=== PATIENT | female | born 1940 | race Caucasian/White ===

== ENCOUNTER → 2020-07-19 10:50 | Outpatient (BNVA) | payer MEDICARE, SELFPAY | PROVIDERS: PCP Internal Medicine; Visit Provider Surgery | DX: D05.12 Intraductal carcinoma in situ of left breast (principal) | CPT/HCPCS: 99212 ==

== ENCOUNTER → 2020-08-01 09:50 | Outpatient (BNV) | payer MEDICARE, SELFPAY | PROVIDERS: PCP Internal Medicine; Visit Provider Internal Medicine Medical Oncology | DX: D05.12 Intraductal carcinoma in situ of left breast (principal) | CPT/HCPCS: 99212; 99213; 99214 ==

== ENCOUNTER 2020-10-27 10:12 | Outpatient (REF) | payer MEDICARE, SELFPAY ==
[2020-10-27 12:08] LABS: Alanine Aminotransferase 27 U/L (0-31); Anion Gap 11 (12-20); Aspartate Amino Transferase 28 U/L (5-31); Blood Urea Nitrogen 13 mg/dL (9-16); Calcium 9.4 mg/dL (8.4-10.2); Carbon Dioxide 29 mmol/L (22-29); Chloride 108 mmol/L (96-108); Cholesterol 175 mg/dL; Estimated Glomerular Filt Rate > 60; Glucose Fasting 97 mg/dL (60-99); HDL Cholesterol 55 mg/dL; LDL Cholesterol Calculated 109 mg/dl; Potassium 4.6 mmol/L (3.3-5.1); Sodium 143 mmol/L (135-145); Triglycerides 59 mg/dL
[2020-10-27 12:10] LABS: Vitamin D 25-OH Total 43.8 ng/mL (>30)
== END 2020-10-27 10:13 | disposition home or self-care (01) ==
LOC: HO.LAB 10:12
PROVIDERS: PCP Internal Medicine; Visit Provider Internal Medicine
DX: E55.9 Vitamin D deficiency, unspecified (principal); E78.5 Hyperlipidemia, unspecified; I10 Essential (primary) hypertension; Z78.0 Asymptomatic menopausal state
CPT/HCPCS: 36415; 80048; 80061; 82306; 84450; 84460

== ENCOUNTER 2020-11-03 10:01 | Outpatient (REF) | payer MEDICARE, SELFPAY ==
--- NOTE | ~2020-11-03 | XR_ITS ---
EXAMINATION: XR BILATERAL HIPS WITH AP PELVIS CLINICAL INFORMATION: Left hip pain. COMPARISON: None TECHNIQUE: AP view of the pelvis and 2 views of each hip were obtained. FINDINGS: Moderate to severe bilateral hip joint osteoarthritis, with joint space loss more prominent axillary, osteophytes, subchondral sclerosis and cysts. No evidence of acute fracture or dislocation. Mild bilateral SI joint arthritis. Degenerative changes in the lower lumbar spine. Mild symphysis pubis degeneration. No acute pelvic fractures identified. XR/XR hip BI w PEL1V IMPRESSION: Moderate to severe bilateral hip joint osteoarthritis. Mild bilateral SI joint arthritis. Mild symphysis pubis degeneration.
== END 2020-11-03 10:02 | disposition home or self-care (01) ==
LOC: HO.HMGCX 10:01
PROVIDERS: PCP Internal Medicine; Visit Provider Internal Medicine
DX: M25.552 Pain in left hip (principal)
CPT/HCPCS: 73521

== ENCOUNTER → 2020-11-30 08:52 | Outpatient (BNVA) | payer MEDICARE, SELFPAY | PROVIDERS: Visit Provider Orthopaedic Surgery | DX: M48.061 Spinal stenosis, lumbar region without neurogenic claudication (principal) | CPT/HCPCS: 99202 ==

== ENCOUNTER 2021-03-10 09:00 | Outpatient (RCR) | payer MEDICARE, SELFPAY ==
--- NOTE | 2021-01-11 15:53 | MHC.PT.EP ---
[facility] [place] Office [place] Office [place] Office [address] Melodie Duvall [address] [phone] F: [phone] F: [phone] F: [phone] F: [phone] Physical Therapy Plan of Care Date of Evaluation: Date of Surgery: NA Diagnosis: OSTEOARTHRITIS OF BOTH HIPS Assessment: Pt IS 80 YO F REFERRED TO PT FROM DR HARRELL WITH OA SI AND HIP JOINTS. Pt REPORTS ON 08/2719 Pt WAS TRYING TO STAND UP FROM KNEELING AND WAS HAVING A HARD TIME GETTING UP. SHE REPORTS SINCE THEN SHE FEELS LIKE HER LEGS ARE WEAK AND HAS BEEN HAVING SOME PAIN IN LB/HIPS AND LES. PRESENTS TO PT WITH DECREASED LE ENDURANCE, LBP, SOME DECREASE IN LE FLEXIBILITY. SHOULD BENEFIT FROM PT TO ADDRESS THESE ISSUES. OF NOTE, Pt WAS GOING TO [facility] FOR EXERCISE 1X/WK REGULARLY BEFORE COVID AND HAS NOTE RETURNED. ED RE OK TO TRY THESE CLASSES AGAIN Frequency and Duration: The patient will be seen 2X/WK X 6 WKS Short Term Goals: 1. INCREASED AWARENESS BACK CARE 2. CENTRALIZE [employer] Goals: 1. I HEP WITH DC EX PLAN 2. DECREASED BACK PAIN AND LE PAIN AT LEAST 50% WITH ADLS Treatment Plan: Modalities to reduce pain, spasms and effusion. Manual therapy to restore motion and function. Therapeutic exercise to improve strength and flexibility. Neuromuscular re-education for posture and balance. Therapeutic activities to return to functional activities of daily living. Electronically signed by: RONEN TIM PT Please sign and return to therapist. Thank you for your referral.
--- NOTE | 2021-05-04 07:54 | MHC.PT.DC ---
[facility] [place] Office [place] Office [place] Office [address] Melodie Duvall [address] [phone] F: [phone] F: [phone] F: [phone] F: [phone] Physical Therapy Discharge Report Diagnosis: OSTEOARTHRITIS OF BOTH HIPS Date of Surgery: NA Date of Evaluation: 01/11/21 Date of Discharge: 03/10/21 Treatments to Date: 12 Cancellations to Date: No Shows to Date: Discharge Status: Achieved Goals Improved Function Independent with HEP Discharge Summary: PER ASSESSMENT FROM LAST NOTE (03/10/21): 'OVERALL BETTER THAN SOC, HAS MET MOST PT GOALS, TRANSITION TO SR CTR EXERCISE PROGRAMS' Electronically signed by: RONEN TIM PT Please sign and return to therapist. Thank you for your referral.
== END 2021-05-04 07:54 | disposition home or self-care (01) ==
LOC: HO.PT 09:00
PROVIDERS: PCP Internal Medicine; Visit Provider Internal Medicine
DX: M46.1 Sacroiliitis, not elsewhere classified (principal)
CPT/HCPCS: 97110; 97140; 97150; 97161; 97530

== ENCOUNTER → 2021-03-21 08:53 | Outpatient (BNVA) | payer MEDICARE, SELFPAY | PROVIDERS: PCP Internal Medicine; Referring Provider Internal Medicine; Visit Provider Surgery | DX: D05.12 Intraductal carcinoma in situ of left breast (principal) | CPT/HCPCS: 99212 ==

== ENCOUNTER 2021-04-11 08:25 | Outpatient (REF) | payer MEDICARE, SELFPAY ==
--- NOTE | ~2021-04-11 | MM_ITS ---
EXAMINATION: BONE DENSITOMETRY CLINICAL INDICATION: Asymptomatic menopausal state. COMPARISON: Previous BD dated 03/20/2018 and baseline BD dated 01/16/2010. TECHNIQUE: Using a [employer] DXA System (software version: 13.1) manufactured by [employer] you [employer], dual-energy x-ray absorptiometry was performed of the lumbar spine and left hip. The images are of good technical quality. Summary results are attached. FINDINGS: AP SPINE L1-L4: Current: BMD 0.960 g/cm2, Z-score -0.2, T-score -1.8, osteopenia, 3.6% increase from previous, 0.4% increase from baseline (<5% change is not significant). Prior: BMD 0.927 g/cm2. Baseline: BMD 0.956 g/cm2. LEFT FEMUR, NECK: Current: BMD 0.764 g/cm2, Z-score 0.0, T-score -2.0, osteopenia. Prior: BMD 0.700 g/cm2. Baseline: BMD 0.762 g/cm2. LEFT FEMUR, TOTAL: Current: BMD 0.747 g/cm2, Z-score -0.3, T-score -2.1, osteopenia, 0.8% decrease from previous, 7.2% decrease from baseline (<5% change is not significant). Prior: BMD 0.753 g/cm2. Baseline: BMD 0.805 g/cm2. IDENTIFIED RISK FACTORS: Height loss, low calcium intake, family history (parental hip fracture), menopause. HISTORY OF FRACTURE: None listed. MEDICATIONS: Calcium supplements or multivitamin, vitamin D. MM/XR DEXA axial skeleton IMPRESSION: 1. DIAGNOSIS: Osteopenia based on the lowest T-score value of -2.1 in the total femur applying World Health Organization criteria. 2. 10-YEAR FRACTURE RISK PREDICTION, FRAX: Major osteoporotic fracture (clinical spine, forearm, hip or shoulder) 27.1%. Hip fracture 16.9%. 3. Treatment Recommendations: NOF guidelines recommend consideration for treatment in postmenopausal women and men age 50 and older presenting with the following: -A hip or vertebral (clinical or morphometric) fracture. -T-score less than or equal to -2.5 at the femoral neck or spine after appropriate evaluation to exclude secondary causes. -Low bone mass at the hip or spine and a 10-year fracture probability by FRAX of greater than or equal to 3% for hip fracture or greater than or equal to 20% for major osteoporotic fracture based on the [place] adapted WHO algorithm. 4. Other Recommendations: All treatment decisions require clinical judgment and consideration of individual patient factors, including patient preferences, comorbidities, previous drug use, risk factors not captured in the FRAX model (e.g. frailty, falls, vitamin D deficiency, increased bone turnover, interval significant decline in bone density) and possible under or overestimation of fracture risk by FRAX. Additional medical evaluation for secondary cause of low bone mineral density may be appropriate. FUTURE SCAN RECOMMENDATION: People with diagnosed cases of osteoporosis or at high risk for fracture should have regular bone mineral density tests. For patients eligible for Medicare, routine testing is allowed once every 2 years. The testing frequency can be increased to one year for patients who have rapidly progressing disease, those who are receiving or discontinuing medical therapy to restore bone mass, or have additional risk factors.
--- NOTE | ~2021-04-11 | MM_ITS ---
EXAMINATION: MM SCREENING DIGITAL BREAST TOMOSYNTHESIS, BILATERAL CLINICAL INFORMATION: Screening. Asymptomatic. 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 COMPARISON: Mammography: 03/25/2020, 03/23/2019, 03/20/2018 TECHNIQUE: Digital breast tomosynthesis is performed in both the craniocaudal and mediolateral oblique views along with computer-aided detection (CAD). Synthesized 2D images are generated from the tomosynthesis. FINDINGS: The breasts are heterogeneously dense, which may obscure small masses (ACR BI-RADS breast composition Category c). There are no significant masses, abnormal calcifications, or other abnormalities. Parenchymal pattern is similar to prior studies. No developing density. The axilla and skin contours are unremarkable. MM/MM tomosynthesis screening BI IMPRESSION: No mammographic evidence of malignancy. ASSESSMENT: BI-RADS 1: Negative RECOMMENDATION: Routine annual mammography screening. This patient's information was entered into a reminder system with a target due date for their next mammogram.
== END 2021-04-11 08:26 | disposition home or self-care (01) ==
LOC: HO.MAMMO 08:25
PROVIDERS: Visit Provider Internal Medicine
DX: Z13.820 Encounter for screening for osteoporosis (principal); Z78.0 Asymptomatic menopausal state; Z12.31 Encounter for screening mammogram for malignant neoplasm of breast
CPT/HCPCS: 77063; 77067; 77080

== ENCOUNTER 2021-04-12 09:14 | Outpatient (REF) | payer MEDICARE, SELFPAY ==
[2021-04-12 10:04] LABS: Alanine Aminotransferase 29 U/L (0-31); Aspartate Amino Transferase 28 U/L (5-31); Cholesterol 172 mg/dL; HDL Cholesterol 48 mg/dL; LDL Cholesterol Calculated 113 mg/dl; Triglycerides 55 mg/dL
[2021-04-12 10:26] LABS: Vitamin D 25-OH Total 41.2 ng/mL (>30)
== END 2021-04-12 09:15 | disposition home or self-care (01) ==
LOC: HO.LAB 09:14
PROVIDERS: PCP Internal Medicine; Visit Provider Internal Medicine
DX: E78.5 Hyperlipidemia, unspecified (principal); I10 Essential (primary) hypertension
CPT/HCPCS: 36415; 80061; 82306; 84450; 84460

== ENCOUNTER 2021-12-13 08:51 | Outpatient (REF) | payer MEDICARE, SELFPAY ==
[2021-12-13 10:16] LABS: Cholesterol 225 mg/dL; HDL Cholesterol 51 mg/dL; LDL Cholesterol Calculated 157 mg/dl; Triglycerides 85 mg/dL
[2021-12-13 10:37] LABS: Vitamin D 25-OH Total 38.4 ng/mL (>30)
== END 2021-12-13 08:52 | disposition home or self-care (01) ==
LOC: HO.LAB 08:51
PROVIDERS: PCP Internal Medicine; Visit Provider Internal Medicine
DX: E78.5 Hyperlipidemia, unspecified (principal); I10 Essential (primary) hypertension; M85.89 Other specified disorders of bone density and structure, multiple sites; Z78.0 Asymptomatic menopausal state
CPT/HCPCS: 36415; 80061; 82306

== ENCOUNTER → 2022-03-22 09:23 | Outpatient (BNVA) | payer MEDICARE, SELFPAY | PROVIDERS: PCP Internal Medicine; Visit Provider Surgery | DX: D05.12 Intraductal carcinoma in situ of left breast (principal) | CPT/HCPCS: 99212 ==

== ENCOUNTER 2022-04-12 08:53 | Outpatient (REF) | payer MEDICARE, SELFPAY ==
--- NOTE | ~2022-04-12 | MM_ITS ---
EXAMINATION: MM SCREENING DIGITAL BREAST TOMOSYNTHESIS, BILATERAL CLINICAL INFORMATION: Screening. Asymptomatic. Left lumpectomy for DCIS, 2011. COMPARISON: Mammography: 04/11/2021, 03/25/2020, 03/23/2019 TECHNIQUE: Digital breast tomosynthesis is performed in both the craniocaudal and mediolateral oblique views along with computer-aided detection (CAD). Synthesized 2D images are generated from the tomosynthesis. FINDINGS: The breasts are heterogeneously dense, which may obscure small masses (ACR BI-RADS breast composition Category c). There is minor scarring on left and mild reduced breast size consistent with the prior lumpectomy. Parenchymal pattern is similar to prior exams. There are no significant masses, abnormal calcifications, or other abnormalities. There is no developing density or interval architectural abnormality. The axilla are unremarkable. MM/MM tomosynthesis screening BI IMPRESSION: No mammographic evidence of malignancy. ASSESSMENT: BI-RADS 2: Benign RECOMMENDATION: Routine annual mammography screening. This patient's information was entered into a reminder system with a target due date for their next mammogram.
== END 2022-04-12 08:54 | disposition home or self-care (01) ==
LOC: HO.MAMMO 08:53
PROVIDERS: PCP Internal Medicine; Visit Provider Internal Medicine
DX: Z12.31 Encounter for screening mammogram for malignant neoplasm of breast (principal)
CPT/HCPCS: 77063; 77067

== ENCOUNTER 2022-05-25 09:05 | Outpatient (REF) | payer MEDICARE, SELFPAY ==
[2022-05-25 10:28] LABS: Alanine Aminotransferase 196 U/L (0-31); Anion Gap 14 (12-20); Aspartate Amino Transferase 146 U/L (5-31); Blood Urea Nitrogen 11 mg/dL (9-16); Calcium 9.3 mg/dL (8.4-10.2); Carbon Dioxide 27 mmol/L (22-29); Chloride 105 mmol/L (96-108); Cholesterol 250 mg/dL; Estimated Glomerular Filt Rate > 60; Glucose Fasting 102 mg/dL (60-99); HDL Cholesterol 65 mg/dL; LDL Cholesterol Calculated 170 mg/dl; Potassium 4.2 mmol/L (3.3-5.1); Sodium 142 mmol/L (135-145); Triglycerides 79 mg/dL
== END 2022-05-25 09:06 | disposition home or self-care (01) ==
LOC: HO.LAB 09:05
PROVIDERS: PCP Internal Medicine; Visit Provider Internal Medicine
DX: I10 Essential (primary) hypertension (principal); E78.5 Hyperlipidemia, unspecified
CPT/HCPCS: 36415; 80048; 80061; 82550; 84450; 84460

== ENCOUNTER 2022-06-08 13:11 | Outpatient (REF) | payer MEDICARE, SELFPAY ==
[2022-06-08 14:13] LABS: Urine Cytology See Pathology rpt
[2022-06-08 14:30] LABS: Appearance Urine Turbid; Color Urine Dark Yellow; Glucose Urine UA Negative (Negative); Leukocyte Esterase Urine Small (1+) (Negative); Nitrite Urine Positive (Negative); PH 5.5 (5.0-9.0); Specific Gravity - Urine >= 1.030 (1.005-1.025); UMIC TRIGGER UACC YES; Urine Blood Trace (Negative); Urine Ketones Negative (Negative); Urine Protein 100 (2+) mg/dL (Neg-Trace)
[2022-06-08 14:42] LABS: Bacteria Urine None Seen (None Seen); Calcium Oxalate Crystals Urine Present; Granular Casts Urine Present; UACC Culture Trigger YES; WBC Urine 0-5 /HPF (0-5)
[2022-06-08 14:55] LABS: Alanine Aminotransferase 1007 U/L (0-31); Albumin Level 4.3 g/dL (3.5-5.0); Alkaline Phosphatase 1007 U/L (39-117); Aspartate Amino Transferase 894 U/L (5-31); Bilirubin Total 9.6 mg/dL (0.0-1.0); Total Protein 7.4 g/dL (6.5-8.0)
[2022-06-11 05:48] LABS: HBS Num1 3.23 mIU/mL (0-7.99); HBc Num1 0.14 S/CO (0.00-0.79); HBsAGNum1 0.17 S/CO (0.00-0.99); Hepatitis B Core Antibody Nonreactive (Nonreactive); Hepatitis B Surface Antigen Negative (Negative); ~HepC Num1 0.18 S/CO (0.00-0.79); ~Hepatitis B Surface Antibody NONREACTIVE (Nonreactive); ~Hepatitis C Antibody Nonreactive (Nonreactive)
[2022-06-12 17:49] LABS: Parvovirus B19 IgG 6.31; Parvovirus B19 IgM <0.9
[2022-06-13 04:33] LABS: Hepatitis A Antibody IgM 0.34 Index (0-0.79); ~Hepatitis A Antibody IgM Nonreactive (Nonreactive)
== END 2022-06-08 13:12 | disposition home or self-care (01) ==
LOC: HO.HMGCLDS 13:11
PROVIDERS: PCP Internal Medicine; Visit Provider Internal Medicine
DX: R10.11 Right upper quadrant pain (principal); R17 Unspecified jaundice; R74.8 Abnormal levels of other serum enzymes
CPT/HCPCS: 36415; 80076; 81001; 86704; 86706; 86709; 86747; 86803; 87086; 87340; 88112

== ENCOUNTER 2022-06-11 09:20 | Outpatient (REF) | payer MEDICARE, SELFPAY ==
--- NOTE | ~2022-06-11 | US_ITS ---
EXAMINATION: US ABDOMEN COMPLETE CLINICAL INFORMATION: Right upper quadrant pain. COMPARISON: No prior abdominal ultrasound currently available for comparison. CT scan of the abdomen dated August 28, 2006. TECHNIQUE: Real-time imaging of the abdominal viscera. FINDINGS: PANCREAS: Not well visualized. ABDOMINAL AORTA: The proximal, mid, and distal segments are normal in caliber. INFERIOR VENA CAVA: Visualized portions are normal. LIVER: The technologist does not submitted images measuring the size of the liver. The liver contour appears unremarkable. Parenchymal echogenicity appears unremarkable. No focal hepatic lesion is demonstrated on the images submitted. The previously identified right hepatic hemangioma was not visualized by the technologist. Moderate intrahepatic biliary ductal dilation is seen. Hepatopedal portal flow. GALLBLADDER: Mildly distended gallbladder, measuring approximately 13.7 cm in length by 5.1 cm in diameter. Layering echogenic bile/sludge. The gallbladder is physiologically distended without evidence of stones, polyps, wall thickening or pericholecystic fluid. Technologist reports positive sonographic Mayo's sign. COMMON BILE DUCT: Measures 2.1 cm in diameter. RIGHT KIDNEY: No hydronephrosis. No renal calculi or focal parenchymal lesions. The kidney measures 10.8 cm in maximum dimension. LEFT KIDNEY: No hydronephrosis. No renal calculi or focal parenchymal lesions. The kidney measures 10.7 cm in maximum dimension. SPLEEN: The spleen measures 8.0 cm in maximum dimension. FREE FLUID: None. US/US abdomen complete IMPRESSION: Abnormal intra and extrahepatic biliary ductal dilation. Pancreas not well visualized on the images submitted. Occult neoplasm cannot be excluded. Contrast-enhanced MRI is recommended for further evaluation. Mildly distended gallbladder containing layering, echogenic bile/sludge. No evidence of gallbladder wall thickening. Technologist reports positive sonographic Mayo's sign.
== END 2022-06-11 09:21 | disposition home or self-care (01) ==
LOC: HO.HMGCX 09:20
PROVIDERS: PCP Internal Medicine; Visit Provider Internal Medicine
DX: R10.11 Right upper quadrant pain (principal); R74.8 Abnormal levels of other serum enzymes; R17 Unspecified jaundice
CPT/HCPCS: 76700

== ENCOUNTER 2022-06-12 11:53 | Outpatient (REF) | payer MEDICARE, SELFPAY ==
[2022-06-12 14:28] LABS: Alanine Aminotransferase 1098 U/L (0-31); Albumin Level 4.1 g/dL (3.5-5.0); Alkaline Phosphatase 885 U/L (39-117); Aspartate Amino Transferase 835 U/L (5-31); Bilirubin Direct 8.2 mg/dL (0.0-0.5); Bilirubin Total 12.1 mg/dL (0.0-1.0); Gamma Glutamyl Transpeptidase 1598 U/L (7-33); Lipase 84 U/L (8-78); Total Protein 6.9 g/dL (6.5-8.0)
== END 2022-06-12 11:54 | disposition home or self-care (01) ==
LOC: HO.LAB 11:53
PROVIDERS: PCP Internal Medicine; Visit Provider Internal Medicine
DX: R17 Unspecified jaundice (principal); R74.8 Abnormal levels of other serum enzymes
CPT/HCPCS: 36415; 80076; 82977; 83690; 86704; 86706; 87340; 99202

== ENCOUNTER 2022-06-12 16:21 | Inpatient (IN) | payer MEDICARE, SELFPAY ==
--- NOTE | ~2022-06-12 | MR_ITS ---
EXAMINATION: MR ABDOMEN WITHOUT AND WITH CONTRAST CLINICAL INFORMATION: Pancreatic cancer COMPARISON: CT 06/12/2022 TECHNIQUE: MR abdomen was performed without and with use of 7 mL intravenous Gadavist gadolinium contrast. Postcontrast images are performed in multiphase dynamic sequences. Imaging was performed in 3 planes. FINDINGS: LUNG BASES: The visualized lung bases are unremarkable. LIVER, GALLBLADDER, AND BILIARY TREE: The liver is normal in size, smooth in contour, and normal in signal. There is diffuse intrahepatic and extrahepatic biliary ductal dilatation. The common hepatic duct measures up to 2 cm. Centrally in segment 7 there is a and T1 dark lesion which has signal characteristics consistent with a hemangioma on postcontrast imaging.. Distended gallbladder with layering sludge internally. The common bile duct is not seen beyond its mid course, possibly occluded by external compression versus intraductal expansion of mass. PANCREAS: Diffuse pancreatic atrophy. The pancreatic duct is dilated to 0.7 cm in the pancreatic body. There is change in signal expanding the duct at the pancreatic neck, appearing more isointense on T1-weighted imaging compared to the adjacent duct which is low in signal. There is suggestion of mild enhancement in this region. Somewhat heterogeneous appearance of the tissue at the pancreatic head with somewhat nodular contour, may also represent an associated mass. This is difficult to specifically measure, though this area of tissue measures 3.5 cm on series 101 image 62. The superior mesenteric artery and superior mesenteric vein have no adjacent mass. SPLEEN: Normal. ADRENAL GLANDS: Normal. KIDNEYS AND URETERS: The kidneys are normal in size, shape, and enhance symmetrically. No hydronephrosis. No perinephric stranding. GASTROINTESTINAL TRACT: No bowel obstruction. No ascites or fluid collection. ABDOMINAL WALL: No significant hernia is appreciated. LYMPH NODES: No lymphadenopathy. VASCULAR: Unremarkable. OSSEOUS STRUCTURES: Marrow signal normal. MR/MR abdomen wo/w con IMPRESSION: 1. Abnormal appearance of the pancreatic duct. There is change in signal expanding the pancreatic duct at the pancreatic neck. There is suggestion of mild enhancement in this region. This is suggestive of a mass within the duct. The adjacent pancreatic head tissue is somewhat heterogeneous and could represent additional mass. 2. The common bile duct is not seen beyond its mid course, possibly occluded by external compression versus intraductal expansion of mass. There is diffuse intrahepatic and extrahepatic biliary ductal dilatation. Distended gallbladder with layering sludge. 3. Hepatic hemangioma.
--- NOTE | ~2022-06-12 | FL_ITS ---
EXAMINATION: XR FLUOROSCOPY WITH IMAGES CLINICAL INFORMATION: ERCP COMPARISON: MRI from 06/13/2022. TECHNIQUE: Fluoroscopy Supervised By: Dr. Pierre Quiñones. Fluoroscopy Time: 229.4 seconds. Cumulative Dose: 58.47 mGy. Images: 5. FINDINGS: An endoscope is noted. There is cannulation of the pancreatic duct. A stent is initially noted, though is not seen on the final images. No definite contrast seen. FL/FL guidance in OR IMPRESSION: Fluoroscopic guidance for ERCP. Please refer to procedural report for further information.
--- NOTE | ~2022-06-12 | IR_ITS ---
EXAMINATION: PERCUTANEOUS TRANSHEPATIC CHOLANGIOGRAM AND EXTERNAL BILIARY DRAINAGE catheter placement CLINICAL INFORMATION: Jaundice. PTC for failed ERCP. COMPARISON: Previous ultrasound CT and MRI from earlier this month TECHNIQUE: Procedure and risks and benefits including bleeding, infection, injury to the liver were discussed with the patient and informed consent was obtained. The right upper quadrant was prepped and draped in the usual sterile fashion. The skin and soft tissues were anesthetized with 1% lidocaine plain. Using ultrasound and fluoroscopic guidance, access to a peripheral right-sided intrahepatic bile duct was obtained. Contrast was injected confirming intraductal location. Over an 018 wire, a 6 [place] AccuStick system was positioned in the right-sided intrahepatic bile ducts. Contrast was injected confirming adequate placement in the bile duct. An 035 guidewire was advanced through the 6 [place] dilator. This passed without resistance centrally. Following serial dilatation, an 8.5 [place] biliary drainage catheter was positioned. Bile specimen was sent for culture and cytology. Patient received Versed 2 mg and fentanyl 100 mcg intravenously during the procedure. Conscious sedation was provided by registered nurse under my direct supervision. Tdqp-na-axqb contact time was 55 minutes. FINDINGS: There is right-sided intrahepatic biliary duct dilatation. There is limited filling of the left-sided intrahepatic bile ducts. The common hepatic and common bile duct appear dilated. There is an abrupt cut off of the distal common bile duct. There is no contrast opacification of the duodenum. Final images demonstrate placement of an external biliary drainage catheter with pigtail coiled in the common bile duct. Fluoroscopy time 8.6 minutes. DAP 1293 loja per centimeter squared. 11 saved fluoroscopic images. IR/IR us guide needle place IMPRESSION: Percutaneous right transhepatic cholangiogram and placement of an external biliary drainage catheter with tip coiled in the common bile duct.
--- NOTE | ~2022-06-12 | IR_ITS ---
EXAMINATION: PERCUTANEOUS TRANSHEPATIC CHOLANGIOGRAM AND EXTERNAL BILIARY DRAINAGE catheter placement CLINICAL INFORMATION: Jaundice. PTC for failed ERCP. COMPARISON: Previous ultrasound CT and MRI from earlier this month TECHNIQUE: Procedure and risks and benefits including bleeding, infection, injury to the liver were discussed with the patient and informed consent was obtained. The right upper quadrant was prepped and draped in the usual sterile fashion. The skin and soft tissues were anesthetized with 1% lidocaine plain. Using ultrasound and fluoroscopic guidance, access to a peripheral right-sided intrahepatic bile duct was obtained. Contrast was injected confirming intraductal location. Over an 018 wire, a 6 [place] AccuStick system was positioned in the right-sided intrahepatic bile ducts. Contrast was injected confirming adequate placement in the bile duct. An 035 guidewire was advanced through the 6 [place] dilator. This passed without resistance centrally. Following serial dilatation, an 8.5 [place] biliary drainage catheter was positioned. Bile specimen was sent for culture and cytology. Patient received Versed 2 mg and fentanyl 100 mcg intravenously during the procedure. Conscious sedation was provided by registered nurse under my direct supervision. [id number]-ct-[id number] contact time was 55 minutes. FINDINGS: There is right-sided intrahepatic biliary duct dilatation. There is limited filling of the left-sided intrahepatic bile ducts. The common hepatic and common bile duct appear dilated. There is an abrupt cut off of the distal common bile duct. There is no contrast opacification of the duodenum. Final images demonstrate placement of an external biliary drainage catheter with pigtail coiled in the common bile duct. Fluoroscopy time 8.6 minutes. DAP 1293 loja per centimeter squared. 11 saved fluoroscopic images. IR/IR fluoro guided needle place IMPRESSION: Percutaneous right transhepatic cholangiogram and placement of an external biliary drainage catheter with tip coiled in the common bile duct.
--- NOTE | ~2022-06-12 | CT_ITS ---
EXAMINATION: CT ABDOMEN AND PELVIS WITH CONTRAST CLINICAL INFORMATION: Painless jaundice, elevated bilirubin COMPARISON: Ultrasound 06/11/2022 TECHNIQUE: Multidetector volumetric images were obtained from the superior aspect of the liver through the pubic symphysis following administration 85 mL of Omnipaque 350 intravenous contrast. Sagittal and coronal reformatted images were obtained on the technologist's workstation. Oral contrast: No This CT examination was performed using dose optimization techniques as appropriate, variously including the following: *Automated exposure control *Adjustment of mA and/or kV according to patient size (this includes techniques or standardized protocols for targeted exams where dose is matched to indication/reason for exam; i.e. extremities or head) *Use of iterative reconstruction technique DLP: 454 mGy-cm FINDINGS: LUNG BASES: Mild curvilinear atelectasis versus scarring in the left lower lobe. LIVER, GALLBLADDER, AND BILIARY TREE: The liver is normal in size, shape, and attenuation. There is moderate dilation of the intrahepatic ducts and prominent dilation of the proximal common bile duct with narrowing noted distally. Gallbladder is prominently distended without significant wall thickening or surrounding inflammation. PANCREAS: The pancreatic body and tail is atrophic with ductal dilatation is related. There is abrupt cutoff of the dilated pancreatic duct in the region of the pancreatic head where there is prominent soft tissue density images most suspicious for a mass. Margins are not well delineated, and this is suspected to measure up to approximately 4 cm in diameter. Mass is suspected to come within close proximity to the superior mesenteric vein where there is some stranding in the perivascular fat. SPLEEN: Unremarkable. ADRENAL GLANDS: Unremarkable. KIDNEYS AND URETERS: The kidneys are normal in size, shape, and attenuation. No hydronephrosis, hydroureter, or calculi seen. Small hypodensity in the right kidney statistically favors a cyst; no follow-up recommended. No perinephric stranding. BLADDER: Unremarkable. GASTROINTESTINAL TRACT: There is colonic diverticulosis without diverticulitis. The small and large bowel are otherwise unremarkable without evidence of obstruction or pericolonic inflammatory change. The appendix is unremarkable. No free fluid or free air is seen. ABDOMINAL WALL: No significant hernia is appreciated. LYMPH NODES: Normal. VASCULAR: Moderate atherosclerotic calcifications are present. PELVIC VISCERA: Unremarkable. OSSEOUS STRUCTURES: Degenerative changes are present most prominently in the lower lumbar spine. CT/CT abdomen pelvis w IV con IMPRESSION: 1. Masslike density in the region of the pancreatic head measuring up to approximately 4 cm, highly suspicious for malignancy. There is associated obstruction of the common bile duct and pancreatic duct with upstream dilatation. 2. Prominent distention of the gallbladder without significant wall thickening or surrounding inflammation. 3. Colonic diverticulosis without diverticulitis.
--- NOTE | 2022-06-12 17:23 | ED.GENADULT ---
HPI - General Adult General Chief complaint: Recheck/Abnormal Lab/Rx <Dodie Slater MD - Last Filed: 06/12/22 17:28> Stated complaint: Liver issues/Abnormal labs <Dodie Slater MD - Last Filed: 06/12/22 17:28> Time Seen by Provider: 06/12/22 17:44 <Dodie Slater MD - Last Filed: 06/12/22 17:28> Source: patient <Maulik Hills MD - Last Filed: 06/13/22 00:11> Mode of arrival: ambulatory <Maulik Hills MD - Last Filed: 06/13/22 00:11> Limitations: no limitations <Maulik Hills MD - Last Filed: 06/13/22 00:11> History of Present Illness HPI narrative: Patient is 81 years old with history of left-sided DCIS status post lumpectomy 2011, XRT 2012 healthy otherwise for last 2 weeks patient been feeling weak loss of appetite with increased gas in abdomen last week also noticed dark urination seen her PCP on 06/08 lab workup showed elevated LFTs and bilirubin ultrasound done today showed abnormally dilated intra and extrahepatic biliary ducts with sludge in the gallbladder CBD of 2.1 cm seen by ambulance officer today advice CT scan and MRI to rule out obstructive lesion patient denies any confusion no history of Tylenol intake no history of hepatitis lab workup done on 06/08 hepatitis profile was negative <Maulik Hills MD - Last Filed: 06/13/22 00:11> Related Data Home medications: Previous Rx's Medication Instructions Recorded metoprolol succinate 25 mg 25 mg PO DAILY #90 caps 09/04/21 tablet,extended release 24 hr <Dodie Slater MD - Last Filed: 06/12/22 17:28> Allergies/adverse reactions: Allergies Allergy/AdvReac Type Severity Reaction Status Date / Time amoxicillin [Amoxicillin] Allergy Unknown NAUSEA, Verified 06/12/22 11:00 vomiting, severe GI problems <Dodie Slater MD - Last Filed: 06/12/22 17:28> Review of Systems Review of Systems: Yes all other systems are reviewed and are negative <Maulik Hills MD - Last Filed: 06/13/22 00:11> [facility] Past Medical History Medical History: Medical History Ductal carcinoma in situ of left breast Dyslipidemia Elevated liver enzymes Essential hypertension H/O cyst of breast Hip pain, left Jaundice Menopause Osteoarthritis of both sacroiliac joints Osteoarthritis of hips, bilateral Osteopenia of multiple sites Right upper quadrant abdominal pain UTI (urinary tract infection) Vitamin D deficiency, unspecified <Dodie Slater MD - Last Filed: 06/12/22 17:28> Surgical History: Surgical History H/O colonoscopy History of cataract surgery History of eyelid surgery Hx of tonsillectomy Status post left breast lumpectomy <Dodie Slater MD - Last Filed: 06/12/22 17:28> Family History Family History: Family History Father No problems noted. Mother No problems noted. Sister H/O thyroid disease <Dodie Slater MD - Last Filed: 06/12/22 17:28> Social History Social History: Social History Housing: House Alcohol intake: never Patient Tobacco Use Status: Never used Tobacco e-Cigarette/Vaping Use: Never Used Advance Directives: No Advance Directives Information Provided: No Current occupational status: retired Cognitive needs: No Hearing needs: No Vision needs: No <Dodie Slater MD - Last Filed: 06/12/22 17:28> Physical Exam ED Vital Signs: Vital Signs - 24 hr 06/12/22 17:25 06/12/22 18:59 Temperature 97.9 F 98.1 F Pulse Rate 74 70 Respiratory Rate 16 18 Blood Pressure 182/85 H 168/77 H Pulse Oximetry 98 98 Oxygen Delivery Method Room Air Room Air BMI result Body Mass Index 25.0 <Dodie Slater MD - Last Filed: 06/12/22 17:28> Vital Signs - 24 hr 06/12/22 17:25 06/12/22 18:59 Temperature 97.9 F 98.1 F Pulse Rate 74 70 Respiratory Rate 16 18 Blood Pressure 182/85 H 168/77 H Pulse Oximetry 98 98 Oxygen Delivery Method Room Air Room Air BMI result Body Mass Index 25.0 <Maulik Hills MD - Last Filed: 06/13/22 00:11> Appearance: Alert. Oriented X3. No acute distress. Eyes: PERRLA, No Nystagmus deeply icteric ENT: Pharynx normal. Oral Mucosa moist Neck: Normal inspection. Neck supple. CVS: Normal heart rate and rhythm. Pulses normal. Respiratory: No respiratory distress. Equal air entry bilateral, no wheezing/rales/rhonchi Abdomen: Soft and nontender. Bowel sounds are present, no mass palpable, no CVA tenderness Skin: Skin warm and dry. Deeply icteric. Normal skin turgor. Extremities: No lower extremity edema. No calf tenderness Neuro: Oriented X 3. No motor deficit. No sensory deficit.No cerebellar signs , cranial nerves II-XII intact <Maulik Hills MD - Last Filed: 06/13/22 00:11> Course Course Course Narrative: 81F painless jaundice with hx of left breast ca, no fevers/chills/vomiting/diarrhea. Back pain for months. VS Reviewed GEN: NAD EYES: Scleral icterus EARS: wnl THROAT: wnl LUNGS: CTAB CVS: RRR ABD: NT/ND SKIN: Jaundice <Dodie Slater MD - Last Filed: 06/12/22 17:28> Medications Administered Generic Name Dose Route Start Last Admin Trade Name Freq PRN Reason Stop Dose Admin Dextrose/Sodium Chloride 1,000 mls @ 80 mls/hr 06/12/22 19:15 06/12/22 20:59 D51/2ns IVCONT 80 mls/hr .[id number] ELIZABETH Administration Discontinued Medications Generic Name Dose Route Start Last Admin Trade Name Freq PRN Reason Stop Dose Admin Iohexol 100 ml 06/12/22 18:43 06/12/22 18:44 Iohexol 350 Mg/Ml 100 Ml Infus..Btl IV 06/12/22 18:44 85 ml ONCE ONE Administration <Dodie Slater MD - Last Filed: 06/12/22 17:28> Medications Administered Generic Name Dose Route Start Last Admin Trade Name Freq PRN Reason Stop Dose Admin Dextrose/Sodium Chloride 1,000 mls @ 80 mls/hr 06/12/22 19:15 06/12/22 20:59 D51/2ns IVCONT 80 mls/hr .[id number] ELIZABETH Administration Discontinued Medications Generic Name Dose Route Start Last Admin Trade Name Kristin PRN Reason Stop Dose Admin Iohexol 100 ml 06/12/22 18:43 06/12/22 18:44 Iohexol 350 Mg/Ml 100 Ml Infus..Btl IV 06/12/22 18:44 85 ml ONCE ONE Administration <Maulik Hills MD - Last Filed: 06/13/22 00:11> Medical Decision Making Medical Decision Making MDM Narrative: Patient with obstructive jaundice of short duration workup showed pancreatic mass as a cause for CBD dilatation. Will admit patient for further evaluation <Maulik Hills MD - Last Filed: 06/13/22 00:11> Differential Diagnoses: Differential diagnosis (Pancreatic mass, CBD stone, hepatitis) Differential Diagnosis: The differential diagnosis associated with the patient?s presentation includes: <Maulik Hills MD - Last Filed: 06/13/22 00:11> Lab Attestation: I reviewed the patient's lab results. <Maulik Hills MD - Last Filed: 06/13/22 00:11> Discharge Plan Discharge Clinical Impression: Pancreatic cancer, Obstructive jaundice <Dodie Slater MD - Last Filed: 06/12/22 17:28> Patient Disposition: Admitted As Inpatient <Dodie Slater MD - Last Filed: 06/12/22 17:28>
[2022-06-12 17:25] VITALS: BP 182/85; PULSE 74; RESP 16; TEMP 36.6; O2SAT 98; BMI 25.0
[2022-06-12 17:41] LABS: MANUAL DIFF FLAG NO
[2022-06-12 17:43] LABS: Basophils Absolute Auto 0.1 X10*3/uL (0.0-0.2); Basophils Percent Auto 1.1 % (0-2); Eosinophils Absolute Auto 0.1 X10*3/uL (0.0-0.4); Eosinophils Percent Auto 2.6 % (0-4); Hematocrit 35.4 % (37.0-47.0); Hemoglobin 12.3 g/dl (12.0-16.0); Lymphocytes Absolute Auto 1.4 X10*3/uL (1.2-4.9); Lymphocytes Percent Auto 30.2 % (20-40); Mean Corpuscular HGB Conc 34.7 g/dl (31.0-35.0); Mean Corpuscular Volume 86.3 fL (80.0-98.0); Mean Platelet Volume 10.1 fL (9.4-12.3); Monocytes Absolute Auto 0.6 X10*3/uL (0.1-1.2); Monocytes Percent Auto 13.4 % (2-11); Neutrophils Absolute Auto 2.5 x10*3/uL (2.0-8.3); Neutrophils Percent Auto 52.7 % (45-73); Platelet Count 241 X10*3/uL (160-400); Red Cell Distribution Width 15.9 % (11.0-16.0); White Blood Count 4.7 X10*3/uL (4.8-10.8)
[2022-06-12 17:51] LABS: INTERNATIONAL NORM RATIO 0.9 (0.9-1.1); Prothrombin Time 10.1 SEC (10.0-13.1)
[2022-06-12 17:54] LABS: Partial Thromboplastin Time 31.6 SEC (26.0-36.4)
[2022-06-12 17:57] LABS: Alanine Aminotransferase 1085 U/L (0-31); Albumin Level 4.1 g/dL (3.5-5.0); Alkaline Phosphatase 871 U/L (39-117); Anion Gap 10 (12-20); Aspartate Amino Transferase 785 U/L (5-31); Bilirubin Total 12.2 mg/dL (0.0-1.0); Blood Urea Nitrogen 15 mg/dL (9-16); Calcium 9.6 mg/dL (8.4-10.2); Carbon Dioxide 26 mmol/L (22-29); Chloride 108 mmol/L (96-108); Creatinine Clr Calc Pharmacy 53.3; Estimated Glomerular Filt Rate > 60; Glucose Random 111 mg/dL (60-115); Potassium 3.9 mmol/L (3.3-5.1); Sodium 140 mmol/L (135-145); Total Protein 7.1 g/dL (6.5-8.0)
[2022-06-12] MEDS: iohexoL 350 MG/ML 100 ML INFUS..BTL IV (18:44)
--- NOTE | 2022-06-12 18:48 | PC.NURSE ---
CT SCAN COMPLETED
[2022-06-12 18:59] VITALS: BP 168/77; PULSE 70; RESP 18; TEMP 36.7; O2SAT 98
[2022-06-12 19:32] LABS: COVID-19 Test Positive (Negative); IDNOW Serial# 16C4AD1C
--- NOTE | 2022-06-12 20:30 | P.HPHOSP_ITS ---
History of Present Illness Date of Service: 06/12/22 Chief Complaint: Jaundice This is a 81-year-old female with pertinent history left-sided DCIS status post surgery, radiation therapy in 2011, essential hypertension, hyperlipidemia who was sent to the emergency department by Gastroenterology for evaluation of jacqueline jonas. Patient states she has been feeling weak for the last 10 days. It is associated with poor appetite and she has lost 5 lb in 10 days. Patient states she has also noticed yellowish discoloration for skin, change in color of her urine and stool. Patient went to her PCP on Saturday and ultrasound of the abdomen was done which revealed dilated intra and extrahepatic biliary ducts. Patient went to see Dr. Lawson, Gastroenterology who recommended admission for further workup. No history of pancreatic cancer in the family. Patient denies smoking. Patient previously used to take occasional Tylenol but stopped since Saturday. She denies abdominal discomfort, fever, chills, nausea, vomiting, chest pain, shortness of breath, palpitations. In the emergency department, CT scan of the abdomen with masslike density in the region of pancreatic head approximately 4 cm highly suspicious for malignancy Review of Systems Constitutional: Constitutional: Reports fatigue, Reports malaise and Reports weight loss Cardiovascular: Cardiovascular: Reports no additional cardiovascular complaints Respiratory: Respiratory: Reports no additional respiratory complaints Endocrine: Endocrine: Reports fatigue PMFSH Medical History Ductal carcinoma in situ of left breast Dyslipidemia Elevated liver enzymes Essential hypertension H/O cyst of breast Hip pain, left Jaundice Menopause 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 Mother No problems noted. Sister H/O thyroid disease Pertinent family history: No family history of cancer Surgical History H/O colonoscopy History of cataract surgery History of eyelid surgery Hx of tonsillectomy Status post left breast lumpectomy Social History Housing: House Alcohol intake: never Patient Tobacco Use Status: Never used Tobacco e-Cigarette/Vaping Use: Never Used Advance Directives: No Advance Directives Information Provided: No Current occupational status: retired Cognitive needs: No Hearing needs: No Vision needs: No Meds Allergies Allergy/AdvReac Type Severity Reaction Status Date / Time amoxicillin [Amoxicillin] Allergy Unknown NAUSEA, Verified 06/12/22 11:00 vomiting, severe GI problems Active Medications: Current Medications Dextrose/Sodium Chloride (D51/2ns) 1,000 mls @ 80 mls/hr IVCONT .[id number] [facility] Melatonin (Melatonin 3 Mg Tablet) 6 mg PO BEDTIME PRN PRN Reason: Insomnia Morphine Sulfate (Morphine Sulfate 4 Mg/Ml Cartridge) 4 mg IVPUSH Q4H PRN; Protocol PRN Reason: Pain, Severe (Pain Scale 7-10) Ondansetron HCl (Ondansetron Hcl 4 Mg/2 Ml Vial) 4 mg IVPUSH Q8H PRN PRN Reason: Nausea and Vomiting Pharmacy Consult (Consult Rx Perform Med Rec) 1 each MISCELLANE ONCE PRN PRN Reason: Consult order Sodium Chloride (0.9 % Sodium Chloride Flush 3 Ml Syringe) 3 ml IVFLUSH QSHIFT [facility] Home Medications Medication Instructions Recorded Confirmed Last Taken Type cetirizine 10 mg capsule (All Day 10 mg PO DAILY PRN allergy symptoms 04/14/20 03/22/22 Unknown History Allergy (cetirizine)) nitrofurantoin macrocrystal 100 mg 100 mg PO Q12H 06/12/22 Unknown History capsule Physical Exam Vital Signs and Narrative: Vital Signs: Last Vital Signs Temp 98.1 F 06/12/22 18:59 Pulse 70 06/12/22 18:59 Resp 18 06/12/22 18:59 BP 168/77 H 06/12/22 18:59 Pulse Ox 98 06/12/22 18:59 O2 Del Method 06/12/22 18:59 BMI result Body Mass Index 25.0 Elderly female lying in bed in no distress Skin and sclera icteric Neck supple, no JVD Regular rate and rhythm, S1-S2 heard Regular breath sounds bilaterally, no wheezing or crackles appreciated Abdomen soft nontender, no guarding, no rigidity Patient is awake, alert and oriented to self, place, time and person ; no focal motor deficit Psych: Normal mood No pedal edema Results Labs CBC and Chem 7: 1206/22 17:35 06/12/22 17:35 Labs: Laboratory Results - last 24 hr 06/12/22 06/12/22 06/12/22 17:35 17:35 17:35 MCV 86.3 MCH 30.0 MCHC 34.7 RDW 15.9 Plt Count 241 MPV 10.1 Immature Gran % (Auto) 0.0 Neut % (Auto) 52.7 Lymph % (Auto) 30.2 Rogers % (Auto) 13.4 H Eos % (Auto) 2.6 Baso % (Auto) 1.1 Lymph # (Auto) 1.4 Rogers # (Auto) 0.6 Eos # (Auto) 0.1 Baso # (Auto) 0.1 Abs Immat Gran (auto) 0.00 Absolute Neuts (auto) 2.5 Absolute Nucleated RBC 0.000 Nucleated RBC % (auto) 0.0 PT INR APTT Cancelled Anion Gap 10 L Estim Creat Clear Calc 53.3 Estimated GFR > 60 Random Glucose 111 Calcium 9.6 Total Bilirubin 12.2 H AST 785 H ALT 1085 H Alkaline Phosphatase 871 H Total Protein 7.1 Albumin 4.1 COVID-19 (JODI) COVID-19 mgMEDIA 06/12/22 06/12/22 17:35 18:57 MCV MCH MCHC RDW Plt Count MPV Immature Gran % (Auto) Neut % (Auto) Lymph % (Auto) Rogers % (Auto) Eos % (Auto) Baso % (Auto) Lymph # (Auto) Rogers # (Auto) Eos # (Auto) Baso # (Auto) Abs Immat Gran (auto) Absolute Neuts (auto) Absolute Nucleated RBC Nucleated RBC % (auto) PT 10.1 INR 0.9 APTT 31.6 Anion Gap Estim Creat Clear Calc Estimated GFR Random Glucose Calcium Total Bilirubin AST ALT Alkaline Phosphatase Total Protein Albumin COVID-19 (JODI) Positive A COVID-19 Converged Access Com See Note Imaging Radiologist's Impressions: Impressions Abdomen/Pelvis CT 06/12/22 18:55 IMPRESSION: 1. Masslike density in the region of the pancreatic head measuring up to approximately 4 cm, highly suspicious for malignancy. There is associated obstruction of the common bile duct and pancreatic duct with upstream dilatation. 2. Prominent distention of the gallbladder without significant wall thickening or surrounding inflammation. 3. Colonic diverticulosis without diverticulitis. Assessment and Plan (1) Jaundice: Status: Acute (2) Essential hypertension: Status: Acute (3) Dyslipidemia: Status: Acute Plan This is a 81-year-old female with pertinent history left-sided DCIS status post surgery, radiation therapy in 2011, essential hypertension, hyperlipidemia who was sent to the emergency department by Gastroenterology for evaluation of samantha dice. #. Painless obstructive jaundice #. Imaging with pancreatic head mass -will admit and obtain MRI of the abdomen/MRCP to further delineate anatomy. Consulting Oncology and Gastroenterology, appreciate assistance. Obtaining CA 19-9 #. Essential hypertension: Continue home medications #. Mixed hyperlipidemia: Hold statin in the setting of liver injury #. COVID-19 infection: Admit with isolation precautions. No indication for Decadron or remdesivir as patient is not hypoxemic Med rec pending DVT prophylaxis: Mechanical. Defer Lovenox until surgical evaluation Cardiac diet Full code Admit as inpatient and will require two night minimum hospital stay for evaluation of pancreatic head mass. Quality Stroke Does the patient have a stroke diagnosis?: No VTE Prior VTE?: No VTE Risk Level:: Medical - moderate - high VTE Device Contraindication: N/A - Device Ordered VTE Drug Contraindication: Treatment Not Indicated
--- NOTE | 2022-06-12 20:42 | PHA.MEDREC ---
Pharmacy Consult ? Medication Reconciliation Pharmacy has completed the medication reconciliation.
[2022-06-12] MEDS: Dextrose 5 % and 0.45 % NaCl 1,000 ML 80 ML IVCONT (20:59)
[2022-06-12 21:09] VITALS: BP 169/87; PULSE 67; RESP 18; TEMP 37.1; O2SAT 98
--- NOTE | 2022-06-12 21:11 | PC.NURSE ---
Pt BP is elevated, pt reports hx of HTN. Pt has an IV RAC 20. Pt has 5% dex and NS running as order. Pt MRI docs has been fax.
[2022-06-12 21:34] LABS: Ammonia 35 umol/L (13-55)
[2022-06-12 22:15] LABS: Glucose, Whole Blood 107 mg/dL (60-115)
[2022-06-13 01:52] VITALS: BP 177/87; PULSE 66; RESP 16; TEMP 36.8; O2SAT 93
--- NOTE | 2022-06-13 02:44 | PC.NURSE ---
PT sleeping, respiration regular.
[2022-06-13 04:48] LABS: MANUAL DIFF FLAG NO
[2022-06-13 04:49] LABS: Basophils Percent Auto 0.9 % (0-2); Eosinophils Absolute Auto 0.2 X10*3/uL (0.0-0.4); Eosinophils Percent Auto 4.1 % (0-4); Hemoglobin 11.4 g/dl (12.0-16.0); Lymphocytes Absolute Auto 1.3 X10*3/uL (1.2-4.9); Lymphocytes Percent Auto 30.4 % (20-40); Mean Corpuscular HGB Conc 35.6 g/dl (31.0-35.0); Mean Corpuscular Hemoglobin 30.3 pg (27.0-33.0); Mean Corpuscular Volume 85.1 fL (80.0-98.0); Mean Platelet Volume 10.7 fL (9.4-12.3); Monocytes Absolute Auto 0.7 X10*3/uL (0.1-1.2); Monocytes Percent Auto 14.8 % (2-11); Neutrophils Absolute Auto 2.2 x10*3/uL (2.0-8.3); Neutrophils Percent Auto 49.8 % (45-73); Platelet Count 218 X10*3/uL (160-400); Red Blood Count 3.76 X10*6/uL (4.20-5.50); Red Cell Distribution Width 15.9 % (11.0-16.0); White Blood Count 4.4 X10*3/uL (4.8-10.8)
[2022-06-13 05:05] LABS: Alanine Aminotransferase 873 U/L (0-31); Albumin Level 3.5 g/dL (3.5-5.0); Alkaline Phosphatase 752 U/L (39-117); Anion Gap 12 (12-20); Aspartate Amino Transferase 606 U/L (5-31); Bilirubin Total 11.1 mg/dL (0.0-1.0); Blood Urea Nitrogen 9 mg/dL (9-16); Calcium 8.9 mg/dL (8.4-10.2); Carbon Dioxide 24 mmol/L (22-29); Chloride 109 mmol/L (96-108); Creatinine Clr Calc Pharmacy 65.1; Estimated Glomerular Filt Rate > 60; Glucose Random 125 mg/dL (60-115); Potassium 3.6 mmol/L (3.3-5.1); Sodium 141 mmol/L (135-145)
[2022-06-13 07:21] LABS: HBc Num1 0.11 S/CO (0.00-0.79); Hepatitis B Core Antibody Nonreactive (Nonreactive); Hepatitis B Surface Antigen Negative (Negative); ~HepC Num1 0.17 S/CO (0.00-0.79); ~Hepatitis B Surface Antibody NONREACTIVE (Nonreactive); ~Hepatitis C Antibody Nonreactive (Nonreactive)
[2022-06-13 08:36] VITALS: BP 143/72; PULSE 68; RESP 14; TEMP 36.8; O2SAT 93
--- NOTE | 2022-06-13 08:37 | PM.GICN ---
History of Present Illness Data of Consult Service Date: 06/13/22 Requesting physician: Morgan Morgan Primary Care Provider: Carmen Lara MD HPI Reason for consult: Panc head mass 81 y.o F with hx of left sided DCIS s/p lumpectomy 2011, XRT 2012, hypertension, osteoarthritis, who was seen in the office yesterday for elevated LFTs Evi now currently admitted for pancreatic head mass suspicious for malignancy. From office note: Pt reports that for the past 2 weeks she has not been feeling well. Has been feeling very lousy and lethargic. Last week she also started noticing dark urine which she attributed to a UTI. Has also noticed progressive weakness. Reports losing 5-8 pounds in 2 weeks (corroborated by chart). Was seen by her PCP earlier last week for a physical and noted to be grossly jaundiced on exam. Labs and US was obtained which was abnormal which prompted this urgent referral. Pt denies any distinct abdominal pain. Has intermittent nausea and decrease in appetite. Does not smoke, no etOH use. No fam hx of liver, GB or pancreatic cancer. 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 Treated [id number] including radiation therapy. ? Initial evaluation in the ER showed further bump in bilirubin to 12 with alkaline phosphatase 871, lipase of 84. She subsequently underwent CT abdomen and pelvis that showed pancreatic head mass measuring 4 cm with double duct sign. Patient was also incidentally found to be COVID-19 positive on testing, although does not have any symptoms. Her main complaint remains itching over arms. At the time of evaluation, she is NPO and awaiting an MRI. ? 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 Mother No problems noted. Sister H/O thyroid disease Surgical History Surgical History H/O colonoscopy History of cataract surgery History of eyelid surgery Hx of tonsillectomy Status post left breast lumpectomy Social History Social History Household Members: Significant Other Housing: House Do you presently have visiting nurse or other home services: No Alcohol intake: never Patient Tobacco Use Status: Never used Tobacco e-Cigarette/Vaping Use: Never Used Second Hand Smoke Exposure: No Current occupational status: retired Cognitive needs: No Hearing needs: No Vision needs: No Meds Allergies Allergy/AdvReac Type Severity Reaction Status Date / Time amoxicillin [Amoxicillin] Allergy Unknown NAUSEA, Verified 06/12/22 11:00 vomiting, severe GI problems Active Medications: Current Medications Dextrose/Sodium Chloride (D51/2ns) 1,000 mls @ 80 mls/hr IVCONT .[id number] [facility] Last Admin: 06/12/22 20:59 Dose: 80 mls/hr Melatonin (Melatonin 3 Mg Tablet) 6 mg PO BEDTIME PRN PRN Reason: Insomnia Metoprolol Succinate (Metoprolol Succinate Er 25 Mg Tab.Er.24h) 25 mg PO DAILY [facility]; Protocol Morphine Sulfate (Morphine Sulfate 4 Mg/Ml Cartridge) 4 mg IVPUSH Q4H PRN; Protocol PRN Reason: Pain, Severe (Pain Scale 7-10) Ondansetron HCl (Ondansetron Hcl 4 Mg/2 Ml Vial) 4 mg IVPUSH Q8H PRN PRN Reason: Nausea and Vomiting Pharmacy Consult (Consult Rx Perform Med Rec) 1 each MISCELLANE ONCE PRN PRN Reason: Consult order Sodium Chloride (0.9 % Sodium Chloride Flush 3 Ml Syringe) 3 ml IVFLUSH QSHIFT [facility] Last Admin: 06/13/22 02:04 Dose: Not Given Physical Exam Vital Signs: Vital Signs: Last Vital Signs Temp 98.3 F 06/13/22 01:52 Pulse 66 06/13/22 01:52 Resp 16 06/13/22 01:52 BP 177/87 H 06/13/22 01:52 Pulse Ox 93 06/13/22 01:52 O2 Del Method 06/13/22 01:52 BMI result Body Mass Index 25.0 Gen appear: No acute distress, grossly jaundiced HEENT: icterus, no cervical lymphadenopathy Chest: No overt resp distress CVS: S1/S2, regular Abd: soft, mild tenderness in epigastrium, nondistended Psych: Stable affect, answering questions appropriately Neuro: A/Ox3 noted to move all extremities spontaneously Ext: no peripheral edema Derm:? Excoriation tidwell on arms? Results Labs CBC & Chem 7: 06/13/22 04:29 06/13/22 04:29 Labs: Short CBC 06/12/22 06/13/22 Range/Units 17:35 04:29 WBC 4.7 L 4.4 L (4.8-10.8) X10*3/uL Hgb 12.3 11.4 L (12.0-16.0) g/dl Hct 35.4 L 32.0 L (37.0-47.0) % Plt Count 241 218 (160-400) X10*3/uL BMP 06/12/22 06/13/22 17:35 04:29 Sodium 140 141 Potassium 3.9 3.6 Chloride 108 109 H Carbon Dioxide 26 24 BUN 15 9 Creatinine 0.77 0.63 Calcium 9.6 8.9 D Liver Function 06/12/22 06/13/22 Range/Units 17:35 04:29 Total Bilirubin 12.2 H 11.1 H (0.0-1.0) mg/dL AST 785 H 606 H (5-31) U/L ALT 1085 H 873 H (0-31) U/L Alkaline Phosphatase 871 H 752 H (39-117) U/L Albumin 4.1 3.5 (3.5-5.0) g/dL Assessment and Plan (1) Elevated liver enzymes: Status: Acute (2) Jaundice: Status: Acute (3) Pancreatic mass: Status: Acute Plan Obstructive jaundice likely secondary to pancreatic head mass, highly suspicious for underlying malignancy. Patient is scheduled for ERCP tentatively tomorrow for biliary drainage as well as brushing/biopsy of the stricture. Findings of the CT scan were reviewed with the patient, as well as son at bedside. The procedure indication and technique was also reviewed in detail, alongside potential complications including but not limited to post-ercp pancreatitis. We also discussed that if sampling from this procedure is non-diagnostic, she may need a repeat ERCP or EUS. Patient and family verbalise understanding and are in agreement with the plan. Please keep the patient NPO after midnight for ERCP with Dr Quiñones tomorrow. Thank you for allowing me to participate in her care. Please do not hesitate to reach out for any further questions or concerns. Procedures Date of Service Date of Service: 06/13/22
[2022-06-13] MEDS: 0.9 % Sodium Chloride Flush 3 ML SYRINGE IVFLUSH ×2 (10:11→15:23)
[2022-06-13] MEDS: Metoprolol Succinate ER 25 MG TAB.ER.24H PO (10:11)
--- NOTE | 2022-06-13 11:26 | HO.PM.IMPN ---
Subjective Subjective Date of Service: 06/13/22 Interval History: cc: prutitis, jaundice interval history:no changes Cardiovascular Cardiovascular: Reports no additional cardiovascular complaints Respiratory Respiratory: Reports no additional respiratory complaints Physical Exam Vital Signs: Vital Signs: Last Vital Signs Temp 98.3 F 06/13/22 08:36 Pulse 68 06/13/22 08:36 Resp 14 06/13/22 08:36 BP 143/72 H 06/13/22 08:36 Pulse Ox 93 06/13/22 08:36 O2 Del Method 06/13/22 08:36 BMI result Body Mass Index 25.0 General: AO X 3, no acute distress, jaundice Resp: CTA bilateral, no accessory muscles used CVS: S1,S2,RRR GI: soft, non tender, non distended Neuro: motor grossly intact, alert Psych: appropriate affect, appropriate insight Objective Data Active Medications Dextrose/Sodium Chloride (D51/2ns) 1,000 mls @ 80 mls/hr IVCONT .[id number] [facility] Last Admin: 06/12/22 20:59 Dose: 80 mls/hr Documented By: VELIA Melatonin (Melatonin 3 Mg Tablet) 6 mg PO BEDTIME PRN PRN Reason: Insomnia Metoprolol Succinate (Metoprolol Succinate Er 25 Mg Tab.Er.24h) 25 mg PO DAILY [facility]; Protocol Last Admin: 06/13/22 10:11 Dose: 25 mg Documented By: EWELINA Morphine Sulfate (Morphine Sulfate 4 Mg/Ml Cartridge) 4 mg IVPUSH Q4H PRN; Protocol PRN Reason: Pain, Severe (Pain Scale 7-10) Ondansetron HCl (Ondansetron Hcl 4 Mg/2 Ml Vial) 4 mg IVPUSH Q8H PRN PRN Reason: Nausea and Vomiting Pharmacy Consult (Consult Rx Perform Med Rec) 1 each MISCELLANE ONCE PRN PRN Reason: Consult order Sodium Chloride (0.9 % Sodium Chloride Flush 3 Ml Syringe) 3 ml IVFLUSH QSHIFT [facility] Last Admin: 06/13/22 10:11 Dose: 3 ml Documented By: EWELINA Labs CBC & Chem 7: 06/13/22 04:29 06/13/22 04:29 Labs: Laboratory Results - last 24 hr 06/12/22 06/12/22 06/12/22 17:35 17:35 17:35 MCV 86.3 MCH 30.0 MCHC 34.7 RDW 15.9 Plt Count 241 MPV 10.1 Immature Gran % (Auto) 0.0 Neut % (Auto) 52.7 Lymph % (Auto) 30.2 [place] % (Auto) 13.4 H Eos % (Auto) 2.6 Baso % (Auto) 1.1 Lymph # (Auto) 1.4 [place] # (Auto) 0.6 Eos # (Auto) 0.1 Baso # (Auto) 0.1 Abs Immat Gran (auto) 0.00 Absolute Neuts (auto) 2.5 Absolute Nucleated RBC 0.000 Nucleated RBC % (auto) 0.0 PT INR APTT Cancelled Anion Gap 10 L Estim Creat Clear Calc 53.3 Estimated GFR > 60 POC Glucose Random Glucose 111 Calcium 9.6 Total Bilirubin 12.2 H AST 785 H ALT 1085 H Alkaline Phosphatase 871 H Ammonia Total Protein 7.1 Albumin 4.1 COVID-19 (JODI) COVID-19 Clin Com Hep Bs Antigen Hep Bs Antibody Hep B Core Total Ab Hepatitis C Ab (EIA) 06/12/22 06/12/22 06/12/22 17:35 17:35 18:57 MCV MCH MCHC RDW Plt Count MPV Immature Gran % (Auto) Neut % (Auto) Lymph % (Auto) [place] % (Auto) Eos % (Auto) Baso % (Auto) Lymph # (Auto) [place] # (Auto) Eos # (Auto) Baso # (Auto) Abs Immat Gran (auto) Absolute Neuts (auto) Absolute Nucleated RBC Nucleated RBC % (auto) PT 10.1 INR 0.9 APTT 31.6 Anion Gap Estim Creat Clear Calc Estimated GFR POC Glucose Random Glucose Calcium Total Bilirubin AST ALT Alkaline Phosphatase Ammonia Total Protein Albumin COVID-19 (JODI) Positive A COVID-19 Clin Com See Note Hep Bs Antigen Negative Hep Bs Antibody NONREACTIVE Hep B Core Total Ab Nonreactive Hepatitis C Ab (EIA) Nonreactive 06/12/22 06/12/22 06/13/22 21:20 22:10 04:29 MCV 85.1 MCH 30.3 MCHC 35.6 H RDW 15.9 Plt Count 218 MPV 10.7 Immature Gran % (Auto) 0.0 Neut % (Auto) 49.8 Lymph % (Auto) 30.4 [place] % (Auto) 14.8 H Eos % (Auto) 4.1 H Baso % (Auto) 0.9 Lymph # (Auto) 1.3 [place] # (Auto) 0.7 Eos # (Auto) 0.2 Baso # (Auto) 0.0 Abs Immat Gran (auto) 0.00 Absolute Neuts (auto) 2.2 Absolute Nucleated RBC 0.000 Nucleated RBC % (auto) 0.0 PT INR APTT Anion Gap Estim Creat Clear Calc Estimated GFR POC Glucose 107 Random Glucose Calcium Total Bilirubin AST ALT Alkaline Phosphatase Ammonia 35 Total Protein Albumin COVID-19 (JODI) COVID-19 Clin Com Hep Bs Antigen Hep Bs Antibody Hep B Core Total Ab Hepatitis C Ab (EIA) 06/13/22 04:29 MCV MCH MCHC RDW Plt Count MPV Immature Gran % (Auto) Neut % (Auto) Lymph % (Auto) [place] % (Auto) Eos % (Auto) Baso % (Auto) Lymph # (Auto) [place] # (Auto) Eos # (Auto) Baso # (Auto) Abs Immat Gran (auto) Absolute Neuts (auto) Absolute Nucleated RBC Nucleated RBC % (auto) PT INR APTT Anion Gap 12 Estim Creat Clear Calc 65.1 Estimated GFR > 60 POC Glucose Random Glucose 125 H Calcium 8.9 D Total Bilirubin 11.1 H AST 606 H ALT 873 H Alkaline Phosphatase 752 H Ammonia Total Protein 6.0 L Albumin 3.5 COVID-19 (JODI) COVID-19 Clin Com Hep Bs Antigen Hep Bs Antibody Hep B Core Total Ab Hepatitis C Ab (EIA) Assessment and Plan (1) Pancreatic cancer: Status: Acute (2) Obstructive jaundice: Status: Acute Plan 81-year-old female with pertinent history left-sided DCIS status post surgery, radiation therapy in 2011, essential hypertension, hyperlipidemia who was sent to the emergency department by Gastroenterology for evaluation of jaundice. Painless obstructive jaundice Imaging with pancreatic head mass follow up mri plan for ercp 06/14/22 HTN metoprolol COVID-19 infection asymptomatic DVT prophylaxis:? Mechanical.? due to pending ercp Full code reason for continued hospitalization: plan for relief of obstruction Quality Stroke Does the patient have a stroke diagnosis?: No VTE Prior VTE?: No VTE Risk Level:: Medical - moderate - high VTE Device Contraindication: N/A - Device Ordered VTE Drug Contraindication: Treatment Not Indicated
[2022-06-13 14:30] VITALS: BP 144/75; PULSE 87; RESP 18; TEMP 36.9; O2SAT 96
[2022-06-13] MEDS: Dextrose 5 % and 0.45 % NaCl 1,000 ML 80 ML IVCONT (15:22)
[2022-06-13 19:16] VITALS: BP 160/74; PULSE 78; RESP 16; TEMP 37.1; O2SAT 93
--- NOTE | 2022-06-13 19:47 | PM.HEMONCCN ---
Subjective - Subjective Chief complaint: Consult for: Pancreatic Mass. Patient: known to practice within the last 3 years Consult date: 06/13/22 Requesting Physician: Cathy. Primary Care Provider: Carmen Lara MD Medical Summary: DIAGNOSIS: PANCREATIC MASS. HPI - Consult Narrative Reason for consult: Consult for:Pancreatic Mass. Narrative: Kelli Lopez is a pleasant 81 year old lady, presented from GI office, for obstructed jaundice. over last couple of weeks, she has felt weak and lethargic. She noted dark colored urine. No belly pain but has had nausea. Has had anorexia and 8 pounds weight loss. LFTs: 12/871/785/1085. Lipase:84. Cat scan of abdomen: Mass like density in the pancreatic head, 4 cm, suspiscious for malignancy. Obstruction of CBD and pancreatic duct. Gallbladder distension. Diverticulosis. 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 Mother No problems noted. Sister H/O thyroid disease Review of Systems - Constitutional Reports system reviewed and no additional complaints, except as documented, Reports anorexia, Reports daytime sleepiness, Reports fatigue, Reports lack of energy, Reports malaise, Reports weight loss - Eyes Reports system reviewed and no additional complaints, except as documented - ENT Reports system reviewed and no additional complaints, except as documented - Cardiovascular Reports system reviewed and no additional complaints, except as documented - Respiratory Reports no additional respiratory complaints - Gastrointestinal Reports system reviewed and no additional complaints, except as documented, Reports bloating, Reports change in stools, Reports dyspepsia, Reports nausea, Denies abdominal pain - Genitourinary Reports no additional female genitourinary complaints - Musculoskeletal Reports system reviewed and no additional complaints, except as documented - Integumentary/Breasts Skin/Breast: Reports no additional skin complaints - Neurologic Reports system reviewed and no additional complaints, except as documented - Psychiatric Reports system reviewed and no additional complaints, except as documented - Endocrine Reports no additional endocrine complaints - Hematologic/Lymphatic Reports system reviewed and no additional complaints, except as documented - Allergic/Immunologic Reports system reviewed and no additional complaints, except as documented Oncology Screenings - ECOG Performance Status ECOG Performance Status: 2 [facility] Medical History: Medical History (Last Reviewed 06/13/22 @ 15:45 by Billie Lawson MD) Ductal carcinoma in situ of left breast Dyslipidemia Elevated liver enzymes Essential hypertension H/O cyst of breast Hip pain, left Jaundice Menopause 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 Mother No problems noted. Sister H/O thyroid disease Surgical History: Surgical History (Last Reviewed 06/13/22 @ 15:45 by Billie Lawson MD) H/O colonoscopy History of cataract surgery History of eyelid surgery Hx of tonsillectomy Status post left breast lumpectomy Social History: Social History (Last Reviewed 06/13/22 @ 15:45 by Billie Lawson MD) Living Situation History: Household Members: Significant Other Housing: House Do you presently have visiting nurse or other home services: No Tobacco History: Patient Tobacco Use Status: Never used Tobacco e-Cigarette/Vaping Use: Never Used Second Hand Smoke Exposure: No Occupation Assessmet: service: No Current occupational status: retired Home Medications and Allergies Current Medications: Current Medications Dextrose/Sodium Chloride (D51/2ns) 1,000 mls @ 80 mls/hr IVCONT .[id number] [facility] Last Infusion: 06/13/22 18:27 Dose: 80 mls/hr Melatonin (Melatonin 3 Mg Tablet) 6 mg PO BEDTIME PRN PRN Reason: Insomnia Metoprolol Succinate (Metoprolol Succinate Er 25 Mg Tab.Er.24h) 25 mg PO DAILY [facility]; Protocol Last Admin: 06/13/22 10:11 Dose: 25 mg Morphine Sulfate (Morphine Sulfate 4 Mg/Ml Cartridge) 4 mg IVPUSH Q4H PRN; Protocol PRN Reason: Pain, Severe (Pain Scale 7-10) Ondansetron HCl (Ondansetron Hcl 4 Mg/2 Ml Vial) 4 mg IVPUSH Q8H PRN PRN Reason: Nausea and Vomiting Pharmacy Consult (Consult Rx Perform Med Rec) 1 each MISCELLANE ONCE PRN PRN Reason: Consult order Sodium Chloride (0.9 % Sodium Chloride Flush 3 Ml Syringe) [facility] Last Admin: 06/13/22 15:23 Dose: 3 ml Allergies Allergy/AdvReac Type Severity Reaction Status Date / Time amoxicillin [Amoxicillin] Allergy Unknown NAUSEA, Verified 06/12/22 11:00 vomiting, severe GI problems Physical Exam Vital signs: Vital Signs Temp 98.7 F 06/13/22 19:16 Pulse 78 06/13/22 19:16 Resp 16 06/13/22 19:16 BP 160/74 H 06/13/22 19:16 Pulse Ox 93 06/13/22 19:16 O2 Del Method 06/13/22 19:16 Intake & Output 06/13/22 06/13/22 06/14/22 06:59 18:59 06:59 Intake Total 450 / 450 1150.667 / 1150.667 Balance 450 / 450 1150.667 / 1150.667 Intake: Intake, Oral Amount 450 / 450 Intake, IV Amount 1150.667 / 1150.667 Dextrose 5 % and 0.45 % NaCl 1, 1150.667 / 1150.667 000 ml @ 80 mls/hr IVCONT . [id number] [facility] Rx#:[id number] Other: Number of Unmeasured Voids 2 Urine Bedside Commode Last Bowel Movement 06/13/22 Weight 68.039 kg - Constitutional Present: moderate distress - Routine HEENT Exam Head: Present: normal inspection Eye: Present: normal appearance ENT: Present: mucous membranes moist - Routine Neck Exam Present: supple - Routine Respiratory Exam Present: CTAB - Routine Cardiovascular Exam Cardiovascular: Present: RRR, S1 - Routine Abdominal Exam Present: normal bowel sounds, tenderness - Routine Extremities Exam Present: nontender Hem/Onc Consult Result - Labs CBC & Chem 7: 06/17/22 07:29 06/17/22 07:29 Labs: Short CBC 06/13/22 Range/Units 04:29 WBC 4.4 L (4.8-10.8) X10*3/uL Hgb 11.4 L (12.0-16.0) g/dl Hct 32.0 L (37.0-47.0) % Plt Count 218 (160-400) X10*3/uL BMP 06/13/22 04:29 Sodium 141 Potassium 3.6 Chloride 109 H Carbon Dioxide 24 BUN 9 Creatinine 0.63 Calcium 8.9 D Liver Function 06/13/22 Range/Units 04:29 Total Bilirubin 11.1 H (0.0-1.0) mg/dL AST 606 H (5-31) U/L ALT 873 H (0-31) U/L Alkaline Phosphatase 752 H (39-117) U/L Albumin 3.5 (3.5-5.0) g/dL Assessment and Plan Patient Active problem list reviewed?: Yes (1) Pancreatic cancer Status: Acute Assessment and plan: 81 year old lady, with H/O DCIS of the breast, now presents with anorexia and weight loss, with Obstructive Jaundice. Noted to have a mass in pancreatic head. PLAN: Had MRCP done. Results are: 1. Abnormal appearance of the pancreatic duct. There is change in signal expanding the pancreatic duct at the pancreatic neck. There is suggestion of mild enhancement in this region. This is suggestive of a mass within the duct. The adjacent pancreatic head tissue is somewhat heterogeneous and could represent additional mass. 2. The common bile duct is not seen beyond its mid course, possibly occluded by external compression versus intraductal expansion of mass. There is diffuse intrahepatic and extrahepatic biliary ductal dilatation. Distended gallbladder with layering sludge. 3. Hepatic hemangioma. She will need ERCP and stent placement, to facilitate biliary drainage. Will get brushings to obtain tissue diagnosis. Then recommend treatment, most likely involving [place]/Abraxane based chemotherapy. Ca 19/9 is: <3. Thanks, Addendum: ERCP was unsuccessful. She underwent PTCA, by IR. LFTs came down: 7.9/516/197/377. CC: Renny. (2) DCIS (ductal carcinoma in situ) Status: Acute Assessment and plan: 81 year-old lady, with history of left breast DCIS with a minute focus of microinvasion. Status post lumpectomy, March 2012. ER positive [place] positive. Completed radiation in July 2012. She was on Tamoxifen, started April 2012. Got Switched to Raloxifene June 2013. She stopped taking it in December of 2013. She is clinically doing well, from that perspective. She had a bone density March 2018 which revealed osteopenia with the lowest T score of -2.4. She had her mammogram on April 12,which was benign. PLAN: Plan is to continue to follow her along. In regards to the osteopenia I advised her to follow up with her primary, for further suggestion. She was advised to continue on calcium and vitamin D supplements, for now. Thank you, Copy to: Dr. Carmen Lara. - Time Spent With Patient Time Spent with Patient (in minutes): 30
[2022-06-13 23:35] VITALS: BP 171/83; PULSE 72; RESP 15; TEMP 36.6; O2SAT 96
[2022-06-14] VITALS (9 sets, daily range): BP systolic 125–170; BP diastolic 61–85; PULSE 61–85; RESP 14–20; TEMP 36.1–37.1; O2SAT 93–100
[2022-06-14] MEDS: Dextrose 5 % and 0.45 % NaCl 1,000 ML 80 ML IVCONT (06:15)
[2022-06-14 06:23] LABS: Hematocrit 32.1 % (37.0-47.0); Hemoglobin 11.4 g/dl (12.0-16.0); Mean Corpuscular HGB Conc 35.5 g/dl (31.0-35.0); Mean Corpuscular Hemoglobin 29.8 pg (27.0-33.0); Mean Corpuscular Volume 83.8 fL (80.0-98.0); Mean Platelet Volume 10.5 fL (9.4-12.3); Platelet Count 226 X10*3/uL (160-400); Red Blood Count 3.83 X10*6/uL (4.20-5.50); White Blood Count 4.7 X10*3/uL (4.8-10.8)
[2022-06-14 06:38] LABS: Alanine Aminotransferase 746 U/L (0-31); Albumin Level 3.3 g/dL (3.5-5.0); Alkaline Phosphatase 696 U/L (39-117); Anion Gap 11 (12-20); Aspartate Amino Transferase 467 U/L (5-31); Bilirubin Direct 5.4 mg/dL (0.0-0.5); Blood Urea Nitrogen 9 mg/dL (9-16); Calcium 8.7 mg/dL (8.4-10.2); Carbon Dioxide 23 mmol/L (22-29); Chloride 108 mmol/L (96-108); Creatinine Clr Calc Pharmacy 60.4; Estimated Glomerular Filt Rate > 60; Glucose Fasting 126 mg/dL (60-99); Potassium 3.4 mmol/L (3.3-5.1); Sodium 139 mmol/L (135-145); Total Protein 5.7 g/dL (6.5-8.0)
[2022-06-14 08:59] LABS: Carbohydrate Antigen 19-9 <3 U/mL (<34)
--- NOTE | 2022-06-14 09:06 | MHC.CM.PN ---
IMM 06/13/22 Female Lives with DX Pancreatic Mass. She is independent with all functional mobility. VAX x2 boosted x2. A HCP has been documented. She had a HCP with her named as the HCP. A new document has been created. Her 3 children have been added as alternates. DP Home self-care with out pt chemo. Family will provide transportation home.
[2022-06-14] MEDS: Metoprolol Succinate ER 25 MG TAB.ER.24H PO (09:38)
--- NOTE | 2022-06-14 10:20 | HO.PM.IMPN ---
Subjective Subjective Date of Service: 06/14/22 Interval History: cc: prutitis, jaundice interval history:no changes Cardiovascular Cardiovascular: Reports no additional cardiovascular complaints Respiratory Respiratory: Reports no additional respiratory complaints Physical Exam Vital Signs: Vital Signs: Last Vital Signs Temp 98.8 F 06/14/22 07:40 Pulse 73 06/14/22 07:40 Resp 16 06/14/22 07:40 BP 151/70 H 06/14/22 07:40 Pulse Ox 95 06/14/22 07:40 O2 Del Method 06/14/22 07:40 BMI result Body Mass Index 25.0 General: AO X 3, no acute distress, jaundice Resp: CTA bilateral, no accessory muscles used CVS: S1,S2,RRR GI: soft, non tender, non distended Neuro: motor grossly intact, alert Psych: appropriate affect, appropriate insight Objective Data Active Medications Dextrose/Sodium Chloride (D51/2ns) 1,000 mls @ 80 mls/hr IVCONT .[id number] [facility] Last Admin: 06/14/22 06:15 Dose: 80 mls/hr Documented By: HANY Melatonin (Melatonin 3 Mg Tablet) 6 mg PO BEDTIME PRN PRN Reason: Insomnia Metoprolol Succinate (Metoprolol Succinate Er 25 Mg Tab.Er.24h) 25 mg PO DAILY [facility]; Protocol Last Admin: 06/14/22 09:38 Dose: 25 mg Documented By: ASHLIE Morphine Sulfate (Morphine Sulfate 4 Mg/Ml Cartridge) 4 mg IVPUSH Q4H PRN; Protocol PRN Reason: Pain, Severe (Pain Scale 7-10) Ondansetron HCl (Ondansetron Hcl 4 Mg/2 Ml Vial) 4 mg IVPUSH Q8H PRN PRN Reason: Nausea and Vomiting Pharmacy Consult (Consult Rx Perform Med Rec) 1 each MISCELLANE ONCE PRN PRN Reason: Consult order Sodium Chloride (0.9 % Sodium Chloride Flush 3 Ml Syringe) 3 ml IVFLUSH QSHIFT [facility] Last Admin: 06/14/22 09:38 Dose: Not Given Documented By: ASHLIE Non-Admin Reason: IV Running Labs CBC & Chem 7: 06/14/22 06:08 06/14/22 06:08 Labs: Laboratory Results - last 24 hr 06/12/22 06/14/22 06/14/22 21:20 06:08 06:08 MCV 83.8 MCH 29.8 MCHC 35.5 H RDW 16.0 Plt Count 226 MPV 10.5 Absolute Nucleated RBC 0.000 Nucleated RBC % (auto) 0.0 Anion Gap 11 L Estim Creat Clear Calc 60.4 Estimated GFR > 60 Fasting Glucose 126 H Calcium 8.7 Total Bilirubin 9.0 H Direct Bilirubin 5.4 H AST 467 H ALT 746 H Alkaline Phosphatase 696 H Total Protein 5.7 L Albumin 3.3 L CA 19-9 Antigen <3 Assessment and Plan (1) Pancreatic cancer: Status: Acute (2) Obstructive jaundice: Status: Acute Plan 81-year-old female with pertinent history left-sided DCIS status post surgery, radiation therapy in 2011, essential hypertension, hyperlipidemia who was sent to the emergency department by Gastroenterology for evaluation of jaundice. Painless obstructive jaundice Imaging with pancreatic head mass follow up mri plan for ercp today, 06/14/22 HTN metoprolol COVID-19 infection asymptomatic DVT prophylaxis:? Mechanical.? due to pending ercp Full code reason for continued hospitalization: plan for relief of obstruction Quality Stroke Does the patient have a stroke diagnosis?: No VTE Prior VTE?: No VTE Risk Level:: Medical - moderate - high VTE Device Contraindication: N/A - Device Ordered VTE Drug Contraindication: Treatment Not Indicated
--- NOTE | 2022-06-14 13:28 | MHC.SHP ---
Pre-Procedural Eval Section A Date of Service: 06/14/22 The patient is an INPATIENT: Yes The History & Physical has been completed within 30 days and I have reviewed it.: Yes Section B Chief Complaint: jaundice Allergies: Allergies Allergy/AdvReac Type Severity Reaction Status Date / Time amoxicillin [Amoxicillin] Allergy Unknown NAUSEA, Verified 06/12/22 11:00 vomiting, severe GI problems Plan Diagnosis/Plan: Unchanged I have reviewed the history and physical and performed a pertinent physical examination on my patient. No changes have occurred unless specified.
--- NOTE | 2022-06-14 14:04 | HO.ANESPROP2 ---
HPI - Anesthesia Eval Consult details Narrative: 81 F for ERCP . Pancreatic Mass, jaundice PMFSH Active Problems Active Problems: All Active Problems (Updated 06/14/22 @ 10:14 by Wilman Sheets MD) DCIS (ductal carcinoma in situ) (Acute) Pancreatic mass (Acute) Pancreatic cancer (Acute) Obstructive jaundice (Acute) UTI (urinary tract infection) (Acute) Jaundice (Acute) Elevated liver enzymes (Acute) Right upper quadrant abdominal pain (Acute) Osteoarthritis of both sacroiliac joints (Acute) Osteoarthritis of hips, bilateral (Acute) Hip pain, left (Acute) Osteopenia of multiple sites (Acute) Vitamin D deficiency, unspecified (Acute) Menopause (Acute) Dyslipidemia (Acute) Essential hypertension (Acute) Past Medical History Medical History Ductal carcinoma in situ of left breast Dyslipidemia Elevated liver enzymes Essential hypertension H/O cyst of breast Hip pain, left Jaundice Menopause 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 Mother No problems noted. Sister H/O thyroid disease Family history of problems with anesthesia: No Surgical History Surgical History H/O colonoscopy History of cataract surgery History of eyelid surgery Hx of tonsillectomy Status post left breast lumpectomy History of Problems with Anesthesia: No Social History Social History Household Members: Significant Other Housing: House Do you presently have visiting nurse or other home services: No Alcohol intake: never Patient Tobacco Use Status: Never used Tobacco e-Cigarette/Vaping Use: Never Used Second Hand Smoke Exposure: No service: No Current occupational status: retired Cognitive needs: No Hearing needs: No Vision needs: No Meds Allergies Allergy/AdvReac Type Severity Reaction Status Date / Time amoxicillin [Amoxicillin] Allergy Unknown NAUSEA, Verified 06/12/22 11:00 vomiting, severe GI problems Active Medications: Current Medications Dextrose/Sodium Chloride (D51/2ns) 1,000 mls @ 80 mls/hr IVCONT .[id number] [facility] Last Admin: 06/14/22 06:15 Dose: 80 mls/hr Melatonin (Melatonin 3 Mg Tablet) 6 mg PO BEDTIME PRN PRN Reason: Insomnia Metoprolol Succinate (Metoprolol Succinate Er 25 Mg Tab.Er.24h) 25 mg PO DAILY [facility]; Protocol Last Admin: 06/14/22 09:38 Dose: 25 mg Morphine Sulfate (Morphine Sulfate 4 Mg/Ml Cartridge) 4 mg IVPUSH Q4H PRN; Protocol PRN Reason: Pain, Severe (Pain Scale 7-10) Ondansetron HCl (Ondansetron Hcl 4 Mg/2 Ml Vial) 4 mg IVPUSH Q8H PRN PRN Reason: Nausea and Vomiting Pharmacy Consult (Consult Rx Perform Med Rec) 1 each MISCELLANE ONCE PRN PRN Reason: Consult order Sodium Chloride (0.9 % Sodium Chloride Flush 3 Ml Syringe) 3 ml IVFLUSH QSHIFT [facility] Last Admin: 06/14/22 09:38 Dose: Not Given Exam Exam Date and Time: June 14, 2022 1404 Height,Weight and Vital Signs: Height 5 ft 5 in Weight 68.039 kg Last Vital Signs Temp 98.6 F 06/14/22 11:40 Pulse 85 06/14/22 11:40 Resp 16 06/14/22 11:40 BP 131/71 06/14/22 11:40 Pulse Ox 95 06/14/22 11:40 O2 Del Method 06/14/22 11:40 Pertinent Lab Results Pertinent Lab Results: Laboratory Tests 06/12/22 06/12/22 06/12/22 17:35 17:35 17:35 WBC 4.7 L RBC 4.10 L Hgb 12.3 Hct 35.4 L MCV 86.3 MCH 30.0 MCHC 34.7 RDW 15.9 Plt Count 241 MPV 10.1 Immature Gran % (Auto) 0.0 Neut % (Auto) 52.7 Lymph % (Auto) 30.2 [place] % (Auto) 13.4 H Eos % (Auto) 2.6 Baso % (Auto) 1.1 Lymph # (Auto) 1.4 [place] # (Auto) 0.6 Eos # (Auto) 0.1 Baso # (Auto) 0.1 Abs Immat Gran (auto) 0.00 Absolute Neuts (auto) 2.5 Absolute Nucleated RBC 0.000 Nucleated RBC % (auto) 0.0 PT INR APTT Cancelled Sodium 140 Potassium 3.9 Chloride 108 Carbon Dioxide 26 Anion Gap 10 L BUN 15 Creatinine 0.77 Estim Creat Clear Calc 53.3 Estimated GFR > 60 POC Glucose Random Glucose 111 Fasting Glucose Calcium 9.6 Total Bilirubin 12.2 H Direct Bilirubin AST 785 H ALT 1085 H Alkaline Phosphatase 871 H Ammonia Total Protein 7.1 Albumin 4.1 CA 19-9 Antigen COVID-19 (JODI) COVID-19 Clin Com Hep Bs Antigen Hep Bs Antibody Hep B Core Total Ab Hepatitis C Ab (EIA) Blood Type Antibody Screen 06/12/22 06/12/22 06/12/22 17:35 17:35 18:57 WBC RBC Hgb Hct MCV MCH MCHC RDW Plt Count MPV Immature Gran % (Auto) Neut % (Auto) Lymph % (Auto) [place] % (Auto) Eos % (Auto) Baso % (Auto) Lymph # (Auto) [place] # (Auto) Eos # (Auto) Baso # (Auto) Abs Immat Gran (auto) Absolute Neuts (auto) Absolute Nucleated RBC Nucleated RBC % (auto) PT 10.1 INR 0.9 APTT 31.6 Sodium Potassium Chloride Carbon Dioxide Anion Gap BUN Creatinine Estim Creat Clear Calc Estimated GFR POC Glucose Random Glucose Fasting Glucose Calcium Total Bilirubin Direct Bilirubin AST ALT Alkaline Phosphatase Ammonia Total Protein Albumin CA 19-9 Antigen COVID-19 (JODI) Positive A COVID-19 Clin Com See Note Hep Bs Antigen Negative Hep Bs Antibody NONREACTIVE Hep B Core Total Ab Nonreactive Hepatitis C Ab (EIA) Nonreactive Blood Type Antibody Screen 06/12/22 06/12/22 06/12/22 21:20 21:20 22:10 WBC RBC Hgb Hct MCV MCH MCHC RDW Plt Count MPV Immature Gran % (Auto) Neut % (Auto) Lymph % (Auto) [place] % (Auto) Eos % (Auto) Baso % (Auto) Lymph # (Auto) [place] # (Auto) Eos # (Auto) Baso # (Auto) Abs Immat Gran (auto) Absolute Neuts (auto) Absolute Nucleated RBC Nucleated RBC % (auto) PT INR APTT Sodium Potassium Chloride Carbon Dioxide Anion Gap BUN Creatinine Estim Creat Clear Calc Estimated GFR POC Glucose 107 Random Glucose Fasting Glucose Calcium Total Bilirubin Direct Bilirubin AST ALT Alkaline Phosphatase Ammonia 35 Total Protein Albumin CA 19-9 Antigen <3 COVID-19 (JODI) COVID-19 Clin Com Hep Bs Antigen Hep Bs Antibody Hep B Core Total Ab Hepatitis C Ab (EIA) Blood Type Antibody Screen 06/13/22 06/13/22 06/14/22 04:29 04:29 06:08 WBC 4.4 L 4.7 L RBC 3.76 L 3.83 L Hgb 11.4 L 11.4 L Hct 32.0 L 32.1 L MCV 85.1 83.8 MCH 30.3 29.8 MCHC 35.6 H 35.5 H RDW 15.9 16.0 Plt Count 218 226 MPV 10.7 10.5 Immature Gran % (Auto) 0.0 Neut % (Auto) 49.8 Lymph % (Auto) 30.4 [place] % (Auto) 14.8 H Eos % (Auto) 4.1 H Baso % (Auto) 0.9 Lymph # (Auto) 1.3 [place] # (Auto) 0.7 Eos # (Auto) 0.2 Baso # (Auto) 0.0 Abs Immat Gran (auto) 0.00 Absolute Neuts (auto) 2.2 Absolute Nucleated RBC 0.000 0.000 Nucleated RBC % (auto) 0.0 0.0 PT INR APTT Sodium 141 Potassium 3.6 Chloride 109 H Carbon Dioxide 24 Anion Gap 12 BUN 9 Creatinine 0.63 Estim Creat Clear Calc 65.1 Estimated GFR > 60 POC Glucose Random Glucose 125 H Fasting Glucose Calcium 8.9 D Total Bilirubin 11.1 H Direct Bilirubin AST 606 H ALT 873 H Alkaline Phosphatase 752 H Ammonia Total Protein 6.0 L Albumin 3.5 CA 19-9 Antigen COVID-19 (JODI) COVID-19 Clin Com Hep Bs Antigen Hep Bs Antibody Hep B Core Total Ab Hepatitis C Ab (EIA) Blood Type Antibody Screen 06/14/22 06/14/22 06:08 12:14 WBC RBC Hgb Hct MCV MCH MCHC RDW Plt Count MPV Immature Gran % (Auto) Neut % (Auto) Lymph % (Auto) [place] % (Auto) Eos % (Auto) Baso % (Auto) Lymph # (Auto) [place] # (Auto) Eos # (Auto) Baso # (Auto) Abs Immat Gran (auto) Absolute Neuts (auto) Absolute Nucleated RBC Nucleated RBC % (auto) PT INR APTT Sodium 139 Potassium 3.4 Chloride 108 Carbon Dioxide 23 Anion Gap 11 L BUN 9 Creatinine 0.68 Estim Creat Clear Calc 60.4 Estimated GFR > 60 POC Glucose Random Glucose Fasting Glucose 126 H Calcium 8.7 Total Bilirubin 9.0 H Direct Bilirubin 5.4 H AST 467 H ALT 746 H Alkaline Phosphatase 696 H Ammonia Total Protein 5.7 L Albumin 3.3 L CA 19-9 Antigen COVID-19 ([facility]ODI) COVID-19 Clin Com Hep Bs Antigen Hep Bs Antibody Hep B Core Total Ab Hepatitis C Ab (EIA) Blood Type A Positive Antibody Screen NEGATIVE Airway Mallampati Class: III TM Dist: >3cm Neck ROM: Full Loose/Missing/Broken Teeth: Yes (Poor dentition globally ) Heart: S1,S2 Lungs: b/l breath sounds Assessment and Plan Assessment Anesthesia Assessment: Anesthesia Plan Discussed and Chart Reviewed Final Anesthetic Review Family History of Problems with Anesthesia: No History of Problems with Anesthesia: No NPO: Yes ASA Class: III (urgent ) Final Preanesthetic Review: Meds/Allgs Chart Reviewed, Consent Obtained/Reviewed and Anes Risks/Benef Reviewed Patient Risk: High Procedure Risk: Intermediate Anesthetic Plan Anesthetic Plan: GA Disposition: Inp. Admit - Standard Bed
--- NOTE | 2022-06-14 16:04 | W.PM.OPN ---
Operative Note Operative Note Date of Service: 06/14/22 Narrative: Description: Endoscopic retrograde cholangiopancreatography (ERCP) with brush cytology and biopsy. PROCEDURE: Endoscopic retrograde cholangiopancreatography with brush cytology INDICATION FOR THE PROCEDURE: Patient with a history of obstructive jundice and pancreatic head mass MEDICATIONS: General anesthesia, rectal indomethacin 100 mg, cefotetan 1 g IV The risks of the procedure were made aware to the patient and consisted of medication reaction, bleeding, perforation, aspiration, and post ERCP pancreatitis. A single use duodenoscope was used. DESCRIPTION OF PROCEDURE: After informed consent and appropriate sedation, the duodenoscope was inserted into the oropharynx, down the esophagus, and into the stomach. The scope was then advanced through the pylorus to the ampulla. The ampulla had a normal appearance. The papilla was approached with the tome. In spite of various angulations the PD was repeatedly entered using the wire guided technique. A chadwick precut was performed but still the wire kept entering the PD. A 3 Frx 4 cm PD stent was also placed but this did not help either. Brushings were taken of the PD and the procedure was then terminated due to failure to cannulate the biliary duct. There was some minor oozing which had ceased by the end of the procedure. The stomach was then decompressed and the endoscope was withdrawn. FINDINGS: 1. Failure to cannulate the biliary duct RECOMMENDATIONS: 1. NPO except ice chips for next 4-6 hrs then clears as tolerated, can advance diet tomorrow if feels well 2. will discuss with Dr Lawson about transfer for ERCP at tertiary center with EUs if needed vs PTC drainage in the short term.
[2022-06-15] MEDS: Lactated Ringers 1,000 ML 100 ML IVCONT ×3 (01:27→23:35)
[2022-06-15] MEDS: 0.9 % Sodium Chloride Flush 3 ML SYRINGE IVFLUSH ×3 (01:28→23:34)
[2022-06-15 02:50] VITALS: BP 128/61; PULSE 65; RESP 16; TEMP 36.9; O2SAT 94
[2022-06-15 07:18] LABS: Alanine Aminotransferase 576 U/L (0-31); Albumin Level 3.1 g/dL (3.5-5.0); Alkaline Phosphatase 651 U/L (39-117); Anion Gap 11 (12-20); Aspartate Amino Transferase 340 U/L (5-31); Bilirubin Direct 5.2 mg/dL (0.0-0.5); Blood Urea Nitrogen 12 mg/dL (9-16); C Reactive Protein 2.45 mg/dL (< or = 0.50); Calcium 8.8 mg/dL (8.4-10.2); Carbon Dioxide 24 mmol/L (22-29); Chloride 108 mmol/L (96-108); Creatinine Clr Calc Pharmacy 63.1; Estimated Glomerular Filt Rate > 60; Glucose Fasting 110 mg/dL (60-99); Potassium 3.6 mmol/L (3.3-5.1); Sodium 139 mmol/L (135-145); Total Protein 5.5 g/dL (6.5-8.0)
[2022-06-15 07:55] VITALS: BP 148/71; PULSE 62; RESP 20; TEMP 37.1; O2SAT 94
[2022-06-15] MEDS: Metoprolol Succinate ER 25 MG TAB.ER.24H PO (08:08)
--- NOTE | 2022-06-15 11:39 | HO.POSTANES ---
Post Anesthesia Evaluation Post Anesthesia Evaluation Vital Signs: Vital Signs Temp Pulse Resp BP Pulse Ox O2 Del Method 06/15/22 07:55 98.7 F 62 20 148/71 H 94 Room Air 06/15/22 02:50 98.4 F 65 16 128/61 94 Room Air 06/14/22 23:45 97.6 F 61 14 125/61 97 Room Air Anesthesia: General Mental Status: Awake Pain Control: Satisfactory Nausea/Vomiting: None Hydration: Adequate Anesthesia-Related Issues: No Anes. Related Issues
[2022-06-15 11:41] VITALS: BP 128/66; PULSE 69; RESP 20; TEMP 36.8; O2SAT 96
--- NOTE | 2022-06-15 11:44 | P.PNIM_ITS ---
Subjective Subjective Date of Service: 06/15/22 Interval History: cc: prutitis, jaundice interval history:no changes Cardiovascular Cardiovascular: Reports no additional cardiovascular complaints Respiratory Respiratory: Reports no additional respiratory complaints Physical Exam Vital Signs: Vital Signs: Last Vital Signs Temp 98.3 F 06/15/22 11:41 Pulse 69 06/15/22 11:41 Resp 20 06/15/22 11:41 BP 128/66 06/15/22 11:41 Pulse Ox 96 06/15/22 11:41 O2 Del Method 06/15/22 11:41 O2 Flow Rate 6 06/14/22 16:26 BMI result Body Mass Index 25.0 General: AO X 3, no acute distress, jaundice Resp: CTA bilateral, no accessory muscles used CVS: S1,S2,RRR GI: soft, non tender, non distended Neuro: motor grossly intact, alert Psych: appropriate affect, appropriate insight Objective Data Active Medications Lactated Ringer's (Lr) 1,000 mls @ 100 mls/hr IVCONT .Q10H [facility] Last Admin: 06/15/22 01:27 Dose: 100 mls/hr Documented By: COMPA Piperacillin Sod/Tazobactam (Sod 3.375 gm/ Sodium Chloride) 50 mls @ 100 mls/hr IV Q6H [facility] Melatonin (Melatonin 3 Mg Tablet) 6 mg PO BEDTIME PRN PRN Reason: Insomnia Metoprolol Succinate (Metoprolol Succinate Er 25 Mg Tab.Er.24h) 25 mg PO DAILY [facility]; Protocol Last Admin: 06/15/22 08:08 Dose: 25 mg Documented By: ROMAN Morphine Sulfate (Morphine Sulfate 4 Mg/Ml Cartridge) 4 mg IVPUSH Q4H PRN; Protocol PRN Reason: Pain, Severe (Pain Scale 7-10) Ondansetron HCl (Ondansetron Hcl 4 Mg/2 Ml Vial) 4 mg IVPUSH Q8H PRN PRN Reason: Nausea and Vomiting Pharmacy Consult (Consult Rx Perform Med Rec) 1 each MISCELLANE ONCE PRN PRN Reason: Consult order Sodium Chloride (0.9 % Sodium Chloride Flush 3 Ml Syringe) 3 ml IVFLUSH QSHIFT [facility] Last Admin: 06/15/22 08:09 Dose: 3 ml Documented By: ROMAN Labs CBC & Chem 7: 06/14/22 06:08 06/15/22 06:24 Labs: Laboratory Results - last 24 hr 06/14/22 06/15/22 12:14 06:24 Anion Gap 11 L Estim Creat Clear Calc 63.1 Estimated GFR > 60 Fasting Glucose 110 H Calcium 8.8 Total Bilirubin 10.0 H Direct Bilirubin 5.2 H AST 340 H ALT 576 H Alkaline Phosphatase 651 H C-Reactive Protein 2.45 H Total Protein 5.5 L Albumin 3.1 L Blood Type A Positive Antibody Screen NEGATIVE Assessment and Plan (1) Pancreatic cancer: Status: Acute (2) Obstructive jaundice: Status: Acute Plan 81-year-old female with pertinent history left-sided DCIS status post surgery, radiation therapy in 2011, essential hypertension, hyperlipidemia who was sent to the emergency department by Gastroenterology for evaluation of jaundice. Painless obstructive jaundice Imaging with pancreatic head mass unsuccessful ERCP 06/14/22, brushings sent plan for PTC HTN metoprolol COVID-19 infection asymptomatic DVT prophylaxis:? Mechanical.? due to pending PTC Full code reason for continued hospitalization: plan for relief of obstruction Quality Stroke Does the patient have a stroke diagnosis?: No VTE Prior VTE?: No VTE Risk Level:: Medical - moderate - high VTE Device Contraindication: N/A - Device Ordered VTE Drug Contraindication: Treatment Not Indicated
[2022-06-15] MEDS: Piperacillin Sodium/Tazobactam 3.375 GM in 0.9 % Sodium Chloride 50 ML IV ×2 (12:39→23:34)
--- NOTE | 2022-06-15 13:31 | P.PNGI_ITS ---
Subjective Subjective Date of Service: 06/15/22 Critical Care Time (minutes): 0 Comment: Patient seen and evaluated bedside. Remains on COVID precautions. Waiting to go to IR suite. Physical Exam Vital Signs: Vital Signs: Last Vital Signs Temp 98.3 F 06/15/22 11:41 Pulse 69 06/15/22 11:41 Resp 20 06/15/22 11:41 BP 128/66 06/15/22 11:41 Pulse Ox 96 06/15/22 11:41 O2 Del Method 06/15/22 11:41 O2 Flow Rate 6 06/14/22 16:26 BMI result Body Mass Index 25.0 General appearance: Grossly icteric, alert HEENT: Mild soft tissue swelling on the left neck Abdomen: Soft, nontender Objective Data Labs CBC & Chem 7: 06/14/22 06:08 06/15/22 06:24 Labs: Laboratory Results - last 24 hr 06/15/22 06:24 Sodium 139 Potassium 3.6 Chloride 108 Carbon Dioxide 24 Anion Gap 11 L BUN 12 Creatinine 0.65 Estim Creat Clear Calc 63.1 Estimated GFR > 60 Fasting Glucose 110 H Calcium 8.8 Total Bilirubin 10.0 H Direct Bilirubin 5.2 H AST 340 H ALT 576 H Alkaline Phosphatase 651 H C-Reactive Protein 2.45 H Total Protein 5.5 L Albumin 3.1 L Procedures Date of Service Date of Service: 06/15/22 Progress Note: A&P Assessment and plan (1) Pancreatic mass: Status: Acute (2) Obstructive jaundice: Status: Acute Plan Unfortunately, ERCP was not successful yesterday. BD brushings obtained. Cytology pending. Case reviewed with [place] and Cathy, options for i) round trip ERCP at [facility] early next week ii) outpatient referral for ERCP and iii) [place] [facility] [place] Pt is scheduled for PTC later today. Discussed with the pt that will refer for urgent ERCP as outpatient. Time Spent With Patient Time: Total time spent is greater than 50% in coordination of care (as documented) at patient's floor/unit and/or counseling patient: Quality Stroke Does the patient have a stroke diagnosis?: No VTE Prior VTE?: No VTE Risk Level:: Medical - moderate - high VTE Device Contraindication: N/A - Device Ordered VTE Drug Contraindication: Treatment Not Indicated
--- NOTE | 2022-06-15 15:18 | MHC.CM.PN ---
No dc today per MD rounds. Stent placement did not occur yesterday in IR. A percutanious drain placement is planned. DP home self care family transport.
[2022-06-15 16:00] VITALS: BP 158/75; PULSE 71; RESP 18; TEMP 37.1; O2SAT 98
--- NOTE | 2022-06-15 18:53 | HO.RADPN ---
RADIOLOGY Narrative Narrative: Rightl biliary drainage. 8.5 fr drain placed. Tip in right main hepatic duct. No filling of left sided ducts or CBD. Specimen sent for culture and cytology. Please keep on antibiotics.
[2022-06-15 20:00] VITALS: BP 169/74; RESP 18; TEMP 37.2; O2SAT 94
[2022-06-16 04:00] VITALS: BP 136/65; PULSE 71; RESP 20; TEMP 37.2; O2SAT 94
[2022-06-16] MEDS: Lactated Ringers 1,000 ML 100 ML IVCONT (05:40)
[2022-06-16] MEDS: Piperacillin Sodium/Tazobactam 3.375 GM in 0.9 % Sodium Chloride 50 ML IV ×4 (05:40→22:09)
[2022-06-16 07:06] LABS: Hematocrit 30.5 % (37.0-47.0); Hemoglobin 10.9 g/dl (12.0-16.0); Mean Corpuscular HGB Conc 35.7 g/dl (31.0-35.0); Mean Corpuscular Hemoglobin 30.5 pg (27.0-33.0); Mean Corpuscular Volume 85.4 fL (80.0-98.0); Mean Platelet Volume 10.6 fL (9.4-12.3); Platelet Count 219 X10*3/uL (160-400); Red Blood Count 3.57 X10*6/uL (4.20-5.50); Red Cell Distribution Width 16.4 % (11.0-16.0); White Blood Count 5.7 X10*3/uL (4.8-10.8)
[2022-06-16 07:32] LABS: Alanine Aminotransferase 483 U/L (0-31); Albumin Level 3.2 g/dL (3.5-5.0); Alkaline Phosphatase 598 U/L (39-117); Anion Gap 13 (12-20); Aspartate Amino Transferase 280 U/L (5-31); Bilirubin Direct 5.2 mg/dL (0.0-0.5); Bilirubin Total 9.4 mg/dL (0.0-1.0); Blood Urea Nitrogen 12 mg/dL (9-16); Calcium 8.7 mg/dL (8.4-10.2); Carbon Dioxide 23 mmol/L (22-29); Chloride 106 mmol/L (96-108); Creatinine Clr Calc Pharmacy 63.1; Estimated Glomerular Filt Rate > 60; Glucose Fasting 104 mg/dL (60-99); Potassium 3.5 mmol/L (3.3-5.1); Sodium 138 mmol/L (135-145); Total Protein 5.6 g/dL (6.5-8.0)
[2022-06-16 07:59] VITALS: BP 158/60; PULSE 70; RESP 17; TEMP 36.8; O2SAT 95
[2022-06-16] MEDS: Metoprolol Succinate ER 25 MG TAB.ER.24H PO (09:10)
[2022-06-16] MEDS: 0.9 % Sodium Chloride Flush 3 ML SYRINGE IVFLUSH ×3 (09:10→22:09)
--- NOTE | 2022-06-16 10:28 | P.PNIM_ITS ---
Subjective Subjective Date of Service: 06/16/22 Interval History: cc: prutitis, jaundice interval history:some pain at PTC, though tolerable Cardiovascular Cardiovascular: Reports no additional cardiovascular complaints Respiratory Respiratory: Reports no additional respiratory complaints Physical Exam Vital Signs: Vital Signs: Last Vital Signs Temp 98.3 F 06/16/22 07:59 Pulse 70 06/16/22 07:59 Resp 17 06/16/22 07:59 BP 158/60 H 06/16/22 07:59 Pulse Ox 95 06/16/22 07:59 O2 Del Method 06/16/22 07:59 O2 Flow Rate 6 06/14/22 16:26 BMI result Body Mass Index 25.0 General appearance: Grossly icteric, alert HEENT: Mild soft tissue swelling on the left neck Abdomen: Soft, nontender Objective Data Active Medications Lactated Ringer's (Lr) 1,000 mls @ 100 mls/hr IVCONT .Q10H [facility] Last Admin: 06/16/22 05:40 Dose: 100 mls/hr Documented By: JOSEFINA Piperacillin Sod/Tazobactam (Sod 3.375 gm/ Sodium Chloride) 50 mls @ 100 mls/hr IV Q6H [facility] Last Infusion: 06/16/22 06:14 Dose: 0 mls/hr Documented By: JOSEFINA Melatonin (Melatonin 3 Mg Tablet) 6 mg PO BEDTIME PRN PRN Reason: Insomnia Metoprolol Succinate (Metoprolol Succinate Er 25 Mg Tab.Er.24h) 25 mg PO DAILY [facility]; Protocol Last Admin: 06/16/22 09:10 Dose: 25 mg Documented By: ROMAN Morphine Sulfate (Morphine Sulfate 4 Mg/Ml Cartridge) 4 mg IVPUSH Q4H PRN; Protocol PRN Reason: Pain, Severe (Pain Scale 7-10) Ondansetron HCl (Ondansetron Hcl 4 Mg/2 Ml Vial) 4 mg IVPUSH Q8H PRN PRN Reason: Nausea and Vomiting Pharmacy Consult (Consult Rx Perform Med Rec) 1 each MISCELLANE ONCE PRN PRN Reason: Consult order Sodium Chloride (0.9 % Sodium Chloride Flush 3 Ml Syringe) 3 ml IVFLUSH QSHIFT [facility] Last Admin: 06/16/22 09:10 Dose: 3 ml Documented By: ROMAN Labs CBC & Chem 7: 06/16/22 06:47 06/16/22 06:47 Labs: Laboratory Results - last 24 hr 06/16/22 06/16/22 06:47 06:47 MCV 85.4 MCH 30.5 MCHC 35.7 H RDW 16.4 H Plt Count 219 MPV 10.6 Absolute Nucleated RBC 0.000 Nucleated RBC % (auto) 0.0 Anion Gap 13 Estim Creat Clear Calc 63.1 Estimated GFR > 60 Fasting Glucose 104 H Calcium 8.7 Total Bilirubin 9.4 H Direct Bilirubin 5.2 H AST 280 H ALT 483 H Alkaline Phosphatase 598 H Total Protein 5.6 L Albumin 3.2 L Microbiology Microbiology Results: Microbiology 06/15/22 16:30 Gram Stain - Final Abdominal Fluid Assessment and Plan (1) Pancreatic cancer: Status: Acute (2) Obstructive jaundice: Status: Acute Plan 81-year-old female with pertinent history left-sided DCIS status post surgery, radiation therapy in 2011, essential hypertension, hyperlipidemia who was sent to the emergency department by Gastroenterology for evaluation of jaundice. Painless obstructive jaundice Imaging with pancreatic head mass unsuccessful ERCP 06/14/22, brushings sent s/p PTC 06/15/22, draining well monitor LFTs empiric zosyn follow up path HTN metoprolol COVID-19 infection asymptomatic DVT prophylaxis:? lovenox Full code reason for continued hospitalization: monitor for proper drainage Time Spent With Patient Time: Total time managing care of this patient today ____ minutes. Quality Stroke Does the patient have a stroke diagnosis?: No VTE Prior VTE?: No VTE Risk Level:: Medical - moderate - high VTE Device Contraindication: N/A - Device Ordered VTE Drug Contraindication: Treatment Not Indicated
[2022-06-16] MEDS: Enoxaparin Sodium 40 MG/0.4 ML SYRINGE SUBCUT (10:49)
[2022-06-16 12:00] VITALS: BP 165/65; PULSE 72; RESP 16; TEMP 36.7; O2SAT 94
[2022-06-16 15:44] VITALS: BP 169/52; PULSE 68; RESP 17; TEMP 36.8; O2SAT 96
[2022-06-16 19:49] VITALS: BP 149/74; PULSE 82; RESP 16; TEMP 36.9; O2SAT 94
[2022-06-17] VITALS (7 sets, daily range): BP systolic 122–169; BP diastolic 60–79; PULSE 63–94; RESP 16–18; TEMP 36.1–37.7; O2SAT 95–97
[2022-06-17] MEDS: Piperacillin Sodium/Tazobactam 3.375 GM in 0.9 % Sodium Chloride 50 ML IV ×4 (04:21→22:13)
[2022-06-17 07:39] LABS: Hemoglobin 10.4 g/dl (12.0-16.0); Mean Corpuscular HGB Conc 34.7 g/dl (31.0-35.0); Mean Corpuscular Hemoglobin 29.8 pg (27.0-33.0); Mean Platelet Volume 9.8 fL (9.4-12.3); Platelet Count 226 X10*3/uL (160-400); Red Blood Count 3.49 X10*6/uL (4.20-5.50); Red Cell Distribution Width 16.6 % (11.0-16.0); White Blood Count 5.5 X10*3/uL (4.8-10.8)
[2022-06-17 08:05] LABS: Alanine Aminotransferase 377 U/L (0-31); Albumin Level 3.1 g/dL (3.5-5.0); Alkaline Phosphatase 516 U/L (39-117); Anion Gap 11 (12-20); Aspartate Amino Transferase 197 U/L (5-31); Bilirubin Direct 4.7 mg/dL (0.0-0.5); Bilirubin Total 7.9 mg/dL (0.0-1.0); Blood Urea Nitrogen 9 mg/dL (9-16); Calcium 8.5 mg/dL (8.4-10.2); Carbon Dioxide 24 mmol/L (22-29); Chloride 106 mmol/L (96-108); Creatinine Clr Calc Pharmacy 69.5; Estimated Glomerular Filt Rate > 60; Glucose Fasting 112 mg/dL (60-99); Potassium 3.3 mmol/L (3.3-5.1); Sodium 138 mmol/L (135-145); Total Protein 5.5 g/dL (6.5-8.0)
[2022-06-17] MEDS: Metoprolol Succinate ER 25 MG TAB.ER.24H PO (09:25)
[2022-06-17] MEDS: 0.9 % Sodium Chloride Flush 3 ML SYRINGE IVFLUSH ×3 (09:25→23:02)
--- NOTE | 2022-06-17 09:43 | HO.PM.IMPN ---
Subjective Subjective Date of Service: 06/17/22 Interval History: cc: pruritis interval history:improved Cardiovascular Cardiovascular: Reports no additional cardiovascular complaints Respiratory Respiratory: Reports no additional respiratory complaints Physical Exam Vital Signs: Vital Signs: Last Vital Signs Temp 98.8 F 06/17/22 08:00 Pulse 63 06/17/22 08:00 Resp 16 06/17/22 08:00 BP 162/79 H 06/17/22 08:00 Pulse Ox 95 06/17/22 08:00 O2 Del Method 06/17/22 08:00 O2 Flow Rate 6 06/14/22 16:26 BMI result Body Mass Index 25.0 General: AO X 3, no acute distress, jaundiced Resp: CTA bilateral, no accessory muscles used CVS: S1,S2,RRR GI: soft, non tender, non distended, PTC draining Neuro: motor grossly intact, alert Psych: appropriate affect, appropriate insight Objective Data Active Medications Enoxaparin Sodium (Enoxaparin Sodium 40 Mg/0.4 Ml Syringe) 40 mg SUBCUT Q24H [facility] Last Admin: 06/16/22 10:49 Dose: 40 mg Documented By: ROMAN Piperacillin Sod/Tazobactam (Sod 3.375 gm/ Sodium Chloride) 50 mls @ 100 mls/hr IV Q6H [facility] Last Infusion: 06/17/22 04:51 Dose: 0 mls/hr Documented By: JOSEFINA Melatonin (Melatonin 3 Mg Tablet) 6 mg PO BEDTIME PRN PRN Reason: Insomnia Metoprolol Succinate (Metoprolol Succinate Er 25 Mg Tab.Er.24h) 25 mg PO DAILY [facility]; Protocol Last Admin: 06/17/22 09:25 Dose: 25 mg Documented By: ROMAN Morphine Sulfate (Morphine Sulfate 4 Mg/Ml Cartridge) 4 mg IVPUSH Q4H PRN; Protocol PRN Reason: Pain, Severe (Pain Scale 7-10) Ondansetron HCl (Ondansetron Hcl 4 Mg/2 Ml Vial) 4 mg IVPUSH Q8H PRN PRN Reason: Nausea and Vomiting Pharmacy Consult (Consult Rx Perform Med Rec) 1 each MISCELLANE ONCE PRN PRN Reason: Consult order Sodium Chloride (0.9 % Sodium Chloride Flush 3 Ml Syringe) 3 ml IVFLUSH QSHIFT [facility] Last Admin: 06/17/22 09:25 Dose: 3 ml Documented By: ROMAN Labs CBC & Chem 7: 06/17/22 07:29 06/17/22 07:29 Labs: Laboratory Results - last 24 hr 06/17/22 06/17/22 07:29 07:29 MCV 86.0 MCH 29.8 MCHC 34.7 RDW 16.6 H Plt Count 226 MPV 9.8 Absolute Nucleated RBC 0.000 Nucleated RBC % (auto) 0.0 Anion Gap 11 L Estim Creat Clear Calc 69.5 Estimated GFR > 60 Fasting Glucose 112 H Calcium 8.5 Total Bilirubin 7.9 H Direct Bilirubin 4.7 H AST 197 H ALT 377 H Alkaline Phosphatase 516 H Total Protein 5.5 L Albumin 3.1 L Microbiology Microbiology Results: Microbiology 06/15/22 16:30 Gram Stain - Final Abdominal Fluid Anaerobic Culture - Preliminary No growth to date. Body Fluid Culture - Preliminary No growth to date. Assessment and Plan (1) Pancreatic cancer: Status: Acute (2) Obstructive jaundice: Status: Acute Plan 81-year-old female with pertinent history left-sided DCIS status post surgery, radiation therapy in 2011, essential hypertension, hyperlipidemia who was sent to the emergency department by Gastroenterology for evaluation of jaundice. Painless obstructive jaundice Imaging with pancreatic head mass unsuccessful ERCP 06/14/22, brushings sent s/p PTC 06/15/22, draining well monitor LFTs - improving empiric zosyn follow up path HTN metoprolol COVID-19 infection asymptomatic DVT prophylaxis:? lovenox Full code reason for continued hospitalization: safe dispo Time Spent With Patient Time: Total time managing care of this patient today ____ minutes. Quality Stroke Does the patient have a stroke diagnosis?: No VTE Prior VTE?: No VTE Risk Level:: Medical - moderate - high VTE Device Contraindication: N/A - Device Ordered VTE Drug Contraindication: Treatment Not Indicated
--- NOTE | 2022-06-17 09:46 | P.F2F_ITS ---
Service Date Service Date: 06/17/22 Encounter Date of encounter: 06/18/22 Reasons for Services Signs and symptoms assessed: weakness Reason for correction: medication management, medication treatment, teach disease management and other (record output, change and dress PTC) Homebound: Leaving the home is medically contraindicated at this time without the asist of a device and/or another person due th the listed conditions above and below. Reason homebound: weakness related to hospital stay Certification: Based on the above findings, I certify that this patient is confined to the home and needs intermittent correction care, physical therapy and/or speech therapy, or continues to need occupational therapy. The patient is under my care, and I have initiated the establishment of the plan of care. The patient will be followed by a physician who will periodically review the plan of care. Time Spent With Patient Time: Total time managing care of this patient today ____ minutes.
--- NOTE | 2022-06-17 09:48 | PM.DS ---
DS: Providers Provider Date of Service: 06/18/22 Date of admission: 06/12/22 20:05 Primary care physician: Carmen Lara MD Consults: 06/12/22 20:05 Consult to Hematology / Oncology Routine Consulting Provider: Wilman Sheets Reason for consultation: pancreatic ca 06/12/22 20:30 Consult to Gastroenterology Routine Consulting Provider: Billie Lawson Reason for consultation: obstructive jaundice DS: Diagnosis Discharge Diagnosis (1) Pancreatic cancer: Status: Acute (2) Obstructive jaundice: Status: Acute DS: Summary Hospital Course Hospital Course: from initial hpi: Chief Complaint: Jaundice This is a 81-year-old female with pertinent history left-sided DCIS status post surgery, radiation therapy in 2011, essential hypertension, hyperlipidemia who was sent to the emergency department by Gastroenterology for evaluation of jaundice.? Patient states she has been feeling weak for the last 10 days.? It is associated with poor appetite and she has lost 5 lb in 10 days.? Patient states she has also noticed yellowish discoloration for skin, change in color of her urine and stool.? Patient went to her PCP on Saturday and ultrasound of the abdomen was done which revealed dilated intra and extrahepatic biliary ducts.? Patient went to see Dr. Lawson, Gastroenterology who recommended admission for further workup.? No history of pancreatic cancer in the family.? Patient denies smoking.? Patient previously used to take occasional Tylenol but stopped since Saturday.? She denies abdominal discomfort, fever, chills, nausea, vomiting, chest pain, shortness of breath, palpitations. In the emergency department, CT scan of the abdomen with masslike density in the region of pancreatic head approximately 4 cm highly suspicious for malignancy hospital course: Patient was admitted for painless obstructive jaundice with pruritus secondary to pancreatic head mass. ERCP was attempted on 06/14/2022 with brushings taken but unable to place stent. Therefore, PTC was performed 06/15/2022 with successful drainage, improvement in bilirubin, patient was treated with empiric Zosyn and will be discharged on 7 more days of cefuroxime. She should follow-up with Oncology and pathology results. For hypertension she was continued on metoprolol. Patient was noted to have asymptomatic COVID-19 and should follow CDC isolation guidelines. Time Spent with Patient Time attestation: Total time managing care of this patient today ____ minutes. Discharge coordination time: Greater than 30 minutes Quality: Safe Use of Opioids Does Pt have an Active Cancer Diagnosis on the Problem List?: Yes Opioid Measure Date for [facility] Report: 05/19/22 Opioid Measure Time for [facility] Report: 15:19 Quality: Stroke Does the patient have a stroke diagnosis?: No Physical Exam Vital Signs: Vital Signs: Last Vital Signs Temp 98.8 F 06/17/22 08:00 Pulse 63 06/17/22 08:00 Resp 16 06/17/22 08:00 BP 162/79 H 06/17/22 08:00 Pulse Ox 95 06/17/22 08:00 O2 Del Method 06/17/22 08:00 O2 Flow Rate 6 06/14/22 16:26 BMI result Body Mass Index 25.0 General: AO X 3, no acute distress, jaundiced Resp: CTA bilateral, no accessory muscles used CVS: S1,S2,RRR GI: soft, non tender, non distended, PTC draining Neuro: motor grossly intact, alert Psych: appropriate affect, appropriate insight DS: Data Data Completed and Pending Pending studies at discharge: Pending at discharge 06/14/22 14:57 Cytology [PTH] Routine 06/15/22 18:51 Cytology [PTH] Routine Labs on day of discharge: Laboratory Results - last 24 hr 06/17/22 06/17/22 07:29 07:29 WBC 5.5 RBC 3.49 L Hgb 10.4 L Hct 30.0 L MCV 86.0 MCH 29.8 MCHC 34.7 RDW 16.6 H Plt Count 226 MPV 9.8 Absolute Nucleated RBC 0.000 Nucleated RBC % (auto) 0.0 Sodium 138 Potassium 3.3 Chloride 106 Carbon Dioxide 24 Anion Gap 11 L BUN 9 Creatinine 0.59 Estim Creat Clear Calc 69.5 Estimated GFR > 60 Fasting Glucose 112 H Calcium 8.5 Total Bilirubin 7.9 H Direct Bilirubin 4.7 H AST 197 H ALT 377 H Alkaline Phosphatase 516 H Total Protein 5.5 L Albumin 3.1 L Preliminary micro results at discharge 06/15/22 16:30 Anaerobic Culture - Preliminary Abdominal Fluid No growth to date. Body Fluid Culture - Preliminary No growth to date. Discharge Plan Discharge Anticipated Discharge Date/Time: 06/17/22 09:45 Patient Disposition: Home Health Service Discharge Diagnosis: obstructive jaundice Referrals: [facility] [Other] - 1 Week (Home care services) Carmen Lara MD [Primary Care Provider] - 1 Week Discharge Medications: New cefuroxime axetil 500 mg tablet 500 mg PO BID Qty: 14 0RF Continued metoprolol succinate 25 mg tablet extended release 24 hr 25 mg PO DAILY Qty: 90 2RF Discharge Orders: Discharge Order (Routine); Ordered 06/18/22 Ordered By: Morgan Morgan Diet: Advance to usual diet Activity on Discharge: As tolerated Stand Alone Forms: Patient Portal Discharge page Care Plan Goals: manage pancreatic mass Health Concerns: pancreatic mass Plan of Treatment: follow up with oncology Assessment: see above Discharge Date/Time: 06/18/22 14:30
[2022-06-17] MEDS: Enoxaparin Sodium 40 MG/0.4 ML SYRINGE SUBCUT (11:32)
[2022-06-18 03:15] VITALS: BP 138/78; PULSE 71; RESP 18; TEMP 36.3; O2SAT 96
[2022-06-18] MEDS: Piperacillin Sodium/Tazobactam 3.375 GM in 0.9 % Sodium Chloride 50 ML IV ×2 (05:37→11:26)
[2022-06-18 06:25] LABS: Hematocrit 30.7 % (37.0-47.0); Hemoglobin 10.8 g/dl (12.0-16.0); Mean Corpuscular HGB Conc 35.2 g/dl (31.0-35.0); Mean Corpuscular Hemoglobin 30.4 pg (27.0-33.0); Mean Corpuscular Volume 86.5 fL (80.0-98.0); Mean Platelet Volume 10.2 fL (9.4-12.3); Platelet Count 256 X10*3/uL (160-400); Red Blood Count 3.55 X10*6/uL (4.20-5.50); Red Cell Distribution Width 16.3 % (11.0-16.0); White Blood Count 4.8 X10*3/uL (4.8-10.8)
[2022-06-18 06:50] LABS: Alanine Aminotransferase 335 U/L (0-31); Albumin Level 3.2 g/dL (3.5-5.0); Alkaline Phosphatase 464 U/L (39-117); Anion Gap 11 (12-20); Aspartate Amino Transferase 173 U/L (5-31); Bilirubin Total 7.8 mg/dL (0.0-1.0); Blood Urea Nitrogen 10 mg/dL (9-16); Calcium 8.6 mg/dL (8.4-10.2); Carbon Dioxide 23 mmol/L (22-29); Chloride 106 mmol/L (96-108); Creatinine Clr Calc Pharmacy 58.6; Estimated Glomerular Filt Rate > 60; Glucose Fasting 118 mg/dL (60-99); Potassium 3.4 mmol/L (3.3-5.1); Sodium 137 mmol/L (135-145); Total Protein 5.7 g/dL (6.5-8.0)
[2022-06-18 07:39] VITALS: BP 142/65; PULSE 62; RESP 18; TEMP 37.1; O2SAT 97
[2022-06-18] MEDS: 0.9 % Sodium Chloride Flush 3 ML SYRINGE IVFLUSH (08:39)
[2022-06-18] MEDS: Metoprolol Succinate ER 25 MG TAB.ER.24H PO (08:39)
[2022-06-18] MEDS: Enoxaparin Sodium 40 MG/0.4 ML SYRINGE SUBCUT (11:26)
[2022-06-18 11:32] VITALS: BP 119/64; PULSE 72; RESP 20; TEMP 36.9; O2SAT 96
--- NOTE | 2022-06-18 12:16 | MHC.CM.PN ---
IMM 06/18/22 Patient is discharged to home today. [facility] will provide VNA services. Family will provide transport home. A HCP was documented and scanned into the EMR. The original, and copies have been given to the patient.
--- NOTE | 2022-06-18 14:53 | PC.NURSE ---
Alert and oriented. Denies pain, VSS, afebrile, no acute resp. distress noted. Took schedule meds as ordered. Drained empty for 300ml. New order to discharge patient home with services. Went over discharge instructions, medications and follow up apt. Showed patient how to empty the drain herself. Staff transported to the lobby, left via car with her .
== END 2022-06-18 14:30 | disposition home health service (06) | DRG 435 ==
LOC: HO.ED 17:44 → HO.EDOVER 20:18 → HO.IMC 06-13 12:56
PROVIDERS: Internal Medicine Gastroenterology; Radiology Diagnostic Radiology; Student in an Organized Health Care Education/Training Program; Admitting Provider Student in an Organized Health Care Education/Training Program; Emergency Provider Internal Medicine; PCP Internal Medicine; Visit Provider Internal Medicine
PROC: 0FD Hepatobiliary System and Pancreas, Extraction (ICD-10-PCS; CPT 43260; principal; 2022-06-14 13:30)
PROC: 0F9930Z Drainage of Common Bile Duct with Drainage Device, Percutaneous Approach (ICD-10-PCS; principal; 2022-06-15 15:00)
DX: C25.0 Malignant neoplasm of head of pancreas (principal); U07.1 COVID-19; I10 Essential (primary) hypertension; E78.2 Mixed hyperlipidemia; Z85.3 Personal history of malignant neoplasm of breast; Z92.3 Personal history of irradiation; Z88.0 Allergy status to penicillin; Z79.899 Other long term (current) drug therapy
CPT/HCPCS: 36415; 74177; 74183; 76942; 77002; 80048; 80053; 80076; 82140; 82947; 85025; 85027; 85610; 85730; 86140; 86301; 86704; 86706; 86803; 86850; 86900; 86901; 87070; 87073; 87205; 87340; 87635; 88112; 99152; 99153; 99285; A9585; C1769; C2625; J0690; J1610; J1650; J2370; J2405; J2543; J3010; Q9967

== ENCOUNTER 2022-06-25 08:58 | Outpatient (REF) | payer MEDICARE, SELFPAY ==
[2022-06-25 09:07] LABS: MANUAL DIFF FLAG NO
[2022-06-25 09:30] LABS: Eosinophils Absolute Auto 0.2 X10*3/uL (0.0-0.4); Eosinophils Percent Auto 4.9 % (0-4); Hemoglobin 12.4 g/dl (12.0-16.0); Imm Gran Abs Auto 0.01 X10*3/uL (0.00-0.03); Imm Gran Pct Auto 0.3 % (0.0-0.4); Lymphocytes Absolute Auto 1.3 X10*3/uL (1.2-4.9); Lymphocytes Percent Auto 32.4 % (20-40); Mean Corpuscular HGB Conc 32.6 g/dl (31.0-35.0); Mean Platelet Volume 10.4 fL (9.4-12.3); Monocytes Absolute Auto 0.5 X10*3/uL (0.1-1.2); Monocytes Percent Auto 12.7 % (2-11); Neutrophils Absolute Auto 1.9 x10*3/uL (2.0-8.3); Neutrophils Percent Auto 48.7 % (45-73); Platelet Count 350 X10*3/uL (160-400); Red Blood Count 4.13 X10*6/uL (4.20-5.50); Red Cell Distribution Width 15.7 % (11.0-16.0); White Blood Count 3.9 X10*3/uL (4.8-10.8)
[2022-06-25 10:23] LABS: Alanine Aminotransferase 405 U/L (0-31); Albumin Level 3.8 g/dL (3.5-5.0); Alkaline Phosphatase 423 U/L (39-117); Anion Gap 13 (12-20); Aspartate Amino Transferase 272 U/L (5-31); Bilirubin Total 5.9 mg/dL (0.0-1.0); Blood Urea Nitrogen 12 mg/dL (9-16); Calcium 9.4 mg/dL (8.4-10.2); Carbon Dioxide 24 mmol/L (22-29); Chloride 106 mmol/L (96-108); Estimated Glomerular Filt Rate > 60; Glucose Fasting 116 mg/dL (60-99); Potassium 4.2 mmol/L (3.3-5.1); Sodium 139 mmol/L (135-145); Total Protein 6.8 g/dL (6.5-8.0)
== END 2022-06-25 08:59 | disposition home or self-care (01) ==
LOC: HO.LAB 08:58
PROVIDERS: PCP Internal Medicine; Visit Provider Internal Medicine
DX: K83.1 Obstruction of bile duct (principal); K86.89 Other specified diseases of pancreas
CPT/HCPCS: 36415; 80053; 85025

== ENCOUNTER 2022-07-03 02:38 | Emergency (ER) | payer MEDICARE, SELFPAY ==
[2022-07-03 02:45] VITALS: BP 160/81; BP 180/90; PULSE 80; PULSE 86; RESP 18; TEMP 36.9; O2SAT 98; BMI 24.9
[2022-07-03] MEDS: 0.9 % Sodium Chloride 1,000 ML 999 ML IVCONT (03:38)
[2022-07-03 03:46] VITALS: RESP 18
[2022-07-03 03:46] LABS: MANUAL DIFF FLAG NO
[2022-07-03] MEDS: Morphine Sulfate 4 MG/ML CARTRIDGE IVPUSH (03:46)
[2022-07-03 03:47] LABS: Basophils Percent Auto 0.4 % (0-2); Eosinophils Percent Auto 0.5 % (0-4); Hematocrit 40.4 % (37.0-47.0); Hemoglobin 13.5 g/dl (12.0-16.0); Imm Gran Abs Auto 0.02 X10*3/uL (0.00-0.03); Imm Gran Pct Auto 0.2 % (0.0-0.4); Lymphocytes Absolute Auto 0.6 X10*3/uL (1.2-4.9); Lymphocytes Percent Auto 7.3 % (20-40); Mean Corpuscular HGB Conc 33.4 g/dl (31.0-35.0); Mean Corpuscular Hemoglobin 30.4 pg (27.0-33.0); Mean Platelet Volume 9.7 fL (9.4-12.3); Monocytes Absolute Auto 0.6 X10*3/uL (0.1-1.2); Monocytes Percent Auto 6.5 % (2-11); Neutrophils Absolute Auto 7.2 x10*3/uL (2.0-8.3); Neutrophils Percent Auto 85.1 % (45-73); Platelet Count 278 X10*3/uL (160-400); Red Blood Count 4.44 X10*6/uL (4.20-5.50); White Blood Count 8.5 X10*3/uL (4.8-10.8)
--- NOTE | 2022-07-03 03:51 | ED.GENADULT ---
HPI - General Adult General Chief complaint: General Medical Stated complaint: right sided pain Time Seen by Provider: 07/03/22 03:15 Source: patient and EMS Mode of arrival: EMS Limitations: no limitations History of Present Illness HPI narrative: Patient comes to the emergency room complaining of right-sided abdominal pain. Patient has history of pancreatic adenocarcinoma, ?ERCP was attempted on 06/14/2022 with brushings? taken but unable to place stent.? Therefore, PTC was performed 06/15/2022 with successful drainage, improvement in bilirubin. Today, patient states that she cannot tolerate the pain. Patient denies fever chills. No vomiting or diarrhea. Related Data Previous Rx's Medication Instructions Recorded metoprolol succinate 25 mg 25 mg PO DAILY #90 caps 09/04/21 tablet,extended release 24 hr oxycodone 5 mg tablet 5 mg PO Q8H PRN pain #7 tabs 07/03/22 polyethylene glycol 3350 17 17 g PO DAILY PRN constipation 07/03/22 gram/dose oral powder (Miralax) #119 grams Allergies Allergy/AdvReac Type Severity Reaction Status Date / Time amoxicillin [Amoxicillin] Allergy Unknown NAUSEA, Verified 06/29/22 15:52 vomiting, severe GI problems Review of Systems Review of Systems: Constitutional : No Weight loss, No Fever, No Chills, No Night Sweats, No Fatigue, No Malaise ENT/Mouth : No Hearing loss, No Ear Pain, No Nasal Congestion, No Sinus Pain, No Hoarseness, No sore throat, No Rhinorrhea, No Swallowing Difficulty Eyes: No Eye Pain, No Swelling, No Redness, No Foreign Body, No Discharge, No Vision Changes Cardiovascular : No Chest Pain, No SOB, No Dyspnea on Exertion, No Orthopnea, No Edema, No Palpitations Respiratory : No Cough, No Sputum, No Wheezing, No Smoke Exposure, No Dyspnea Gastrointestinal : No Nausea, No Vomiting, No Diarrhea, No Constipation, complaining of worsening right-sided abdominal pain Genitourinary : no irregular bleeding, No Dysuria, No Urinary Frequency, No Hematuria, No Urinary Incontinence, No Urgency, No Flank Pain, No Urinary Flow Changes, No Hesitancy Musculoskeletal : No joint pain, No Myalgias, No Joint Swelling Skin : No Skin Lesions, No rash Neuro : No Weakness, No Numbness, No Paresthesias, No Loss of Consciousness, No Dizziness, No Headache Psych : No Anxiety/Panic, No Depression, No SI/HI/AH/VH, No Social Issues, Heme/Lymph: No Bruising, No Bleeding,No Lymphadenopathy Endocrine : No Polyuria, No Polydipsia, No Temperature Intolerance [facility] Past Medical History Medical History Ductal carcinoma in situ of left breast Dyslipidemia Elevated liver enzymes Essential hypertension H/O cyst of breast Hip pain, left Menopause 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 Mother No problems noted. Sister H/O thyroid disease Social History Social History Household Members: Significant Other Housing: House Are you a primary health care attorney to a significant other at home: No Do you presently have visiting nurse or other home services: No Alcohol intake: never Patient Tobacco Use Status: Never used Tobacco e-Cigarette/Vaping Use: Never Used Second Hand Smoke Exposure: No Advance Directives: Yes Advance Directives on File: Yes Advance Directives Date on File: 06/19/22 service: No Current occupational status: retired Cognitive needs: No Hearing needs: No Vision needs: No Physical Exam ED Vital Signs: Vital Signs - 24 hr 07/03/22 02:45 07/03/22 03:46 07/03/22 04:23 Temperature 98.4 F 98.6 F Pulse Rate 80 85 Respiratory Rate 18 18 20 Blood Pressure 160/81 H 165/75 H Pulse Oximetry 98 96 Oxygen Delivery Method Room Air Room Air BMI result Body Mass Index 24.9 Const Other: Appearance: Alert. Oriented X3. No acute distress. Eyes: Pupils equal, round and reactive to light. ENT: Pharynx normal. Neck: Normal inspection. Neck supple. No lymph nodes noted. No crepitus CVS: Normal heart rate and rhythm. Pulses normal. Normal S1 and S2 Respiratory: No respiratory distress. Breath sounds normal. No Wheezing. No rales Abdomen: Soft, distended, drain in right upper quadrant, painful to palpation diffusely Skin: Skin warm and dry. Normal skin color. Normal skin turgor. Mild to moderate jaundice Extremities: No lower extremity edema. No Lacerations. No Rash Neuro: Oriented X 3. No motor deficit. No sensory deficit. Moving all extremities. No slurred speech. CN 2 through 12 grossly intact Psych: calm, cooperative, normal affect Course Course Course Narrative: Patient is known to have pancreatic cancer. Patient had a drainage in place. We will obtain a CT scan without contrast to rule out any obstruction that may be causing patient's worsening symptoms. Follow up spending. Patient given fluids and IV morphine. Patient feeling better. Patient's labs are at baseline, CT scan looks better than the last time she was admitted. Patient will be discharged. Patient states that she has not been prescribed any pain medications. Medications Administered Discontinued Medications Generic Name Dose Route Start Last Admin Trade Name Freq PRN Reason Stop Dose Admin Sodium Chloride 1,000 mls @ 999 mls/hr 07/03/22 03:24 07/03/22 04:56 Ns IVCONT 07/03/22 04:24 Infused .Q1H1M ONE Infusion Morphine Sulfate 4 mg 07/03/22 03:24 07/03/22 03:46 Morphine Sulfate 4 Mg/Ml Cartridge IVPUSH 07/03/22 03:25 4 mg ONCE ONE Administration Protocol Medical Decision Making Lab Data MDM Lab Attestation statement: I reviewed the patient's lab results. Result Diagrams: 07/03/22 03:37 07/03/22 03:37 Labs: Lab Results 07/03/22 07/03/22 07/03/22 Range/Units 03:37 03:37 03:37 WBC 8.5 (4.8-10.8) X10*3/uL RBC 4.44 (4.20-5.50) X10*6/uL Hgb 13.5 (12.0-16.0) g/dl Hct 40.4 (37.0-47.0) % MCV 91.0 (80.0-98.0) fL MCH 30.4 (27.0-33.0) pg MCHC 33.4 (31.0-35.0) g/dl RDW 15.0 (11.0-16.0) % Plt Count 278 (160-400) X10*3/uL MPV 9.7 (9.4-12.3) fL Immature Gran % (Auto) 0.2 (0.0-0.4) % Neut % (Auto) 85.1 H (45-73) % Lymph % (Auto) 7.3 L (20-40) % Harding % (Auto) 6.5 (2-11) % Eos % (Auto) 0.5 (0-4) % Baso % (Auto) 0.4 (0-2) % Lymph # (Auto) 0.6 L (1.2-4.9) X10*3/uL Harding # (Auto) 0.6 (0.1-1.2) X10*3/uL Eos # (Auto) 0.0 (0.0-0.4) X10*3/uL Baso # (Auto) 0.0 (0.0-0.2) X10*3/uL Abs Immat Gran (auto) 0.02 (0.00-0.03) X10*3/uL Absolute Neuts (auto) 7.2 (2.0-8.3) x10*3/uL Absolute Nucleated RBC 0.000 (0.0-0.012) X10*3/uL Nucleated RBC % (auto) 0.0 (0.0-0.2) /100WBC PT (10.0-13.1) SEC INR (0.9-1.1) Sodium 137 (135-145) mmol/L Potassium 3.9 (3.3-5.1) mmol/L Chloride 104 (96-108) mmol/L Carbon Dioxide 22 (22-29) mmol/L Anion Gap 15 (12-20) BUN 17 H (9-16) mg/dL Creatinine 0.74 (0.5-1.4) mg/dL Estim Creat Clear Calc 57.5 Estimated GFR > 60 Random Glucose 159 H (60-115) mg/dL Lactic Acid (0.5-2.0) mmol/L Calcium 9.7 (8.4-10.2) mg/dL Magnesium 1.7 (1.6-2.6) mg/dL Total Bilirubin 4.0 H (0.0-1.0) mg/dL Direct Bilirubin 2.5 H (0.0-0.5) mg/dL AST 314 H (5-31) U/L ALT 577 H (0-31) U/L Alkaline Phosphatase 290 H (39-117) U/L Total Protein 7.4 (6.5-8.0) g/dL Albumin 4.2 (3.5-5.0) g/dL Lipase 114 H (8-78) U/L COVID-19 (JODI) Negative (Negative) COVID-19 Clin Com See Note 07/03/22 07/03/22 Range/Units 03:37 03:37 WBC (4.8-10.8) X10*3/uL RBC (4.20-5.50) X10*6/uL Hgb (12.0-16.0) g/dl Hct (37.0-47.0) % MCV (80.0-98.0) fL MCH (27.0-33.0) pg MCHC (31.0-35.0) g/dl RDW (11.0-16.0) % Plt Count (160-400) X10*3/uL MPV (9.4-12.3) fL Immature Gran % (Auto) (0.0-0.4) % Neut % (Auto) (45-73) % Lymph % (Auto) (20-40) % Harding % (Auto) (2-11) % Eos % (Auto) (0-4) % Baso % (Auto) (0-2) % Lymph # (Auto) (1.2-4.9) X10*3/uL Harding # (Auto) (0.1-1.2) X10*3/uL Eos # (Auto) (0.0-0.4) X10*3/uL Baso # (Auto) (0.0-0.2) X10*3/uL Abs Immat Gran (auto) (0.00-0.03) X10*3/uL Absolute Neuts (auto) (2.0-8.3) x10*3/uL Absolute Nucleated RBC (0.0-0.012) X10*3/uL Nucleated RBC % (auto) (0.0-0.2) /100WBC PT 12.0 (10.0-13.1) SEC INR 1.0 (0.9-1.1) Sodium (135-145) mmol/L Potassium (3.3-5.1) mmol/L Chloride (96-108) mmol/L Carbon Dioxide (22-29) mmol/L Anion Gap (12-20) BUN (9-16) mg/dL Creatinine (0.5-1.4) mg/dL Estim Creat Clear Calc Estimated GFR Random Glucose (60-115) mg/dL Lactic Acid 1.1 (0.5-2.0) mmol/L Calcium (8.4-10.2) mg/dL Magnesium (1.6-2.6) mg/dL Total Bilirubin (0.0-1.0) mg/dL Direct Bilirubin (0.0-0.5) mg/dL AST (5-31) U/L ALT (0-31) U/L Alkaline Phosphatase (39-117) U/L Total Protein (6.5-8.0) g/dL Albumin (3.5-5.0) g/dL Lipase (8-78) U/L COVID-19 (JODI) (Negative) COVID-19 Clin Com Radiology Impression Discussion of test interpretation with radiology: I have reviewed the radiologist's reading. Radiologist Impression: FINDINGS: LUNG BASES: No focal consolidation.? LIVER, GALLBLADDER, AND BILIARY TREE: Liver normal in size. No focal liver lesions. Transhepatic external biliary drain is present, with distal end coiling in the distal transverse duodenum previously seen intrauterine extrahepatic biliary duct dilatation is improved. Gallbladder contracted.? PANCREAS: Known mass in the pancreatic head redemonstrated with upstream dilatation of the pancreatic duct.? SPLEEN: Unremarkable.? ADRENAL GLANDS: Unremarkable.? KIDNEYS AND URETERS: The kidneys are normal in size, shape, and attenuation. No hydronephrosis, hydroureter, or calculi seen. No perinephric stranding. ? BLADDER: Unremarkable.? GASTROINTESTINAL TRACT: Scattered left colonic diverticula. No evidence of diverticulitis. Moderate stool within the right and transverse colon. Small sliding-type hiatal hernia. Small bowel unremarkable. Normal appendix.? ABDOMINAL WALL: No significant hernia is appreciated.? LYMPH NODES: Normal. VASCULAR: Aorta is atherosclerotic. PELVIC VISCERA: Unremarkable.? OSSEOUS STRUCTURES: No acute or suspicious osseous abnormalities.? CT/CT abdomen pelvis wo IV con IMPRESSION: *? Improved intra-axial hepatic biliary dilatation with transhepatic external biliary catheter now terminating in the transverse duodenum. *? Gallbladder physiologically contracted.? ? ? Discharge Plan Discharge Clinical Impression: Chronic pain due to neoplasm Patient Disposition: Home, Self-Care Instructions: Chronic Pain (ED) Additional Instructions: Please follow-up with your primary care physician tomorrow. If you have any worsening or new symptoms, please return to the emergency room or call 911 Prescriptions: New oxycodone 5 mg tablet 5 mg PO Q8H PRN (Reason: pain) Qty: 7 0RF Rx Instructions: Partial Fill upon patient request. polyethylene glycol 3350 [Miralax] 17 gram/dose powder 17 g PO DAILY PRN (Reason: constipation) Qty: 119 0RF No Action metoprolol succinate 25 mg tablet extended release 24 hr 25 mg PO DAILY Qty: 90 2RF
[2022-07-03 03:56] LABS: Lactic Acid 1.1 mmol/L (0.5-2.0)
[2022-07-03 04:02] LABS: Alanine Aminotransferase 577 U/L (0-31); Albumin Level 4.2 g/dL (3.5-5.0); Alkaline Phosphatase 290 U/L (39-117); Anion Gap 15 (12-20); Aspartate Amino Transferase 314 U/L (5-31); Bilirubin Direct 2.5 mg/dL (0.0-0.5); Blood Urea Nitrogen 17 mg/dL (9-16); Calcium 9.7 mg/dL (8.4-10.2); Carbon Dioxide 22 mmol/L (22-29); Chloride 104 mmol/L (96-108); Creatinine Clr Calc Pharmacy 57.5; Estimated Glomerular Filt Rate > 60; Glucose Random 159 mg/dL (60-115); Lipase 114 U/L (8-78); Magnesium 1.7 mg/dL (1.6-2.6); Potassium 3.9 mmol/L (3.3-5.1); Sodium 137 mmol/L (135-145); Total Protein 7.4 g/dL (6.5-8.0)
[2022-07-03 04:08] LABS: COVID-19 Test Negative (Negative)
[2022-07-03 04:23] VITALS: BP 165/75; PULSE 85; RESP 20; TEMP 37; O2SAT 96
--- NOTE | 2022-07-03 04:56 | PC.NURSE ---
PT reports 9/10 right sided neck and abd pain. IV established, labs sent, meds given as documented.
--- NOTE | 2022-07-03 06:02 | PC.NURSE ---
This telegraphic typewriter operator assumed care of this PT at 0300.
[2022-07-03 07:39] VITALS: BP 141/73; RESP 18; TEMP 37.1; O2SAT 95
== END 2022-07-03 09:16 | disposition home or self-care (01) ==
PROVIDERS: Emergency Provider Emergency Medicine; PCP Internal Medicine
DX: R10.31 Right lower quadrant pain (principal); G89.3 Neoplasm related pain (acute) (chronic); Z20.822 Contact with and (suspected) exposure to COVID-19; Z79.899 Other long term (current) drug therapy
CPT/HCPCS: 36415; 74176; 80048; 80076; 83605; 83690; 83735; 85025; 85610; 87040; 87635; 96361; 96374; 99284; J2270

== ENCOUNTER 2022-07-31 11:51 | Outpatient (REF) | payer MEDICARE, SELFPAY ==
--- NOTE | ~2022-07-31 | PE_ITS ---
Indication: Pancreatic cancer EXAMINATION: Whole body PET/CT imaging. Dedicated coincidence imaging from the base of the skull to the thighs. Comparison previous abdominal pelvic CT dated 07/03/2022. Chest CT dated 09/24/2020 17.1 mCi F-18 deoxyglucose. Findings; Partially visualized brain activity is felt to be within normal limits. Neck activity is felt to be unremarkable. In the chest activity in the subcarinal region in the area of fullness. Measures 3.3 SUV max. This could be reactive. Malignancy needs to be considered. Infrahilar right hilar region show some mild increased activity at 2.8 SUV max. Again this could be reactive but underlying malignancy of course needs to be considered. Attention to follow-up. In the lung whitley there is a 7 mm nodule in the right upper lung but that she showing no suspicious activity. I believe this nodularity was present on previous CT scan of 2009. Some mild atelectasis likely present in the right upper lung medially showing no significant uptake. Mild uptake here 1.7 SUV max. Baseline in the lungs 1 SUV max. Left lung; Mild groundglass change in the left upper lung. No significant uptake. Attention to follow-up. Upper abdomen; There is some uptake in the skin and the right flank with adjacent soft tissue change. This may represent surgical manipulation. There is some uptake within the adjacent rib and also the liver in the same region. Again this may be the sequela of surgical manipulation. Underlying lesion of course cannot be completely excluded. Otherwise normal liver and splenic uptake. There is uptake in the body of the pancreas. Suspicious for tumor. 7.8 SUV max. Some uptake associated with the stent immediately adjacent 6.4 SUV max. Would be suspicious for tumor. Differential would include inflammatory etiology. Otherwise there is low-level normal bowel activity. Normal renal and bladder activity is seen. No suspicious uptake within the bones. PET/PET CT fusion skull to thigh IMPRESSION: In the chest mild uptake in the subcarinal region and infrahilar region on the right. While this could be reactive malignancy of course cannot be completely excluded. Attention to follow-up. Otherwise findings lung whitley are likely chronic and or inflammatory in etiology. Again attention to follow-up In the abdomen pelvis as described some uptake in the right upper quadrant consistent with surgical manipulation when CT from 07/03/2022 is reviewed. There is however abnormal uptake in the head of the pancreas as described and abnormal uptake associated with the stent within the common duct. Suspicious for tumor. Examination is otherwise felt to be unremarkable.
== END 2022-07-31 11:52 | disposition home or self-care (01) ==
LOC: HO.PET 11:51
PROVIDERS: Visit Provider Internal Medicine Medical Oncology
DX: Z13.89 Encounter for screening for other disorder (principal)

== ENCOUNTER 2022-08-21 14:40 | Outpatient (REF) | payer MEDICARE, SELFPAY ==
[2022-08-21 15:54] LABS: Alanine Aminotransferase 24 U/L (0-31); Alkaline Phosphatase 104 U/L (39-117); Anion Gap 14 (12-20); Aspartate Amino Transferase 28 U/L (5-31); Bilirubin Total 1.1 mg/dL (0.0-1.0); Blood Urea Nitrogen 15 mg/dL (9-16); Calcium 9.3 mg/dL (8.4-10.2); Carbon Dioxide 28 mmol/L (22-29); Chloride 104 mmol/L (96-108); Estimated Glomerular Filt Rate > 60; Glucose Random 147 mg/dL (60-115); Potassium 4.6 mmol/L (3.3-5.1); Sodium 141 mmol/L (135-145); Total Protein 6.9 g/dL (6.5-8.0)
== END 2022-08-21 14:41 | disposition home or self-care (01) ==
LOC: HO.LAB 14:40
PROVIDERS: PCP Internal Medicine; Visit Provider Internal Medicine Medical Oncology
DX: K86.89 Other specified diseases of pancreas (principal)
CPT/HCPCS: 36415; 80053

== ENCOUNTER 2022-08-22 11:18 | Outpatient (REF) | payer MEDICARE, SELFPAY ==
--- NOTE | ~2022-08-22 | CT_ITS ---
EXAMINATION: CT CHEST WITH CONTRAST CLINICAL INFORMATION: Abnormal hilar uptake on PET CT scan. History of pancreatic cancer. COMPARISON: Previous PET/CT scan 07/31/2022 and previous chest x-ray and chest CT from 2009 TECHNIQUE: Multidetector volumetric CT imaging of the chest was obtained after the administration of 65 mL of Omnipaque 350 intravenous contrast without immediate adverse reactions. Axial MIP volume rendering provided. Sagittal and coronal reformatted images were obtained. This CT examination was performed using dose optimization techniques as appropriate, variously including the following: *Automated exposure control *Adjustment of mA and/or kV according to patient size (this includes techniques or standardized protocols for targeted exams where dose is matched to indication/reason for exam; i.e. extremities or head) *Use of iterative reconstruction technique DLP: 88 mGy-cm FINDINGS: LUNGS: Mild pleural and parenchymal scarring. 7 mm right upper lobe nodule axial image 27 series 5. This is stable from September [address] axial image 193 series 2 and therefore probably benign. Mild focal bronchiectasis and subsegmental atelectasis or scarring in the right middle lobe. This is stable from prior 2010 CT scan. 3 mm peripheral or subpleural left lower lobe nodule axial image 154 series 5. This is difficult to compare with previous chest CT September 2009 due to left lower lobe consolidation and effusion on 2010 CT. MEDIASTINUM: Small 5 mm right thyroid nodule. No imaging follow-up recommended. Small calcified and noncalcified mediastinal and bilateral hilar lymph nodes. No enlarged lymph nodes. Normal heart size. No pericardial effusion. Normal caliber thoracic aorta. Replaced right subclavian artery. Normal-appearing esophagus. PLEURA: There is no pleural effusion. No pleural mass or thickening. Small bilateral posterior diaphragmatic hernias containing fat. AXILLA: No lymphadenopathy. UPPER ABDOMEN: Fatty liver. Pneumobilia. Wallstent in the common bile duct partially visualized. Marked dilatation of the main pancreatic duct. OSSEOUS STRUCTURES: Degenerative changes of the spine. CT/CT chest w IV con IMPRESSION: No suspicious pulmonary findings. Stable 7 mm right upper lobe nodule and focal bronchiectasis in the right middle lobe. 3 mm peripheral or subpleural left lower lobe nodule difficult to compare with [address] follow-up as per protocol. Fleischner guidelines were followed.
[2022-08-22] MEDS: iohexoL 350 MG/ML 100 ML INFUS..BTL IV (11:56)
== END 2022-08-22 11:19 | disposition home or self-care (01) ==
LOC: HO.CT 11:18
PROVIDERS: PCP Internal Medicine; Visit Provider Internal Medicine Medical Oncology
DX: R94.2 Abnormal results of pulmonary function studies (principal)
CPT/HCPCS: 71260; Q9967

== ENCOUNTER 2022-11-02 09:29 | Outpatient (REF) | payer MEDICARE, SELFPAY ==
[2022-11-02 09:46] LABS: MANUAL DIFF FLAG NO
[2022-11-02 10:05] LABS: Hematocrit 38.3 % (37.0-47.0); Hemoglobin 12.1 g/dl (12.0-16.0); Mean Corpuscular HGB Conc 31.6 g/dl (31.0-35.0); Mean Corpuscular Hemoglobin 28.9 pg (27.0-33.0); Mean Corpuscular Volume 91.6 fL (80.0-98.0); Mean Platelet Volume 9.7 fL (9.4-12.3); Platelet Count 269 X10*3/uL (160-400); Red Blood Count 4.18 X10*6/uL (4.20-5.50); Red Cell Distribution Width 14.2 % (11.0-16.0); White Blood Count 4.3 X10*3/uL (4.8-10.8)
[2022-11-02 10:06] LABS: Basophils Percent Auto 0.9 % (0-2); Eosinophils Absolute Auto 0.3 X10*3/uL (0.0-0.4); Eosinophils Percent Auto 5.8 % (0-4); Imm Gran Abs Auto 0.01 X10*3/uL (0.00-0.03); Imm Gran Pct Auto 0.2 % (0.0-0.4); Lymphocytes Absolute Auto 1.7 X10*3/uL (1.2-4.9); Lymphocytes Percent Auto 39.9 % (20-40); Monocytes Absolute Auto 0.5 X10*3/uL (0.1-1.2); Monocytes Percent Auto 11.1 % (2-11); Neutrophils Absolute Auto 1.8 x10*3/uL (2.0-8.3); Neutrophils Percent Auto 42.1 % (45-73)
[2022-11-02 11:06] LABS: Alanine Aminotransferase 25 U/L (0-31); Albumin Level 4.1 g/dL (3.5-5.0); Alkaline Phosphatase 108 U/L (39-117); Anion Gap 12 (12-20); Aspartate Amino Transferase 35 U/L (5-31); Bilirubin Total 1.2 mg/dL (0.0-1.0); Blood Urea Nitrogen 8 mg/dL (9-16); Calcium 9.6 mg/dL (8.4-10.2); Carbon Dioxide 25 mmol/L (22-29); Chloride 106 mmol/L (96-108); Cholesterol 188 mg/dL; Estimated Glomerular Filt Rate > 60; Glucose Fasting 103 mg/dL (60-99); HDL Cholesterol 39 mg/dL; LDL Cholesterol Calculated 127 mg/dl; Potassium 3.9 mmol/L (3.3-5.1); Sodium 139 mmol/L (135-145); Total Protein 6.9 g/dL (6.5-8.0); Triglycerides 114 mg/dL
[2022-11-02 11:25] LABS: Vitamin D 25-OH Total 43.6 ng/mL (>30)
== END 2022-11-02 09:30 | disposition home or self-care (01) ==
LOC: HO.LAB 09:29
PROVIDERS: PCP Internal Medicine; Visit Provider Internal Medicine
DX: I10 Essential (primary) hypertension (principal); E78.5 Hyperlipidemia, unspecified; C25.9 Malignant neoplasm of pancreas, unspecified; M85.89 Other specified disorders of bone density and structure, multiple sites; Z90.410 Acquired total absence of pancreas; Z90.49 Acquired absence of other specified parts of digestive tract
CPT/HCPCS: 36415; 80053; 80061; 82306; 85025

== ENCOUNTER 2022-12-14 08:45 | Day surgery (SDC) | payer MEDICARE, SELFPAY ==
--- NOTE | ~2022-12-14 | IR_ITS ---
PROCEDURE: IR INSERTION OF TUNNEL CATHETER CLINICAL INFORMATION: Pancreatic cancer. Technique: All elements of maximal sterile barrier technique followed including use of cap, mask, sterile gown, sterile gloves, a sterile full body drape and hand hygiene. Also followed skin preparation with 2% chlorhexidine for cutaneous antisepsis, and sterile ultrasound preparation with sterile gel and probe cover when applicable. The right neck and chest were prepped and draped in the usual sterile fashion. The skin and soft tissues were anesthetized with 1% lidocaine plain. Using ultrasound guidance and a 5 [place] micropuncture system, right internal jugular vein access was obtained. Over an 018 wire, a 5 [place] dilator was positioned in the SVC. The skin and soft tissues of the right upper anterior chest were anesthetized with 1% lidocaine. A small incision was made. A subcutaneous pocket was created using blunt dissection. Subcutaneous tunnel from the chest to the neck incision was anesthetized with 1% lidocaine plain. Using a tunneler, a 5.8 [place] single-lumen catheter was tunneled from the chest to the neck incision. The catheter was attached to the port. The port and catheter were flushed. The port was positioned in the subcutaneous pocket and secured using 220 nonabsorbable sutures. An 035 guidewire was advanced through the 5-[place] dilator into the IVC. The 5 [place] dilator was exchanged for a 6 [place] peel-away sheath. Using bent wire technique, catheter length was estimated and the catheter was cut. Catheter length is 21 cm. Catheter was fed centrally through the peel-away sheath. Catheter tip is at the cavoatrial junction. The neck incision was closed using a 4-0 absorbable subcuticular suture. The chest incision was closed using four 3-0 absorbable interrupted sutures followed by a running 4-0 absorbable subcuticular suture. Real-time ultrasound guidance was used to document vein patency and for needle entry. A formal ultrasound picture was recorded. 1 saved fluoroscopic image. The patient received Versed 1 mg and fentanyl 50 mcg during the procedure. Total sedation time was 35minutes. Conscious sedation was provided by a registered nurse under my direct supervision using continuous hemodynamic monitoring. Fluoroscopy time: 0.2 minutes DAP: 15 cGy-cm squared 1 saved fluoroscopic image. COMPARISON: None available. FINDINGS: There is a right upper extremity 6.6 [place] single-lumen dignity Port-A-Cath tip projecting over the cavoatrial junction. IR/IR cvc insert tunnel w prt/program director cable television IMPRESSION: Right upper extremity 6.6 [place] single-lumen dignity Port-A-Cath placement.
--- NOTE | ~2022-12-14 | IR_ITS ---
PROCEDURE: IR INSERTION OF TUNNEL CATHETER CLINICAL INFORMATION: Pancreatic cancer. Technique: All elements of maximal sterile barrier technique followed including use of cap, mask, sterile gown, sterile gloves, a sterile full body drape and hand hygiene. Also followed skin preparation with 2% chlorhexidine for cutaneous antisepsis, and sterile ultrasound preparation with sterile gel and probe cover when applicable. The right neck and chest were prepped and draped in the usual sterile fashion. The skin and soft tissues were anesthetized with 1% lidocaine plain. Using ultrasound guidance and a 5 [place] micropuncture system, right internal jugular vein access was obtained. Over an 018 wire, a 5 [place] dilator was positioned in the SVC. The skin and soft tissues of the right upper anterior chest were anesthetized with 1% lidocaine. A small incision was made. A subcutaneous pocket was created using blunt dissection. Subcutaneous tunnel from the chest to the neck incision was anesthetized with 1% lidocaine plain. Using a tunneler, a 5.8 [place] single-lumen catheter was tunneled from the chest to the neck incision. The catheter was attached to the port. The port and catheter were flushed. The port was positioned in the subcutaneous pocket and secured using 220 nonabsorbable sutures. An 035 guidewire was advanced through the 5-[place] dilator into the IVC. The 5 [place] dilator was exchanged for a 6 [place] peel-away sheath. Using bent wire technique, catheter length was estimated and the catheter was cut. Catheter length is 21 cm. Catheter was fed centrally through the peel-away sheath. Catheter tip is at the cavoatrial junction. The neck incision was closed using a 4-0 absorbable subcuticular suture. The chest incision was closed using four 3-0 absorbable interrupted sutures followed by a running 4-0 absorbable subcuticular suture. Real-time ultrasound guidance was used to document vein patency and for needle entry. A formal ultrasound picture was recorded. 1 saved fluoroscopic image. The patient received Versed 1 mg and fentanyl 50 mcg during the procedure. Total sedation time was 35minutes. Conscious sedation was provided by a registered nurse under my direct supervision using continuous hemodynamic monitoring. Fluoroscopy time: 0.2 minutes DAP: 15 cGy-cm squared 1 saved fluoroscopic image. COMPARISON: None available. FINDINGS: There is a right upper extremity 6.6 [place] single-lumen dignity Port-A-Cath tip projecting over the cavoatrial junction. IR/IR us guide venous access IMPRESSION: Right upper extremity 6.6 [place] single-lumen dignity Port-A-Cath placement.
[2022-12-14 09:10] VITALS: BMI 21.5
[2022-12-14 09:23] LABS: MANUAL DIFF FLAG NO
[2022-12-14 09:32] LABS: Basophils Percent Auto 0.4 % (0-2); Eosinophils Percent Auto 0.8 % (0-4); Hematocrit 38.4 % (37.0-47.0); Hemoglobin 12.4 g/dl (12.0-16.0); Imm Gran Abs Auto 0.02 X10*3/uL (0.00-0.03); Imm Gran Pct Auto 0.4 % (0.0-0.4); Lymphocytes Absolute Auto 1.3 X10*3/uL (1.2-4.9); Lymphocytes Percent Auto 26.1 % (20-40); Mean Corpuscular HGB Conc 32.3 g/dl (31.0-35.0); Mean Corpuscular Hemoglobin 29.5 pg (27.0-33.0); Mean Corpuscular Volume 91.2 fL (80.0-98.0); Monocytes Absolute Auto 0.1 X10*3/uL (0.1-1.2); Monocytes Percent Auto 1.6 % (2-11); Neutrophils Absolute Auto 3.4 x10*3/uL (2.0-8.3); Neutrophils Percent Auto 70.7 % (45-73); Platelet Count 211 X10*3/uL (160-400); Red Blood Count 4.21 X10*6/uL (4.20-5.50); Red Cell Distribution Width 13.5 % (11.0-16.0); White Blood Count 4.9 X10*3/uL (4.8-10.8)
[2022-12-14 09:51] LABS: Prothrombin Time 10.9 SEC (10.0-13.1)
[2022-12-14 09:54] LABS: Partial Thromboplastin Time 31.6 SEC (26.0-36.4)
[2022-12-14 12:30] VITALS: BP 161/88; PULSE 72; RESP 16; TEMP 37.7; O2SAT 99
[2022-12-14 12:45] VITALS: BP 138/71; PULSE 71; RESP 18; O2SAT 96
[2022-12-14 13:00] VITALS: BP 125/63; PULSE 71; RESP 18; TEMP 36.9; O2SAT 97
== END 2022-12-14 13:16 | disposition home or self-care (01) ==
LOC: HO.SSS 08:45
PROVIDERS: Radiology Diagnostic Radiology; PCP Internal Medicine; Visit Provider Radiology Diagnostic Radiology
DX: Z45.2 Encounter for adjustment and management of vascular access device (principal); C25.9 Malignant neoplasm of pancreas, unspecified; Z85.3 Personal history of malignant neoplasm of breast; I10 Essential (primary) hypertension; E78.5 Hyperlipidemia, unspecified; M85.80 Other specified disorders of bone density and structure, unspecified site; Z79.899 Other long term (current) drug therapy; Z88.0 Allergy status to penicillin
CPT/HCPCS: 36415; 36561; 76937; 85025; 85610; 85730; 99152; 99153; C1769; C1788; J0690; J1642; J2250; J3010

== ENCOUNTER 2022-12-21 06:19 | Outpatient (REF) | payer MEDICARE, SELFPAY ==
--- NOTE | ~2022-12-21 | CT_ITS ---
EXAMINATION: CT CHEST WITH CONTRAST CT ABDOMEN AND PELVIS WITH CONTRAST CLINICAL INFORMATION: Pancreatic cancer post Whipple procedure. COMPARISON: Previous abdominal and pelvic CT June 2022, PET/CT July [address] August 2022. TECHNIQUE: Axial images through the chest, abdomen and pelvis following oral and 85 mL of Omnipaque 350 IV contrast. Sagittal and coronal reconstructions on the technologist workstation were performed. This CT examination was performed using dose optimization techniques as appropriate, variously including the following: *Automated exposure control *Adjustment of mA and/or kV according to patient size (this includes techniques or standardized protocols for targeted exams where dose is matched to indication/reason for exam; i.e. extremities or head) *Use of iterative reconstruction technique FINDINGS: CHEST: There is a 7 mm right upper lobe nodule axial image 71 series 5 that is stable. A 3 mm left lower lobe nodule axial image 331 series 5 that is stable. Mild focal bronchiectasis and scarring in the right middle lobe is stable. Minimal scarring or subsegmental atelectasis in the left lower lobe that is stable. Replaced right subclavian artery. Right jugular port with tip in the SVC. The mediastinum is otherwise normal. Mild coronary artery calcification. No pleural effusion or pneumothorax. No chest wall mass. No axillary adenopathy. ABDOMEN AND PELVIS: Pneumobilia. No biliary duct dilatation. The gallbladder has been removed. Question tiny low-attenuation in the posterior segment of the right lobe of the liver 3 mm axial image 15 series 3. Attention on follow-up recommended. New postsurgical changes following Whipple procedure. Stent in the body and tail of the pancreas. The pancreas is otherwise normal. New prominent aortocaval lymph node measuring 1 cm in short axis axial image 25 series 3. There are smaller small bowel mesentery lymph nodes for example axial image 34 series 3. There is also increased soft tissue seen anterior to the SMV measuring 1.4 x 1.8 cm axial image 28 series 3, coronal reconstructed image 27 and sagittal reconstructed image 56. It is uncertain whether this is related to unopacified small bowel or represents a lymph node or peritoneal disease. Constipation and diverticulosis. Postsurgical changes to the stomach and small bowel following Whipple procedure. Normal appendix. No ascites. No hernia. Atherosclerotic disease. No aneurysm. Normal uterus, adnexa and bladder. Review of bone windows demonstrates degenerative changes of the spine. No fracture or suspicious bone lesion is seen. CT/CT abdomen pelvis w IV con IMPRESSION: CHEST: Stable small pulmonary nodules. No new pulmonary nodule. ABDOMEN AND PELVIS: New postsurgical changes following Whipple procedure. New upper-normal size aortocaval lymph node. 1.4 x 1.8 cm increased soft tissue anterior to the SMV. It is uncertain whether this represents an enlarged lymph node, peritoneal disease or unopacified loop of small bowel. Attention on follow-up recommended.
[2022-12-21] MEDS: iohexoL 350 MG/ML 100 ML INFUS..BTL IV (10:54)
[2022-12-21] MEDS: Barium Sulfate Oral (Berry) 450 ML ORAL.SUSP 900 ML PO (10:55)
== END 2022-12-21 06:20 | disposition home or self-care (01) ==
LOC: HO.CT 06:19
PROVIDERS: PCP Internal Medicine; Visit Provider Internal Medicine Medical Oncology
DX: C25.9 Malignant neoplasm of pancreas, unspecified (principal)
CPT/HCPCS: 71260; 74177; Q9967

== ENCOUNTER 2023-03-21 09:20 | Outpatient (AMB) | payer MEDICARE, SELFPAY ==
--- NOTE | 2023-03-21 09:22 | A.OFFVIS_ITS ---
Intake Vital Signs 3 03/21/23 09:30 Height 5 ft 5 in Weight 129 lb 8 oz BMI 21.5 BP 146/67 H Blood Pressure Location Lt brachial Position Sitting Pulse 87 Intake Visit Reasons: Yearly Breast Exam Intake Note: Patient is seen in office for yearly breast exam. 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 Benson returning for breast cancer follow-up. She was diagnosed with DCIS the left breast in 2011 and underwent lumpectomy on 03/27/2012. Pathology revealed DCIS intermediate to high nuclear grade, ER positive, HI positive with a small focus questionable for microinvasion. She completed radiation therapy and then was placed on tamoxifen for approximately 2 months. This was followed by raloxifene for another 6 months until stopped in December 2012. She feels well and denies any breast symptoms in either breast. She denies any family history of breast cancer. Last mammogram dated 04/12/2022 revealed no mammographic evidence of malignancy (BI-RADS 2).Patient was diagnosed with adenocarcinoma the pancreas and underwent a Whipple procedure. She is currently undergoing chemotherapy every other week. She reports having a good appetite but is losing weight. She denies any new breast symptoms. She has not yet scheduled a follow-up here early mammogram. She complains of 2 skin cyst 1 located over the sternum in the mid chest and a 2nd located over the right upper back. She would like both lesions excise. She also has a lump that she notes in the right groin which occasionally increases in size and occasionally causes some minor discomfort. [facility] Medical History Adenocarcinoma of pancreas Osteoarthritis of both sacroiliac joints Osteoarthritis of hips, bilateral Osteopenia of multiple sites Ductal carcinoma in situ of left breast Dyslipidemia Essential hypertension H/O cyst of breast Surgical History History of pancreatectomy (09/26/22) H/O Whipple procedure History of eyelid surgery Hx of tonsillectomy History of cataract surgery Status post left breast lumpectomy H/O colonoscopy Family History Father No problems noted. Mother No problems noted. Sister H/O thyroid disease Cancer Social History Household Members: Significant Other Housing: House Are you a primary progressive care manager to a significant other at home: No Do you presently have visiting nurse or other home services: Yes (3x a week) Alcohol intake: never Patient Tobacco Use Status: Never used Tobacco e-Cigarette/Vaping Use: Never Used Second Hand Smoke Exposure: No Advance Directives Date on File: 06/19/22 service: No Current occupational status: retired Cognitive needs: No Hearing needs: No Vision needs: No Review of Systems Const All systems reviewed & are unremarkable except as noted in HPI and below Denies anorexia, Denies chills, Denies headache(s) and Denies night sweats ENT Denies headache(s) Card Denies chest pain, Denies rapid heart rate, Denies irregular heart rhythm and Denies dyspnea on exertion Resp Denies cough, Denies hemoptysis and Denies dyspnea on exertion GI Denies abdominal pain, Denies constipation and Denies diarrhea Denies nipple discharge Skin/Breast Denies breast swelling, Denies breast skin changes, Denies breast pain, Denies breast mass and Denies nipple discharge Neuro Denies headache(s) Mansoor/Lymph Denies lymphadenopathy Physical Exam Const General: healthy appearing, well developed, alert and awake Nutritional Appearance: well nourished Orientation/consciousness: patient oriented x3 Limitations: no limitations Neck Neck: Yes no lymphadenopathy and Yes no JVD Chest Other: Left breast: No skin change, no nipple retraction, no nipple discharge, no palpable mass, no enlarged lymph nodes. Well-healed incision in the upper inner quadrant with slight volume loss but below the incision. No palpable mass is appreciated and no overlying skin changes are noted. Right breast: No skin change, no nipple retraction, no nipple discharge, no palpable mass, no enlarged lymph nodes Chest/axillae images: 2 1. 1 cm epidermal inclusion cyst mid sternum, no evidence of infection Resp Effort & Inspection: normal respiratory effort Auscultation: clear to auscultation bilaterally GI Other: Upper midline incision and several trocar incisions on the right side well- healed without evidence of infection or hernia. Examination the right groin however reveals a small area of swelling which increases minimally with Valsalva maneuvers. This is located approximately below the inguinal canal and may represent a femoral hernia or a low-lying inguinal hernia. Inspection: Yes normal to inspection Abdomen image: 2 1. Area of swelling right groin Back/Spine/Pelvis Back/spine/pelvis image: 2 1. 1 cm epidermal inclusion cyst with bluish discoloration over the right upper back, no evidence of infection Skin General skin exam: no rashes or lesions noted and dry skin Neuro General: patient oriented x3 Extrem General: Yes no clubbing, cyanosis or edema Assessment & Plan Assessment & Plan (1) DCIS (ductal carcinoma in situ): Code(s): D05.10 - Intraductal carcinoma in situ of unspecified breast Qualifiers: Laterality: left Qualified Code(s): D05.12 - Intraductal carcinoma in situ of left breast (2) Ductal carcinoma in situ of left breast: Code(s): D05.12 - Intraductal carcinoma in situ of left breast (3) Epidermal inclusion cyst: Code(s): L72.0 - Epidermal cyst (4) Inguinal hernia: Code(s): K40.90 - Unilateral inguinal hernia, without obstruction or gangrene, not specified as recurrent Qualifiers: Obstruction and gangrene presence: without obstruction or gangrene L aterality: unilateral Recurrence: non-recurrent Qualified Code(s): K40.90 - Unilateral inguinal hernia, without obstruction or gangrene, not specified as recurrent Plan 82-year-old female patient approximately 10 years following diagnosis of ductal carcinoma of the left breast status post lumpectomy followed by radiation therapy. She feels well and denies any ongoing breast symptoms. Examination today reveals no evidence of recurrence disease. She was diagnosed with pancreatic cancer and underwent a Whipple procedure. Her most recent mammogram of 04/12/2022 revealed no mammographic evidence of malignancy. Will be due for mammogram in April 2023. She should return to our office in approximately 1 year but is welcome to call sooner for any concerns. Patient also has several epidermal inclusion cyst 1 located in the anterior chest a 2nd located in the right upper back. Both are approximately 1 cm in diameter and noninfected. She would like to have both lesions excised. This can be performed under local anesthesia in the office. After discussion of the procedure, risks, and alternatives, she consents to the procedure. She also has a small right inguinal or femoral hernia. On examination and appears quite small and reducible. This certainly could be repaired however as she is currently undergoing chemotherapy and may be best to hold off at this time. She will return for follow-up breast examination 1 year. Orders: Orders 2 MM screening mammo BI 04/15/23 D05.10 - Intraductal carcinoma in situ of unspecified breast Coding Level of Care Code Est Pt Level 4 (13852) Diagnoses Ductal carcinoma in situ (DCIS) of left breast D05.12 Laterality: left Ductal carcinoma in situ of left breast D05.12 Epidermal inclusion cyst L72.0 Non-recurrent unilateral inguinal hernia without obstruction or gangrene K40.90 Obstruction and gangrene presence: without obstruction or gangrene Laterality: unilateral Recurrence: non-recurrent
[2023-03-21 09:30] VITALS: BP 146/67; PULSE 87; BMI 21.5
== END 2023-03-21 09:43 | disposition home or self-care (01) ==
PROVIDERS: PCP Internal Medicine; Visit Provider Surgery
DX: D05.12 Intraductal carcinoma in situ of left breast (principal); L72.0 Epidermal cyst; K40.90 Unilateral inguinal hernia, without obstruction or gangrene, not specified as recurrent
CPT/HCPCS: 99214

== ENCOUNTER → 2023-03-21 09:20 | Outpatient (BNVA) | payer MEDICARE, SELFPAY | PROVIDERS: PCP Internal Medicine; Visit Provider Surgery | DX: D05.12 Intraductal carcinoma in situ of left breast (principal); L72.0 Epidermal cyst; K40.90 Unilateral inguinal hernia, without obstruction or gangrene, not specified as recurrent | CPT/HCPCS: 99212 ==

== ENCOUNTER 2023-04-09 15:06 | Outpatient (REF) | payer MEDICARE, SELFPAY | END 2023-04-09 15:07 | disposition home or self-care (01) | LOC: HO.LNP 15:06 | PROVIDERS: PCP Internal Medicine; Visit Provider Surgery | DX: L72.0 Epidermal cyst (principal) | CPT/HCPCS: 11402; 88304 ==

== ENCOUNTER 2023-04-09 15:06 | Outpatient (AMB) | payer MEDICARE, SELFPAY ==
[2023-04-09 15:21] VITALS: BP 140/80; BMI 21.7
--- NOTE | 2023-04-09 15:21 | MHC.OFFVIS ---
Intake Vital Signs 04/09/23 15:21 Height 5 ft 5 in Weight 130 lb 4 oz BMI 21.7 BP 140/80 H Blood Pressure Location Lt brachial Position Sitting Intake Visit Reasons: excision of back & chest cyst Intake Note: Patient is seen in office for excision of back and chest cyst. 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 She denies any changes since her previous evaluation. 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 Mother No problems noted. Sister H/O thyroid disease Cancer Social History Household Members: Significant Other Housing: House Are you a primary managed care manager to a significant other at home: No Do you presently have visiting nurse or other home services: Yes (3x a week) Alcohol intake: never Patient Tobacco Use Status: Never used Tobacco e-Cigarette/Vaping Use: Never Used Second Hand Smoke Exposure: No Advance Directives Date on File: 06/19/22 service: No Current occupational status: retired Cognitive needs: No Hearing needs: No Vision needs: No Physical Exam Vital Signs: Last Vital Signs BP 140/80 H 04/09/23 15:21 BMI result Body Mass Index 21.7 Office Procedures Excision Details: Preoperative diagnosis: Epidermal inclusion cyst of anterior chest and upper mid back Postoperative diagnosis: Same Procedure: Excision of epidermal inclusion cyst anterior chest and upper mid back Surgeon: Geovany Garrett MD Pyrometer Temperature Regulator: None Anesthesia: Lidocaine 1% with epinephrine Indications for procedure: 82-year-old female patient presenting with an enlarging epidermal inclusion cyst in the anterior chest over the mid sternum. Lesion measures approximately with 1.5 cm with no evidence of infection. A 2nd lesion located in the upper back measuring 1.5 cm as well and also is noninfected. Operative findings: Epidermal inclusion cyst x2 Specimen: Epidermal inclusion cyst x2 Estimated blood loss: 2 mL Complications: None Procedure details: Patient was placed in a supine position. After assuring informed consent and assuring the site of surgery, the skin on the anterior chest was prepped with Betadine and draped in a sterile fashion. Local anesthesia was infiltrated around the sternal lesion circumferentially. An elliptical incision oriented longitudinally was then created. This was carried out through subcutaneous tissue and around the cyst wall. The lesion was completely excised and sent to pathology for further examination. Skin was then closed using interrupted 3-0 nylon sutures. Sterile dressings were then applied. Patient was then placed in a left lateral decubitus position. The skin was prepped with Betadine and draped in a sterile fashion. Local was infiltrated circumferentially around the lesion. Elliptical incision was then created once again around the cyst. This was carried out through subcutaneous tissue and around the cyst wall. Lesion was then excised and sent to pathology for further examination. After assuring adequate hemostasis the dermis was reapproximated using interrupted 3-0 Polysorb sutures. Skin was then closed using interrupted 3-0 nylon sutures. Sterile dressings were then applied. The patient tolerated the procedure well. She was discharged in stable condition. She will return in 1 week for suture removal. 44545-qszcl/arms/legs 1.1-2cm (Lesion of anterior chest measures 1.5 cm) Additional procedure code (CPT) needed (Second lesion of back measures 1.5 cm: 44776) Assessment & Plan Assessment & Plan (1) Epidermal inclusion cyst: Code(s): L72.0 - Epidermal cyst Plan 82-year-old female patient returning today for excision of the anterior chest and back epidermal inclusion cyst. She tolerated the procedure well and will return in 1 week for suture removal. Orders: Orders Surgical 04/09/23 L72.0 - Epidermal cyst Coding Level of Care Code Procedure Only Diagnoses Epidermal inclusion cyst L72.0 CPT Codes Trunk/Arms/Legs - CPT: 57160-sjdco/arms/legs 1.1-2cm ([id number])
== END 2023-04-09 16:01 | disposition home or self-care (01) ==
PROVIDERS: PCP Internal Medicine; Visit Provider Surgery
DX: L72.0 Epidermal cyst (principal)
CPT/HCPCS: 11402

== ENCOUNTER → 2023-04-18 09:56 | Outpatient (BNVA) | payer MEDICARE, SELFPAY | PROVIDERS: PCP Internal Medicine; Visit Provider Surgery | DX: Z48.02 Encounter for removal of sutures (principal) | CPT/HCPCS: 99211 ==

== ENCOUNTER 2023-04-19 12:02 | Outpatient (REF) | payer MEDICARE, SELFPAY ==
--- NOTE | ~2023-04-19 | MM_ITS ---
EXAMINATION: MM SCREENING DIGITAL BREAST TOMOSYNTHESIS, BILATERAL CLINICAL INFORMATION: Screening. Asymptomatic. The patient has a history of surgically treated DCIS diagnosed in 2011. COMPARISON: Mammography: This study is compared with prior exams dating back to 2017. TECHNIQUE: Digital breast tomosynthesis is performed in both the craniocaudal and mediolateral oblique views along with computer-aided detection (CAD). Synthesized 2D images are generated from the tomosynthesis. FINDINGS: The breasts are heterogeneously dense, which may obscure small masses (ACR BI-RADS breast composition Category c). Postsurgical changes are present in the left breast. There are no significant masses, abnormal calcifications, or other abnormalities. MM/MM tomosynthesis screening BI IMPRESSION: No mammographic evidence of malignancy. ASSESSMENT: BI-RADS BI-RADS 2 - Benign Findings RECOMMENDATION: Routine annual mammography screening. 1 year F/U This examination should not preclude the clinical evaluation of a suspicious palpable abnormality. This patient's information was entered into a reminder system with a target due date for their next mammogram.
== END 2023-04-19 12:03 | disposition home or self-care (01) ==
LOC: HO.MAMMO 12:02
PROVIDERS: PCP Internal Medicine; Visit Provider Surgery
DX: Z12.31 Encounter for screening mammogram for malignant neoplasm of breast (principal)
CPT/HCPCS: 77063; 77067

== ENCOUNTER → 2023-04-19 12:15 | Outpatient (BNV) | payer MEDICARE, SELFPAY | PROVIDERS: PCP Internal Medicine; Visit Provider Radiology Diagnostic Radiology | DX: Z12.31 Encounter for screening mammogram for malignant neoplasm of breast (principal) | CPT/HCPCS: 77063; 77067 ==

== ENCOUNTER 2023-04-22 08:26 | Outpatient (REF) | payer MEDICARE, SELFPAY ==
--- NOTE | ~2023-04-22 | CT_ITS ---
EXAMINATION: CT CHEST, ABDOMEN AND PELVIS WITH CONTRAST CLINICAL INFORMATION: Restaging pancreatic cancer status-post Whipple procedure. COMPARISON: Prior CT examinations, most recently 12/21/2022; PET/CT dated 07/31/2022. TECHNIQUE: Multidetector volumetric imaging was performed from the thoracic inlet through the pubic symphysis following administration of 85 mL Omnipaque 350 intravenous contrast. Sagittal and coronal reformatted images were obtained on the technologist workstation. This CT examination was performed using dose optimization techniques as appropriate, variously including the following: *Automated exposure control. *Adjustment of mA and/or kV according to patient size (this includes techniques or standardized protocols for targeted exams where dose is matched to indication/reason for exam, i.e., extremities or head). *Use of iterative reconstruction technique. DLP: 329 mGy-cm. FINDINGS: CHEST: LUNGS: At the posteromedial right apex (5:56), a stable 7 mm noncalcified nodule is seen. At the posterior left base (5:304), a stable (upon remeasurement) 4 mm noncalcified nodule is seen. There is no new nodule, mass, infiltrate or groundglass opacity. There is right middle lobe scar/subsegmental atelectasis, with associated bronchiectasis and no associated focal airway obstruction. No generalized increase is seen in peripheral interlobular septal markings. There is no significant bleb or bullous formation. No small airway thickening is seen. The central airways appear patent. MEDIASTINUM: The thyroid is unremarkable. There is no thoracic aortic aneurysm or dissection. There is an aberrant right subclavian artery. There are mild atherosclerotic calcifications of the thoracic aorta. No significant coronary artery atherosclerotic calcifications are seen. No mediastinal or hilar lymphadenopathy is seen. PERICARDIUM/PLEURA: There is no significant effusion. No pleural mass or thickening. CHEST WALL/AXILLA: Unremarkable. A right internal jugular Port-A-Cath device is seen. ABDOMEN/PELVIS: LIVER, GALLBLADDER, BILIARY TREE: The liver is normal in size, shape and generally diminished in attenuation. No focal hepatic lesion or biliary ductal dilatation is present. There is again pneumobilia. The gallbladder is surgically absent. PANCREAS: There are again postoperative changes consistent with a prior Whipple procedure. There is a small amount of low-attenuation fluid noted adjacent to the pancreatic head. No new pancreatic mass lesion is seen. A pancreatic ductal stent is again noted. SPLEEN: Unremarkable. ADRENAL GLANDS: Unremarkable. KIDNEYS AND URETERS: The kidneys are normal in size, shape, and attenuation. No hydronephrosis or hydroureter or calculi seen. No perinephric stranding. BLADDER: Unremarkable. GASTROINTESTINAL TRACT: There is a moderate stool burden. No obstruction, free intraperitoneal air or abscess is seen. This no focal bowel wall thickening. No significant diverticulosis or diverticulitis is seen. The vermiform appendix appears normal. ABDOMINAL WALL: No significant hernia is demonstrated. LYMPH NODES: A prominent aortocaval lymph node is seen, measuring 2.0 x 1.6 cm (3:24). This has increased in the interim. There is a further increased lymph node noted anterior to the superior mesenteric vein (3:29), which now measures 2.4 x 1.7 cm. VASCULAR: There is moderate aortoiliac atherosclerotic calcification. No abdominal aortic aneurysm or dissection is seen. PELVIC VISCERA: The uterus and adnexa are unremarkable. OSSEOUS STRUCTURES: There is multi-level thoracolumbar degenerative change. This is particularly pronounced at L4-L5 and L5-S1, with vacuum phenomenon. Within the T6 and L2 vertebral bodies and the L1 posterior elements (9:49, 45 and 54), lytic foci are again seen which showed no abnormal uptake on the PET/CT examination of 07/31/2022 and may represent a benign hemangiomas. There are further benign sclerotic bone island is seen within the spine. There are degenerative changes of the right shoulder and hips. No acute or aggressive osseous finding is noted. CT/CT abdomen pelvis w IV con IMPRESSION: 1. There is a continued stable appearance of bilateral pulmonary nodules, as detailed. Recommend continued attention on imaging follow-up. 2. No new nodule, mass, infiltrate or groundglass opacity is seen. 3. There is stable right middle lobe scar/subsegmental atelectasis with associated bronchiectasis. 4. No thoracic lymphadenopathy or pleural effusion is seen. 5. There are stable postoperative changes consistent with a prior Whipple procedure. No local residual or recurrent mass is seen. 6. There are increased aortocaval and mesenteric lymph nodes, likely metastatic. 7. There is hepatic steatosis. 8. There are multi-level degenerative changes of the spine. No aggressive osseous lesion is seen.
[2023-04-22] MEDS: Barium Sulfate Oral (Berry) 450 ML ORAL.SUSP 900 ML PO (11:24)
[2023-04-22] MEDS: iohexoL 350 MG/ML 100 ML INFUS..BTL 85 ML IV (11:25)
== END 2023-04-22 08:27 | disposition home or self-care (01) ==
LOC: HO.CT 08:26
PROVIDERS: PCP Internal Medicine; Visit Provider Internal Medicine Medical Oncology
DX: C25.9 Malignant neoplasm of pancreas, unspecified (principal)
CPT/HCPCS: 71260; 74177; Q9967

== ENCOUNTER 2023-05-03 11:30 | Outpatient (AMB) | payer MEDICARE, SELFPAY ==
[2023-05-03 11:36] VITALS: BP 152/84; PULSE 68; O2SAT 99; BMI 21.5
--- NOTE | 2023-05-03 11:36 | A.OFFPC_ITS ---
Vital Signs 05/03/23 11:36 Height 5 ft 5 in Weight 129 lb 6 oz BMI 21.5 BP 152/84 H Blood Pressure Location Rt brachial Position Sitting Pulse 68 Pulse Source Pulse Oximeter Pulse Oximetry (%) 99 Oxygen Delivery Method Room Air Intake Visit Reasons: 6mo. f/u Intake Note: pt is here to follow up on her lab results Allergies amoxicillin [Amoxicillin] Allergy (Unknown, Verified 05/03/23 12:04) NAUSEA, vomiting, severe GI problems Medication List - Last Reconciled 05/03/23 by Carmen Lara MD metoprolol succinate ER 25 mg PO DAILY Tobacco use date assessed: 05/03/23 Fall risk assessment: No Falls in past year Last assessed Fall Risk: 05/03/23 Dental Screening Dental Screen Date: 05/03/23 Did you have a dental visit in the last 12 months?: Yes Did you have a dental problem in the last 6 months where you did not have access to dental care?: No Was dental information given to patient?: Patient has dentist HPI 6mo. 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 Currently taking metoprolol succinate ER 25 mg once a day. She has been eating better, but still has not gained much weight. 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 Mother No problems noted. Sister H/O thyroid disease Cancer Social History Household Members: Significant Other Housing: House Are you a primary childcare attendant to a significant other at home: No Do you presently have visiting nurse or other home services: Yes (3x a week) Alcohol intake: never Patient Tobacco Use Status: Never used Tobacco e-Cigarette/Vaping Use: Never Used Second Hand Smoke Exposure: No Use of substances other than those prescribed or required for medical reasons: No Have you been hit, kicked, punched, or otherwise hurt by someone within the past year? If so, by whom?: No Do you feel safe in your current relationship?: Yes Advance Directives Date on File: 06/19/22 Do you have thoughts of harming others: None Do you have a plan to hurt others: No Plan Do you have the means to hurt others: No Recently lost weight without trying: Yes How much weight loss: 2-13 pounds Eating poorly because of decreased appetite: No Nutrition screen score: 3 Patient : No service: No Current occupational status: retired Cognitive needs: No Hearing needs: No Vision needs: No Questionnaire Thrive Questionnaire Date Thrive assessed: 06/05/23 I am a: Patient What is your living situation today?: I have a steady place to live Within the past 12 months, did the food you bought not last and you didn't have the money to get more?: Never true Within the past 12 months, did you worry whether your food would run out before you got money to buy more?: Never true Do you have trouble paying for medicines?: No Do you have trouble getting transportation to medical appointments?: No Do you have trouble paying your heating and electricity bill?: No Do you have trouble taking care of your child, family member or friend?: No Do you have trouble with day-to-day activities such as bathing, preparing meals, shopping, managing finances, etc.?: No Are you currently unemployed and looking for a job?: No Are you interested in more education?: No Please select the resources that you would like help with: None RENÉ-7 AMB Questionnaire RENÉ-7 Date RENÉ - 7 assessed: 06/08/22 Source: Developed by Drs. Francis Ovalle, Anne Castillo, Humble Luz and colleagues, with an educational rachel from [employer]. Review of Systems Const All systems reviewed & are unremarkable except as noted in HPI and below Denies anorexia, Denies chills, Denies headache(s) and Denies night sweats Eyes Reports no additional complaints ENT Denies headache(s) Card Denies chest pain, Denies rapid heart rate, Denies irregular heart rhythm and Denies dyspnea on exertion Resp Denies cough, Denies hemoptysis and Denies dyspnea on exertion GI Denies abdominal pain, Denies melena, Reports bloating, Denies hematochezia, Denies constipation, Denies heartburn and Denies diarrhea Skin/Breast Denies breast swelling, Denies breast skin changes, Denies breast pain and Denies breast mass Neuro Denies headache(s) Psych Reports no additional complaints Endo Reports no additional complaints Mansoor/Lymph Denies lymphadenopathy Physical exam (Primary Care) Vital Signs: Last Vital Signs Pulse 68 05/03/23 11:36 BP 152/84 H 05/03/23 11:36 Pulse Ox 99 05/03/23 11:36 Oxygen Delivery Method Room Air 05/03/23 11:36 BMI result Body Mass Index 21.5 Tobacco/Smoking Status: Tobacco use Status Tobacco use date assessed 05/03/23 05/03/23 11:42 Patient Tobacco Use Status Never used Tobacco 05/03/23 11:36 e-Cigarette/Vaping Use Never Used 05/03/23 11:36 Thrive Assessment: Date of Thrive Assessment Date Thrive assessed 06/08/22 05/03/23 11:36 Const Other: Alert oriented x3, no acute cardiorespiratory distress noted ambulatory normal gait HENPR Mouth: Normal oral and palatal mucosa present and moist mucous membranes Eyes General: appearance normal, both eyes and all related structures Conjunctivae: conjunctivae normal Sclerae: sclerae normal Pupils: Equal, round and reactive pupils present EOM: EOMs intact bilaterally Neck Other: Supple, no lymphadenopathy, thyroid gland nonpalpable Resp Effort & Inspection: normal respiratory effort and able to speak in complete sentences Auscultation: clear to auscultation bilaterally Cardio Other: S1 S2 present regular rate and rhythm GI Other: Normal bowel sounds, dry, healed surgical scar on abdomen, no dehiscence, no tenderness on palpation General: Yes no CVA tenderness Back/Spine/Pelvis Back: no CVA tenderness and No back tenderness Skin General skin exam: no rashes or lesions noted Neuro General: gait normal, tone normal, moves all extremities, Normal light touch and pain sensation, no focal motor deficits and CN's II-XI intact bilaterally Cranial nerves: Yes Equal, round and reactive pupils present Extrem General: Yes normal to inspection, Yes full ROM, Yes no joint enlargement, Yes no clubbing, cyanosis or edema, Yes no calf tenderness and Yes normal gait Results Reviewed Results Reviewed: SPEC : [id number] FITO: 04/29/23 STATUS: COMP REQ : [id number] RECD: 04/29/[address]: Wilman Sheets MD COMP: 04/29/23 ENTERED: 04/29/23 [facility] DR: Carmen Lara MD ORDERED: CBC Auto Diff Test Result Flag Reference Site WBC 9.6 4.8-10.8 X10*3/uL RBC 3.84 L 4.20-5.50 X10*6/uL HGB 12.0 12.0-16.0 g/dl HCT 37.6 37.0-47.0 % MCV 97.9 80.0-98.0 fL MCH 31.3 27.0-33.0 pg MCHC 31.9 31.0-35.0 g/dl RDW 15.0 11.0-16.0 % PLT 233 160-400 X10*3/uL RUN: 05/03/23 1205 PAGE 1 [facility] [address] [place] [id number] Marine Biologist: Manjit Watson M.D. Specimen Inquiry Name: Kelli Lopez Age/Sex: 82/F : 1940 Unit#: [id number] Attend Dr: Wilman Sheets MD Re04/30/23 Status: REG RCR Location: [facility].ONC Disch: SPEC : [id number] FITO: 04/29/23 STATUS: COMP REQ : [id number] RECD: 04/29/[address]: Wilman Sheets MD COMP: 04/29/23 ENTERED: 04/29/23 [facility] DR: Carmen Lara MD ORDERED: CMP Test Result Flag Reference Site Sodium 142 135-145 mmol/L Potassium 4.0 3.3-5.1 mmol/L CL 110 H 96-108 mmol/L CO2 25 22-29 mmol/L Gap 11 L 12-20 BUN 9 9-16 mg/dL Creat 0.65 0.5-1.4 mg/dL Estimated CrCl 62.1 Provided height and weight: 165.1 cm, 58.7 kg. eGFR (calculated from the MDRD study equation) and eCrCl (calculated from the Cockcroft-Gault equation) are based on different parameters and may not yield comparable results. If eCrCl result is absurd, please check patient's height/weight. EGFR > 60 NOTE: For -[place] individuals, multiply the result by 1.210. Chronic Kidney Disease: Estimated GFR < 60 mL/min/1.73m2 Severe Kidney Disease: Estimated GFR < 15 mL/min/1.73m2 Glucose, Random 113 60-115 mg/dL CA 9.0 8.4-10.2 mg/dL Total Bili 0.9 0.0-1.0 mg/dL AST (GOT) 29 5-31 U/L ALT (GPT) 24 0-31 U/L Protein, Total 6.6 6.5-8.0 g/dL Alb 3.9 3.5-5.0 g/dL Alk Phos 139 H 39-117 U/L Assessment and Plan Assessment & Plan (1) Essential hypertension: Code(s): I10 - Essential (primary) hypertension Plan: Systolic Blood pressure today is mildly elevated at 150 with diastolic at 84 P goal blood pressure less than 130/80. Will continue her on metoprolol succinate ER 25 mg daily, Reinforced importance of following a low sodium diet, getting regular exercise, and lowering stress levels. (2) Adenocarcinoma of pancreas: Code(s): C25.9 - Malignant neoplasm of pancreas, unspecified Plan: Status post Whipple procedure, currently on chemotherapy followed by Dr. Sheets Coding Level of Care Code Est Pt Level 3 (30422) Diagnoses Essential hypertension I10 Adenocarcinoma of pancreas C25.9
== END 2023-05-03 12:32 | disposition home or self-care (01) ==
PROVIDERS: PCP Internal Medicine; Visit Provider Internal Medicine
DX: I10 Essential (primary) hypertension (principal); C25.9 Malignant neoplasm of pancreas, unspecified; Z86.000 Personal history of in-situ neoplasm of breast
CPT/HCPCS: 99213

== ENCOUNTER 2023-07-30 08:43 | Outpatient (REF) | payer MEDICARE, SELFPAY ==
--- NOTE | ~2023-07-30 | CT_ITS ---
EXAMINATION: CT CHEST WITH CONTRAST WITH CONTRAST CT ABDOMEN AND PELVIS WITH CONTRAST CLINICAL INFORMATION: Follow-up pulmonary nodules. COMPARISON: Pancreatic cancer. Follow-up lung nodules. TECHNIQUE: Multidetector volumetric CT imaging of the chest, abdomen and pelvis was obtained after the administration of 85 mL of Omnipaque 300 intravenous contrast without immediate adverse reactions. Axial MIP volume rendering provided. Sagittal and coronal reformatted images were obtained. This CT examination was performed using dose optimization techniques as appropriate, variously including the following: *Automated exposure control *Adjustment of mA and/or kV according to patient size (this includes techniques or standardized protocols for targeted exams where dose is matched to indication/reason for exam; i.e. extremities or head) *Use of iterative reconstruction technique DLP: 291 mGy-cm FINDINGS: LUNGS: Again seen is a 7 x 4 mm slightly irregular-appearing nodule at the right apex (5:77 compare prior 5:57), unchanged when compared to prior. A 4 x 2 mm nodule is seen and stable in appearance at the left lung base (5:319 compare prior 5:304). A small punctate calcified nodule is seen in the right upper lobe (5:139 compare prior 5:115). There is a 2 mm right middle lobe nodule unchanged (5:266 compare prior 5:240) with another smaller adjacent nodule. MEDIASTINUM: A right chest wall port is present with its tip in the distal SVC. No mediastinal or hilar lymphadenopathy is seen. VASCULAR: No aortic aneurysm. There is an aberrant right subclavian artery. No significant coronary artery calcification. PLEURA: There is no pleural effusion. No pleural mass or thickening. AXILLA: No lymphadenopathy. LIVER, GALLBLADDER, AND BILIARY TREE: Liver is enlarged at 18.2 cm in cephalocaudad dimension. Air is present in the biliary tree status post Whipple procedure. Clips are present in the brandy hepatis. Gallbladder no longer present. PANCREAS: Postop changes seen consistent with a Whipple procedure. A pancreatic duct stent is again noted. No recurrent mass is seen. SPLEEN: Unremarkable. ADRENAL GLANDS: Unremarkable. KIDNEYS AND URETERS: The kidneys are normal in size, shape, and attenuation. No hydronephrosis, hydroureter, or calculi seen. No perinephric stranding. GASTROINTESTINAL TRACT: Mucosal thickening is present in the rectosigmoid with some minimal inflammatory change around the colon which may represent colitis. The small and large bowel are otherwise unremarkable. No evidence of appendicitis. ABDOMINAL WALL: No significant hernia is appreciated. LYMPH NODES: An enlarged aortocaval lymph node is seen previously measuring 2.0 x 1.8 x 3.2 cm and currently measuring 2.3 x 1.7 x 3.7 cm (3:23 compare prior 3:24). There is a new large gastrohepatic ligament lymph node seen measuring 2.7 x 1.7 x 2.4 cm (3:15 compare prior 6:30). There are some new smaller retrocaval aortocaval lymph nodes present measuring 0.7 and 1.0 cm in short axis dimension (3m:19). There is a large shauna mass seen anterior to the SMV measuring 3.2 x 2.4 x 2.5 cm previously measuring 1.9 x 1.8 x 1.8 cm (3:29 and 6:25 compare prior 3:29 and 6:25) Other mesenteric lymph nodes are seen which appear slightly larger when compared to prior as well. VASCULAR: Calcific atherosclerotic change seen in the aorta and iliofemoral vessels without aneurysm. Severe near-occlusive right distal common femoral stenosis is present with calcification filling nearly the entire lumen, unchanged from prior. PELVIS: The uterus and adnexa appear unremarkable. A small amount of free intraperitoneal fluid is present in the cul-de-sac. OSSEOUS STRUCTURES: Rounded lytic focus in the T6 vertebral body is unchanged (9:51). Degenerative changes are present in the spine with mild scoliosis. Degenerative changes are present in both hips. CT/CT abdomen pelvis w IV con IMPRESSION: 1. Pulmonary nodules are unchanged. 2. Status post Whipple procedure with no evidence of recurrent pancreatic mass. 3. Significantly increased retroperitoneal lymphadenopathy worrisome for progression of metastatic disease . 4. Mucosal thickening in the rectosigmoid with some minimal inflammatory change around the colon which may represent colitis. 5. Other incidental findings as described above including severe near-occlusive right common femoral stenosis, small amount of free intraperitoneal fluid and degenerative changes in the spine. Fleischner guidelines were followed.
[2023-07-30] MEDS: iohexoL 350 MG/ML 100 ML INFUS..BTL IV (11:26)
[2023-07-30] MEDS: Barium Sulfate Oral (Mocha) 450 ML ORAL.SUSP 900 ML PO (11:27)
== END 2023-07-30 08:44 | disposition home or self-care (01) ==
LOC: HO.CT 08:43
PROVIDERS: PCP Internal Medicine; Visit Provider Internal Medicine Medical Oncology
DX: C25.9 Malignant neoplasm of pancreas, unspecified (principal)
CPT/HCPCS: 71260; 74177; Q9967

== ENCOUNTER 2023-08-15 14:24 | Outpatient (AMB) | payer MEDICARE, SELFPAY ==
--- NOTE | 2023-08-15 14:28 | A.OFFVIS_ITS ---
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 Pt states that she does not have any pain in her right LE. Pt states that her Left LE is more bothersome due to VV and LE swelling. Pt states she did not have this issue until undergoing cancer treatment and surgery last year. 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 This all began as a workup regarding her pancre atic cancer. She has a prior history of a Whipple. In addition she does have a history of breast cancer as well. Upon discussion with her she has never had issues with peripheral vascular disease. She did have prior venous surgery by Dr. Gotti on her left leg several years prior. At the current time she can walk a block or 2 with no significant difficulty. She does note some joint discomfort when she wakes in the morning. Other than that she reports she is doing fairly well. Of note she is a nonsmoker nondiabetic. She now presents to us for vascular evaluation [facility] Medical History Adenocarcinoma of pancreas Osteoarthritis of both sacroiliac joints Osteoarthritis of hips, bilateral Osteopenia of multiple sites Ductal carcinoma in situ of left breast Dyslipidemia Essential hypertension H/O cyst of breast Surgical History History of pancreatectomy (09/26/22) H/O Whipple procedure History of eyelid surgery Hx of tonsillectomy History of cataract surgery Status post left breast lumpectomy H/O colonoscopy Family History Father No problems noted. Mother No problems noted. Sister H/O thyroid disease Cancer Social History Household Members: Significant Other Housing: House Are you a primary progressive care unit registered nurse to a significant other at home: No Do you presently have visiting nurse or other home services: Yes (3x a week) Alcohol intake: never Patient Tobacco Use Status: Never used Tobacco e-Cigarette/Vaping Use: Never Used Second Hand Smoke Exposure: No Advance Directives Date on File: 06/19/22 service: No Current occupational status: retired Cognitive needs: No Hearing needs: No Vision needs: No Review of Systems Const All systems reviewed & are unremarkable except as noted in HPI and below Reports no additional complaints ENT Reports Normal hearing present Card Denies chest pain, Denies chest pain at rest, Denies chest pain with activity and Denies pedal edema Resp Denies cough GI Denies abdominal pain Musc Denies abnormal gait, Denies muscle cramps and Denies radiating pain into limb Skin/Breast Denies skin ulcer and Denies wounds Neuro Reports Normal hearing present and Denies abnormal gait Psych Reports no additional complaints Physical Exam Const General: cooperative, healthy appearing and comfortable Orientation/consciousness: oriented to person, oriented to place and oriented to time HEENT Head: Yes normal to inspection Neck Neck: Yes normal visual inspection Carotids: no bruits Chest Chest palpation & inspection: normal inspection of the chest Resp Effort & Inspection: normal respiratory effort and able to speak in complete sentences Auscultation: clear to auscultation bilaterally, no crackles, no rales, no rhonchi and no wheezes Cardio Other: Bilateral DP signals Rate: regular rate Rhythm: regular rhythm Heart sounds: S1 normal heart sound present and S2 normal heart sound present Bruits: no carotid bruits Peripheral pulses: Peripheral pulses 2+ throughout GI Inspection: Yes normal to inspection Skin Wounds: no wounds Hair: normal Neuro General: oriented to person, oriented to place and oriented to time Cranial nerves: Yes CN's II-XII intact bilaterally and Yes Normal hearing present Cognition (Neuro): normal cognition Motor exam (neuro): 5/5 motor strength present throughout Extrem Other: venous exam: No significant superficial varicosities or spider telangiectasias, minimal edema General: No clubbing, No cyanosis and No edema Psych Appearance: grossly normal Mental Status: mental status grossly normal Speech and movement: Normal speech and movement present Assessment & Plan Assessment & Plan (1) PAD (peripheral artery disease): Code(s): I73.9 - Peripheral vascular disease, unspecified Plan: In short patient has an element of peripheral vascular disease. At the current time she is clinically stable. She appears to be able to complete her daily activities. I will did discuss the CT scan findings with her. I did recommend routine surveillance follow-up in approximately 3 months time. Should she become clinically symptomatic would be happy to intervene. At the current time we will manage her conservatively. I did do a fair amount of education and reassurance. Thank you for allowing us to participate in the care of this very nice lady. If there are any questions or concerns please do not hesitate to contact us. The patient had an opportunity to ask questions regarding the treatment plan. All questions were answered. Imaging studies, laboratory studies and physical exam results were discussed and reviewed in detail. No major barriers to understanding were identified. The patient expressed understanding and agreement with the above treatment plan. The patient is aware they should contact our office by phone for worsening of the current condition or the appearance of new symptoms. Thank you for allowing me to participate in the vascular care of this patient. If you have any questions or concerns regarding the treatment for the above condition please do not hesitate to contact me. The office telephone contact is [phone]. This note is constructed using voice recognition software. While every effort has been made to ensure accuracy, recovery room nurse errors may have been included. Thank you for allowing me to participate in the care of your patient. Yours sincerely, Kristopher Anglin MD, FACS, R.P.V.I. Orders: Orders US arterial duplex LE BI 1 Week I73.9 - Peripheral vascular disease, unspecified Coding Level of Care Code New Pt Level 4 (06103) Diagnoses PAD (peripheral artery disease) I73.9
== END 2023-08-15 15:02 | disposition home or self-care (01) ==
PROVIDERS: PCP Internal Medicine; Visit Provider Surgery Vascular Surgery
DX: I73.9 Peripheral vascular disease, unspecified (principal)
CPT/HCPCS: 99203

== ENCOUNTER → 2023-08-15 14:24 | Outpatient (BNVA) | payer MEDICARE, SELFPAY | PROVIDERS: PCP Internal Medicine; Visit Provider Surgery Vascular Surgery | DX: I73.9 Peripheral vascular disease, unspecified (principal) | CPT/HCPCS: 99202 ==

== ENCOUNTER 2023-09-11 09:58 | Outpatient (REF) | payer MEDICARE, SELFPAY ==
--- NOTE | ~2023-09-11 | US_ITS ---
EXAMINATION: US NONINVASIVE ASSESSMENT OF THE ARTERIES OF BOTH LOWER EXTREMITIES INCLUDING PVR EXAM AND BILATERAL LOWER EXTREMITY DUPLEX. CLINICAL INFORMATION: Peripheral vascular disease COMPARISON: None TECHNIQUE: Ankle pulse volume recordings, ankle pressure measurements and ankle brachial indices were obtained of the lower extremity arterial system bilaterally in addition to duplex Doppler techniques with wave form analysis and measurement of velocities in the common femoral, profunda femoral, superficial femoral, popliteal, tibial and peroneal arteries. The study was performed only at rest. FINDINGS: RIGHT LE. THE RIGHT ANKLE-BRACHIAL INDEX IS: 1.04 >0.97-1.25 = normal - no significant arterial disease 0.75-0.96 = mild peripheral arterial disease 0.5-0.74 = moderate peripheral arterial disease <0.50 = severe peripheral arterial disease <0.30 = critical arterial disease 2. SEGMENTAL PRESSURES (mmHg): Ankle: PT 180, DP 179 3. PVR WAVEFORMS: Ankle: Abnormal 4. DIRECT DUPLEX: Common femoral artery: 127 cm/s, biphasic Profunda femoris artery: 63 cm/s, biphasic Superficial femoral artery (proximal): 123 cm/s, biphasic Superficial femoral artery (mid): 84 cm/s, biphasic Superficial femoral artery (distal): 86 cm/s, biphasic Proximal Popliteal artery: 72 cm/s, biphasic Mid posterior tibial artery: 84 cm/s, biphasic LEFT LE. THE LEFT ANKLE-BRACHIAL INDEX IS: 1.1 >0.97-1.25 = normal - no significant arterial disease 0.75-0.96 = mild peripheral arterial disease 0.5-0.74 = moderate peripheral arterial disease <0.50 = severe peripheral arterial disease <0.30 = critical arterial disease 2. SEGMENTAL PRESSURES: Ankle: PT 180, DP 190 3. PVR WAVEFORMS: Ankle: Abnormal 4. DIRECT DUPLEX: Common femoral artery: 120 cm/s, biphasic Profunda femoris artery: 93 cm/s, biphasic Superficial femoral artery (proximal): 98 cm/s, biphasic Superficial femoral artery (mid): 86 cm/s, biphasic Superficial femoral artery (distal): 75 cm/s, biphasic Proximal Popliteal artery: 51 cm/s, biphasic Mid posterior tibial artery: 60 cm/s, biphasic Incidentally noted left popliteal (Campos's cyst) cyst measuring 2.5 x 0.9 x 2.0 cm. US/US arterial duplex LE BI IMPRESSION: 1. Normal resting peripheral arterial testing without evidence of hemodynamically significant stenosis. 2. Incidentally noted left Campos's cyst.
== END 2023-09-11 09:59 | disposition home or self-care (01) ==
LOC: HO.US 09:58
PROVIDERS: PCP Internal Medicine; Visit Provider Surgery Vascular Surgery
DX: I73.9 Peripheral vascular disease, unspecified (principal)
CPT/HCPCS: 93923; 93925

== ENCOUNTER 2023-10-22 14:02 | Outpatient (REF) | payer MEDICARE, SELFPAY ==
--- NOTE | ~2023-10-22 | XR_ITS ---
EXAMINATION: XR HIP, RIGHT CLINICAL INFORMATION: Right hip pain. COMPARISON: 11/03/2020. TECHNIQUE: Two views of the right hip. FINDINGS: Moderate to marked degenerative changes right hip with axillary narrowing, hypertrophic change and subchondral sclerosis. Redemonstration of sclerotic focus overlying the soft tissues adjacent to the hip, better characterized on CT abdomen and pelvis of 07/30/2023. There has been progression of bony demineralization with cortical thinning, although definitive displaced fracture is appreciated, correlation with clinical exam and possible additional imaging with CT scan recommended if there is concern for nondisplaced fracture. XR/XR hip RT min 2V IMPRESSION: 1. Adsambni-dy-ethrsx degenerative changes in the right hip. 2. There has been progression of bony demineralization with cortical thinning, although definitive displaced fracture is appreciated, correlation with clinical exam and possible additional imaging with CT scan recommended if there is concern for nondisplaced fracture.
== END 2023-10-22 14:03 | disposition home or self-care (01) ==
LOC: HO.XRAY 14:02
PROVIDERS: PCP Internal Medicine; Visit Provider Internal Medicine Medical Oncology
DX: M25.551 Pain in right hip (principal)
CPT/HCPCS: 73502

== ENCOUNTER 2023-12-25 09:11 | Outpatient (REF) | payer MEDICARE, SELFPAY ==
--- NOTE | ~2023-12-25 | CT_ITS ---
EXAMINATION: CT ABDOMEN AND PELVIS WITH CONTRAST CLINICAL INFORMATION: Follow-up pancreatic mass COMPARISON: Previous CT of the abdomen and pelvis most recent July 2023 TECHNIQUE: Multidetector volumetric images were obtained from the superior aspect of the liver through the pubic symphysis following administration 85 mL of Omnipaque 350 intravenous contrast. Sagittal and coronal reformatted images were obtained on the technologist's workstation. Oral contrast: Yes This CT examination was performed using dose optimization techniques as appropriate, variously including the following: *Automated exposure control *Adjustment of mA and/or kV according to patient size (this includes techniques or standardized protocols for targeted exams where dose is matched to indication/reason for exam; i.e. extremities or head) *Use of iterative reconstruction technique DLP: 371 mGy-cm FINDINGS: LIVER, GALLBLADDER, AND BILIARY TREE: The liver is low in attenuation suggestive of fatty infiltration. There is pneumobilia. There is mild intrahepatic biliary duct dilatation not appreciably changed from previous exam. There is increased enhancement of the liver parenchyma surrounding some dilated bile ducts in the medial segment of the left lobe and anterior segment of the right lobe of the liver for example axial image 8 series 2. This is a new finding and is questionable for evidence of cholangitis. PANCREAS: The head and body of the pancreas appear to have been resected. There is a stent seen in the main pancreatic duct in the remaining tail of the pancreas. SPLEEN: Unremarkable. ADRENAL GLANDS: Unremarkable. KIDNEYS AND URETERS: The kidneys are normal in size, shape, and attenuation. No hydronephrosis, hydroureter, or calculi seen. No perinephric stranding. BLADDER: Not optimally distended. GASTROINTESTINAL TRACT: Postsurgical changes to the small bowel. There is wall thickening and edema of the distal stomach and duodenum. Appearance may represent post radiation change. Small bowel otherwise normal. There is a large amount of stool in the colon suggestive of constipation. There is question wall thickening of the rectum versus prolapse. The appendix is not seen. No ascites. ABDOMINAL WALL: No significant hernia is appreciated. LYMPH NODES: There are multiple enlarged upper abdominal and retroperitoneal lymph nodes. These appear decreased in size from July 2023 exam. For example there is a 1.6 x 2 cm lymph node in the gastrohepatic space axial image 14 series 2 decrease in size from 1.7 x 2.7 cm. There is an aortocaval lymph node measuring 1 x 1.8 cm axial image 22 series 2 compared to 1.4 x 2.5 cm on previous exam. There is a heterogeneous irregularly shaped lymph node or soft tissue mass in the pancreatic bed measuring 2 x 3.2 cm axial image 28 series 2 compared to 2.3 x 3.8 cm on previous exam. There are multiple smaller retroperitoneal periportal and small bowel mesentery lymph nodes.. VASCULAR: The SMV and main right and left portal veins appear prominent but patent. The SMV and IMV are patent. The splenic vein is patent. There is atherosclerotic disease. No aneurysm. PELVIC VISCERA: Unremarkable. OSSEOUS STRUCTURES: Degenerative changes of the spine and hip joints. CT/CT abdomen pelvis w IV con IMPRESSION: Mild intra and extrahepatic biliary duct dilatation. There is increased enhancement surrounding slightly dilated bile ducts in the medial segment of the left lobe and anterior segment of the right lobe of the liver questionable for evidence of cholangitis. Stable postsurgical changes. Interval interval decrease in upper abdominal and retroperitoneal and small bowel mesentery lymphadenopathy and question of peritoneal disease versus recurrent soft tissue in the pancreatic bed area. Fatty liver. Wall thickening and edema of the distal stomach and duodenum, question representing gastroenteritis versus post radiation change. Distended colon and constipation. Question mild proctitis versus rectal prolapse. Fleischner guidelines were followed.
--- NOTE | ~2023-12-25 | CT_ITS ---
EXAMINATION: CT CHEST WITH CONTRAST CLINICAL INFORMATION: Follow-up pancreatic cancer COMPARISON: Previous chest CT most recent July 2023 TECHNIQUE: Multidetector volumetric CT imaging of the chest was obtained after the administration of 85 mL of Omnipaque 350 intravenous contrast without immediate adverse reactions. Axial MIP volume rendering provided. Sagittal and coronal reformatted images were obtained. This CT examination was performed using dose optimization techniques as appropriate, variously including the following: *Automated exposure control *Adjustment of mA and/or kV according to patient size (this includes techniques or standardized protocols for targeted exams where dose is matched to indication/reason for exam; i.e. extremities or head) *Use of iterative reconstruction technique DLP: 92 mGy-cm FINDINGS: LUNGS: There is biapical pleural and parenchymal scarring. There are deeper bilateral apical nodules that are stable, largest measuring 4 x 8 mm in the right upper lobe axial image 67 series 4. Other smaller calcified and noncalcified nodules/micronodules are stable There is evidence of mild airways disease with bronchial soft tissue opacification in the posterior segment of the right upper lobe. There are areas of scarring or chronic subsegmental atelectasis in the right middle lobe, anterior segment of the right upper lobe and left lower lobe. These are all stable. No new pulmonary nodule seen. MEDIASTINUM: Replaced right subclavian artery. Upper normal-sized thoracic aorta. Upper normal heart size. No pericardial effusion. No enlarged hilar or mediastinal lymph nodes. Right jugular port with tip projecting over the SVC. PLEURA: There is no pleural effusion. No pleural mass or thickening. AXILLA: No lymphadenopathy. UPPER ABDOMEN: See abdominal and pelvic CT report from the same day OSSEOUS STRUCTURES: Degenerative changes. No fracture or bone lesion seen. CT/CT chest w IV con IMPRESSION: Stable biapical pleural and parenchymal scarring. Stable pulmonary nodules, largest measuring 4 x 7 mm in the right upper lobe. Stable scarring or chronic subsegmental atelectasis in the right upper and middle and left lower lobes. Chest CT follow-up as per protocol. Fleischner guidelines were followed.
[2023-12-25] MEDS: Barium Sulfate Oral (Berry) 450 ML ORAL.SUSP 900 ML PO (11:37)
[2023-12-25] MEDS: iohexoL 350 MG/ML 100 ML INFUS..BTL IV (11:39)
== END 2023-12-25 09:12 | disposition home or self-care (01) ==
LOC: HO.CT 09:11
PROVIDERS: PCP Internal Medicine; Visit Provider Internal Medicine Medical Oncology
DX: C25.9 Malignant neoplasm of pancreas, unspecified (principal)
CPT/HCPCS: 71260; 74177; Q9967

== ENCOUNTER 2024-02-17 13:43 | Outpatient (AMB) | payer MEDICARE, SELFPAY ==
--- NOTE | 2024-02-17 14:09 | A.OFFVIS_ITS ---
Vital Signs 3 02/17/24 14:12 Height 5 ft 3 in Weight 114 lb 10.246 oz BMI 20.3 BP 166/86 H Blood Pressure Location Rt brachial Position Sitting Pulse 66 Intake Visit Reasons: Abnormal CT Scan per Dr Sheets Intake Note: Kelli presents in the office as a follow up for abnormal CT scan. CC: She is doing chemo at the moment. She states she is feeling drained. She states that so far she is doing okay. No symptoms. 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 Coats and undergoing adjuvant chemo through Dr Sheets's office. Pt referred back to our office after recent CT scan from December showed thickening of the stomach and duodenum as well as rectum. On review of imaging pt was also noted to have hyperintense lesions in the peripheral R lobe of liver surrounding the bile ducts. See below. [facility] Medical History Adenocarcinoma of pancreas Osteoarthritis of both sacroiliac joints Osteoarthritis of hips, bilateral Osteopenia of multiple sites Ductal carcinoma in situ of left breast Dyslipidemia Essential hypertension H/O cyst of breast Surgical History History of pancreatectomy (09/26/22) H/O Whipple procedure History of eyelid surgery Hx of tonsillectomy History of cataract surgery Status post left breast lumpectomy H/O colonoscopy Family History Father No problems noted. Mother No problems noted. Sister H/O thyroid disease Cancer Social History Household Members: Significant Other Housing: House Are you a primary daycare director to a significant other at home: No Do you presently have visiting nurse or other home services: Yes (3x a week) Alcohol intake: never Patient Tobacco Use Status: Never used Tobacco e-Cigarette/Vaping Use: Never Used Second Hand Smoke Exposure: No Advance Directives Date on File: 06/19/22 service: No Current occupational status: retired Cognitive needs: No Hearing needs: No Vision needs: No Review of Systems Const All systems reviewed & are unremarkable except as noted in HPI and below Physical Exam Vital Signs: Last Vital Signs Pulse 66 02/17/24 14:12 BP 166/86 H 02/17/24 14:12 BMI result Body Mass Index 20.3 No apparent distress Nonicteric Abdomen soft, nondistended Alert and oriented x3, normal gait Assessment & Plan Assessment & Plan (1) Adenocarcinoma of pancreas: Code(s): C25.9 - Malignant neoplasm of pancreas, unspecified Category: Medical (2) H/O Whipple procedure: Code(s): Z90.410 - Acquired total absence of pancreas; Z90.49 - Acquired absence of other specified parts of digestive tract Category: Surgical (3) Bile duct abnormality: Code(s): K83.9 - Disease of biliary tract, unspecified Category: Medical (4) Gastritis: Code(s): K29.70 - Gastritis, unspecified, without bleeding (5) Proctitis: Code(s): K62.89 - Other specified diseases of anus and rectum Plan Imaging reviewed with patient's oncologist Dr. Sheets as well. Will obtain dedicated MRI liver protocol with and without contrast. Depending on findings, may need sampling. In terms of possible gastritis/duodenitis as well as proctitis noted on CT abdomen pelvis, can plan for upper endoscopy and sigmoidoscopy after MRI has been reviewed and contingent on overall clinical course. Orders: Orders 2 MR abdomen wo/w con 02/20/24 C25.9 - Malignant neoplasm of pancreas, unspecified Coding Level of Care Code Est Pt Level 4 (09435) Diagnoses Adenocarcinoma of pancreas C25.9 H/O Whipple procedure Z90.410; Z90.49 Bile duct abnormality K83.9 Gastritis K29.70 Proctitis K62.89
[2024-02-17 14:12] VITALS: BP 166/86; PULSE 66; BMI 20.3
== END 2024-02-17 16:01 | disposition home or self-care (01) ==
PROVIDERS: PCP Internal Medicine; Visit Provider Internal Medicine
DX: C25.9 Malignant neoplasm of pancreas, unspecified (principal); Z90.410 Acquired total absence of pancreas; Z90.49 Acquired absence of other specified parts of digestive tract; K83.9 Disease of biliary tract, unspecified; K29.70 Gastritis, unspecified, without bleeding; K62.89 Other specified diseases of anus and rectum
CPT/HCPCS: 99214

== ENCOUNTER → 2024-02-17 13:43 | Outpatient (BNVA) | payer MEDICARE, SELFPAY | PROVIDERS: PCP Internal Medicine; Visit Provider Internal Medicine | DX: K83.9 Disease of biliary tract, unspecified (principal); C25.9 Malignant neoplasm of pancreas, unspecified; K29.70 Gastritis, unspecified, without bleeding; K62.89 Other specified diseases of anus and rectum; Z90.410 Acquired total absence of pancreas; Z90.49 Acquired absence of other specified parts of digestive tract | CPT/HCPCS: 99212 ==

== ENCOUNTER 2024-02-20 11:57 | Outpatient (REF) | payer MEDICARE, SELFPAY ==
--- NOTE | ~2024-02-20 | MR_ITS ---
EXAMINATION: MR ABDOMEN WITHOUT AND WITH CONTRAST CLINICAL INFORMATION: Pancreatic carcinoma, restaging patient on chemotherapy COMPARISON: CT scan from 12/25/2023 TECHNIQUE: MR abdomen was performed without and with use of 5 mL intravenous Gadavist. Postcontrast images are performed in multiphase dynamic sequences. Imaging was performed in 3 planes.5 FINDINGS: LUNG BASES: The visualized lung bases are unremarkable. LIVER, GALLBLADDER, AND BILIARY TREE: The liver is normal in size, smooth in contour, and mildly decreased in signal. There is intrahepatic pneumobilia and there is ill-defined subcapsular mildly enhancing lesion in the right lobe of the liver with central nonenhancing dark signal likely due to scar. The findings are concordant with CT scan No focal hepatic lesion or biliary ductal dilatation is present. The gallbladder is resected and there are mild intrahepatic biliary dilatation PANCREAS: The pancreatic head Surgically to 10 there is limited evaluation of pancreas due to artifact from the stent SPLEEN: Normal. ADRENAL GLANDS: Normal. KIDNEYS AND URETERS: The kidneys are normal in size, shape, and enhance symmetrically. No hydronephrosis. No perinephric stranding. GASTROINTESTINAL TRACT: No bowel obstruction. No ascites or fluid collection. ABDOMINAL WALL: No significant hernia is appreciated. VASCULAR: Unremarkable. OSSEOUS STRUCTURES: Marrow signal normal. MR/MR abdomen wo/w con IMPRESSION: Ill-defined lesion in the right lobe of the liver, with contiguous and mild enhancing following Gadavist administration, nonspecific and intrahepatic biliary dilatation and pneumobilia. Postsurgical changes in the pancreas. Follow-up by CT scan is recommended Hepatic steatosis
[2024-02-20] MEDS: gadobutroL 7.5 ML VIAL IVPUSH (13:20)
== END 2024-02-20 11:58 | disposition home or self-care (01) ==
LOC: HO.MRI 11:57
PROVIDERS: PCP Internal Medicine; Visit Provider Internal Medicine
DX: C25.9 Malignant neoplasm of pancreas, unspecified (principal)
CPT/HCPCS: 74183; A9585

== ENCOUNTER 2024-04-10 11:01 | Outpatient (AMB) | payer MEDICARE, SELFPAY ==
--- NOTE | 2024-04-10 11:03 | A.OFFVIS_ITS ---
Vital Signs 3 04/10/24 11:08 Height 5 ft 5 in Weight 112 lb 6 oz BMI 18.7 BP 172/75 H Blood Pressure Location Lt brachial Position Sitting Pulse 70 Intake Visit Reasons: yearly breast exam Intake Note: Patient is seen in office for yearly breast exam. 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 Benson returning for breast cancer follow-up. She was diagnosed with DCIS the left breast in 2011 and underwent lumpectomy on 03/27/2012. Pathology revealed DCIS intermediate to high nuclear grade, ER positive, MA positive with a small focus questionable for microinvasion. She completed radiation therapy and then was placed on tamoxifen for approximately 2 months. This was followed by raloxifene for another 6 months until stopped in December 2012. She feels well and denies any breast symptoms in either breast. She denies any family history of breast cancer. Last mammogram dated 04/19/2023 revealed no mammographic evidence of malignancy (BI- RADS 2). Patient was diagnosed with adenocarcinoma the pancreas and underwent a Whipple procedure (Dr. Coats). She continues with chemotherapy but now reports numbness in the hands and feet. She reports having a good appetite but is losing weight. She denies any new breast symptoms. She has not yet scheduled a follow-up here early mammogram. 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 Mother No problems noted. Sister H/O thyroid disease Cancer Social History Household Members: Significant Other Housing: House Are you a primary home care scheduler to a significant other at home: No Do you presently have visiting nurse or other home services: Yes (3x a week) Alcohol intake: never Patient Tobacco Use Status: Never used Tobacco e-Cigarette/Vaping Use: Never Used Second Hand Smoke Exposure: No Advance Directives Date on File: 06/19/22 service: No Current occupational status: retired Cognitive needs: No Hearing needs: No Vision needs: No Review of Systems Const All systems reviewed & are unremarkable except as noted in HPI and below Denies anorexia, Denies chills, Denies headache(s), Denies night sweats, Reports weakness and Reports weight loss ENT Denies headache(s) Card Denies chest pain, Denies rapid heart rate, Denies irregular heart rhythm and Denies dyspnea on exertion Resp Denies cough, Denies hemoptysis and Denies dyspnea on exertion GI Denies abdominal pain, Denies constipation and Denies diarrhea Denies nipple discharge Skin/Breast Denies breast swelling, Denies breast skin changes, Denies breast pain, Denies breast mass and Denies nipple discharge Neuro Denies headache(s) and Reports weakness Mansoor/Lymph Denies lymphadenopathy Physical Exam Const General: healthy appearing, well developed, alert and awake Nutritional Appearance: well nourished Orientation/consciousness: patient oriented x3 Limitations: no limitations Neck Neck: Yes no lymphadenopathy and Yes no JVD Chest Other: Left breast: No skin change, no nipple retraction, no nipple discharge, no palpable mass, no enlarged lymph nodes. Well-healed incision in the upper inner quadrant with slight volume loss but below the incision. No palpable mass is appreciated and no overlying skin changes are noted. Right breast: No skin change, no nipple retraction, no nipple discharge, no palpable mass, no enlarged lymph nodes Chest/axillae images: 2 1. Resp Effort & Inspection: normal respiratory effort Auscultation: clear to auscultation bilaterally Skin General skin exam: no rashes or lesions noted and dry skin Neuro General: patient oriented x3 Extrem General: Yes no clubbing, cyanosis or edema Assessment & Plan Assessment & Plan (1) DCIS (ductal carcinoma in situ): Code(s): D05.10 - Intraductal carcinoma in situ of unspecified breast Category: Medical Qualifiers: Laterality: left Qualified Code(s): D05.12 - Intraductal carcinoma in situ of left breast (2) Ductal carcinoma in situ of left breast: Code(s): D05.12 - Intraductal carcinoma in situ of left breast Category: Medical Plan 82-year-old female patient approximately 10 years following diagnosis of ductal carcinoma of the left breast status post lumpectomy followed by radiation therapy. She feels well and denies any ongoing breast symptoms. Examination today reveals no evidence of recurrence disease. She was diagnosed with pancreatic cancer and underwent a Whipple procedure. Her most recent mammogram of 04/19/2023 revealed no mammographic evidence of malignancy. Will be due for mammogram in April 2024. She should return to our office in approximately 1 year but is welcome to call sooner for any concerns. Orders: Orders 2 MM screening mammo BI Today D05.12 - Intraductal carcinoma in situ of left breast Coding Level of Care Code Est Pt Level 3 (79449) Complex EM visit Add On G2211 Diagnoses Ductal carcinoma in situ (DCIS) of left breast D05.12 Laterality: left Ductal carcinoma in situ of left breast D05.12
[2024-04-10 11:08] VITALS: BP 172/75; PULSE 70; BMI 18.7
== END 2024-04-10 11:35 | disposition home or self-care (01) ==
PROVIDERS: PCP Internal Medicine; Visit Provider Surgery
DX: D05.12 Intraductal carcinoma in situ of left breast (principal)
CPT/HCPCS: 99213; G2211

== ENCOUNTER → 2024-04-10 11:01 | Outpatient (BNVA) | payer MEDICARE, SELFPAY | PROVIDERS: PCP Internal Medicine; Visit Provider Surgery | DX: D05.12 Intraductal carcinoma in situ of left breast (principal) | CPT/HCPCS: 99212 ==

== ENCOUNTER 2024-05-07 10:48 | Outpatient (AMB) | payer MEDICARE, SELFPAY ==
[2024-05-07 11:05] VITALS: BP 128/60; PULSE 78; O2SAT 97; BMI 18.8
--- NOTE | 2024-05-07 11:05 | AM.OFFVISMDC ---
Intake Vital Signs 05/07/24 11:05 Height 5 ft 5 in Weight 113 lb BMI 18.8 BP 128/60 Blood Pressure Location Lt brachial Position Sitting Pulse 78 Pulse Source Pulse Oximeter Pulse Oximetry (%) 97 Oxygen Delivery Method Room Air Intake Visit Reasons: SWV G0439 Intake Note: Pt is here today for her AWV: bone density scan 04/11/21 Allergies amoxicillin [Amoxicillin] Allergy (Unknown, Verified 05/07/24 11:28) NAUSEA, vomiting, severe GI problems Medication List - Last Reconciled 05/07/24 by Carmen Lara MD bisacodyl (Fleet Bisacodyl) 1 bottle rectally night before procedure, repeat 2 hours before procedure; dexamethasone 4 mg PO BID metoprolol succinate ER 25 mg PO DAILY ondansetron 8 mg PO Q8H HPI SWV G0439 HPI Details AWV ? 83 year old lady with past medical history of ductal carcinoma in Situ of left breast, hypertension, hyperlipidemia, and currently being treated for adenocarcinoma of pancreas, presents for her ? Annual Wellness Visit, initial visit.? She has been feeling well currently receiving chemotherapy, being followed by Dr. Sheets, Last mammogram was done 04/19/2023, no longer gets cervical cancer screenings or colonoscopies with last 1 done 03/21/[address] Nunez showing only presence of diverticulosis and internal hemorrhoids. Her last fasting lipid panel and fasting blood sugar were checked 11/02/2022 with normal findings. Last bone density was in 2018 which showed presence of osteopenia in multiple sites. No history of fractures. She is up-to-date with her pneumococcal vaccination, does not want to get shingles vaccine or the COVID booster or flu vaccine. ? Medical / Social History Reviewed? Past Medical History ?Yes . ? [place] of Care / Care Team list updated ?Yes . ? Surgical/Hospitalization History ?Yes . ? Current Medications (including OTC and supplements) ?Yes . ? Family History ?Yes . ? Tobacco Control form ?Yes . ? AUDIT-C (Alcohol use) form ?Yes . ? Illicit drug use in Social History ?Yes . ? Current diagnosis of depression? ?No ? Appropriate PHQ2/PHQ9 completed ?Yes . ? Data entered by ?Country Manager and reviewed by provider ? Fall Risk ? Fall History? Have you had any falls with injury in the past year? ?No . ? Have you had two or more falls in the past year? ?No . ? Fall Risk Assessment: ?No falls in the past year . ? HRA filled out by the patient, reviewed by Provider and scanned. ?? AWV ? Balance? [place] ?Yes . ? Tandem walk ?Yes . ? Walk and Turn ?Yes . ? Rise from sit to stand ?Yes . ?Vision? Corrective lens ?no ? Vision screen ? Up-to-date, goes to [facility] ?Hearing? Whisper test ?pass . ?Written Plan?Completed. See Patient Documents.? HPI Comments History of Present Illness Details [facility] Medical History Adenocarcinoma of pancreas Osteoarthritis of both sacroiliac joints Osteoarthritis of hips, bilateral Osteopenia of multiple sites Ductal carcinoma in situ of left breast Dyslipidemia Essential hypertension H/O cyst of breast Surgical History History of pancreatectomy (09/26/22) H/O Whipple procedure History of eyelid surgery Hx of tonsillectomy History of cataract surgery Status post left breast lumpectomy H/O colonoscopy Family History Father No problems noted. Mother No problems noted. Sister H/O thyroid disease Cancer Social History Household Members: Significant Other Housing: House Are you a primary child care assistant to a significant other at home: No Do you presently have visiting nurse or other home services: Yes (3x a week) Alcohol intake: never Patient Tobacco Use Status: Never used Tobacco e-Cigarette/Vaping Use: Never Used Second Hand Smoke Exposure: No Advance Directives Date on File: 06/19/22 service: No Current occupational status: retired Cognitive needs: No Hearing needs: No Vision needs: No Questionnaire Medicare Wellness Checkup What is your age?: 82 or older What gender do you identify with?: female During the past 4 weeks, how much have you been bothered by emotional problems such as feeling anxious, depressed, irritable, sad or downhearted, and blue?: quite a bit During the past 4 weeks, has your physical & emotional health limited your social activities with family, friends, neighbors, or groups?: moderately During the past 4 weeks, how much bodily pain have you generally had?: mild pain During the past 4 weeks, was someone available to help you if you needed & wanted help?: yes, some During the past 4 weeks, what was the hardest physical activity you could do for at least 2 minutes?: moderate Can you get to places out of walking distance without help? (For eg., can you travel alone on buses, taxis or drive your car?): Yes Can you go shopping for groceries or clothes without someone's help?: Yes Can you prepare your own meals?: Yes Can you do your housework without help?: No Because of any health problems, do you need the help of another person with your personal care needs such as eating, bathing, dressing or getting around the house?: Yes Can you handle your own money without help?: Yes During the past 4 weeks, how would you rate your health in general?: good During the past 4 weeks how have things been going for you?: good & bad parts about equal Are you having difficulties driving your car?: no Do you always fasten your seat belt when you are in a car?: yes, usually During past 4 weeks, have you been bothered by the following: sometimes: Teeth or denture problems? and Tiredness or fatigue? Have you fallen 2 or more times in the past year?: No Are you afraid of falling?: No Are you a smoker?: no During the past 4 weeks, how many drinks of wine, beer, or other alcoholic beverages did you have?: no alcohol at all Do you exercise for about 20 minutes 3 or more times a week?: yes, some of the time Have you been given information to help with the following?: yes: Hazards in your house that might hurt you? and yes: Keeping track of your medications? How often do you have trouble taking medicines the way you have been told to take them?: I always take medicine as prescribed How confident are you that you can control & manage most of your health problems?: not very confident What is your race?: White Mini Mental State Exam (MMSE) Orientation What is the (year) (season) (date) (day) (month)?: year (2023), season (Fall), date (05/07/2024), day () and month (April) Where are we (state) (county) (town or city) (hospital) (floor)?: state ([place]), [facility] ([place]), town or city ([place]), hospital/clinic ([facility]) and floor Score Score: 10 Activity of Daily Living Bathing - sponge bath, tub bath or shower: receives no assistance (gets in/out by self, if usual bathing means Dressing - getting clothes from closets & drawers, including inner/outer garments & fasteners.: gets clothes & gets completely dressed without help Toileting - going to the 'toilet room' for urine/bowel elimination & cleaning self/arranging clothes: goes to toilet room, cleans self, arranges clothes without help Transfer: moves in & out of bed and chair without help (may use support object) Continence: controls urination/bowel movements completely by self Feeding: feeds self without help Total Score: 0 Information obtained from: patient Using telephone: independent Traveling: independent Shopping: needs assistance Preparing meals: needs assistance Housework: needs assistance Taking medicine: independent Managing money: independent PHQ-9 Over the last 2 weeks, how often have you been bothered by any of the following problems? 1. Little interest or pleasure in doing things: several days (Especially when having her chemotherapy treatments) 2. Feeling down, depressed, or hopeless: not at all 3. Trouble falling or staying asleep, or sleeping too much: several days 4. Feeling tired or having little energy: more than half the days 5. Poor appetite or overeating: not at all 6. Feeling bad about yourself - or that you are a failure or have let yourself or your family down: not at all 7. Trouble concentrating on things, such as reading the newspaper or watching television: not at all 8. Moving or speaking so slowly that other people could have noticed. Or the opposite - being so fidgety or restless that you have been moving around a lot more than usual: not at all 9. Thoughts that you would be better off or of hurting yourself in some way: not at all Total score: 4 Depression Screening Interpretation: Negative Depression Screening Done: Yes 34101 - PHQ-9 Billing: Yes Source: Developed by Drs. Francis Ovalle, Anne Castillo, Humble Luz and colleagues, with an educational rachel from [employer]. Physical Exam Vital Signs: Last Vital Signs Pulse 78 05/07/24 11:05 BP 128/60 05/07/24 11:05 Pulse Ox 97 05/07/24 11:05 Oxygen Delivery Method Room Air 05/07/24 11:05 BMI result Body Mass Index 18.8 Results Reviewed Results Reviewed: fredis: Kelli Lopez Age/Sex: 83/F : 1940 Unit#: [id number] Attend Dr: Wilman Sheets MD Re04/29/24 Status: REG RCR Location: .ONC Disch: SPEC : [id number] FITO: 04/27/24 STATUS: COMP REQ : [id number] RECD: 04/27/[address]: Wilman Sheets MD COMP: 04/27/24 ENTERED: 04/27/24 [facility] DR: Carmen Lara MD ORDERED: CBC Auto Diff Test Result Flag Reference WBC 3.7 L 4.8-10.8 X10*3/uL RBC 3.23 L 4.20-5.50 X10*6/uL HGB 10.2 L 12.0-16.0 g/dl HCT 31.5 L 37.0-47.0 % MCV 97.5 80.0-98.0 fL MCH 31.6 27.0-33.0 pg MCHC 32.4 31.0-35.0 g/dl RDW 16.8 H 11.0-16.0 % PLT 165 # 160-400 X10*3/uL MPV 9.5 9.4-12.3 fL Neut Pct Auto 51.6 45-73 % ImGran Pct Auto 0.3 0.0-0.4 % Lymp Pct Auto 31.4 20-40 % [place] Pct Auto 14.3 H 2-11 % Eos Pct Auto 1.6 0-4 % Baso Pct Auto 0.8 0-2 % NRBC Pct Auto 0.0 0.0-0.2 /100WBC ANC Neut Abs # 1.9 L 2.0-8.3 x10*3/uL ImGran Abs Auto 0.01 0.00-0.03 X10*3/uL Lymph Abs Auto 1.2 1.2-4.9 X10*3/uL [place] Abs Auto 0.5 0.1-1.2 X10*3/uL Eos Abs Auto 0.1 0.0-0.4 X10*3/uL Baso Abs Auto 0.0 0.0-0.2 X10*3/uL NRBC Abs Auto 0.000 0.0-0.012 X10*3/uL fredis: Kelli Lopez Age/Sex: 83/F : 1940 Unit#: [id number] Attend Dr: Wilman Sheets MD Re04/29/24 Status: REG RCR Location: HO.ONC Disch: SPEC : [id number] FITO: 04/27/24 STATUS: COMP REQ : [id number] RECD: 04/27/[address]: Wilman Sheets MD COMP: 04/27/24 ENTERED: 04/27/[address]: Carmen Lara MD ORDERED: CMP Test Result Flag Reference Sodium 141 135-145 mmol/L Potassium 3.7 3.3-5.1 mmol/L CL 111 H 96-108 mmol/L CO2 26 22-29 mmol/L Gap 8 L 12-20 BUN 9 9-16 mg/dL Creat 0.55 0.5-1.4 mg/dL Estimated CrCl 66.5 Provided height and weight: 165.1 cm, 52.5 kg. eGFR (calculated from the MDRD study equation) and eCrCl (calculated from the Cockcroft-Gault equation) are based on different parameters and may not yield comparable results. If eCrCl result is absurd, please check patient's height/weight. EGFR > 60 NOTE: For -[place] individuals, multiply the result by 1.210. Chronic Kidney Disease: Estimated GFR < 60 mL/min/1.73m2 Severe Kidney Disease: Estimated GFR < 15 mL/min/1.73m2 Glucose, Random 84 60-115 mg/dL CA 8.4 8.4-10.2 mg/dL Total Bili 0.8 0.0-1.0 mg/dL AST (GOT) 52 H 5-31 U/L ALT (GPT) 33 H 0-31 U/L Protein, Total 5.6 L 6.5-8.0 g/dL Alb 3.3 L 3.5-5.0 g/dL Alk Phos 227 H 39-117 U/L Assessment & Plan Assessment & Plan (1) Encounter for initial annual wellness visit (AWV) in Medicare patient: Code(s): Z00.00 - Encounter for general adult medical examination without abnormal findings Plan: Medical wellness checklist reviewed discussed with patient and updated. Patient already up-to-date with her healthcare proxy and MOLST form. (2) Essential hypertension: Code(s): I10 - Essential (primary) hypertension Plan: Blood pressure at goal of less than 130/80. Continue with metoprolol succinate ER 25 mg 1 daily. Reinforced importance of following a low sodium diet, getting regular exercise, and lowering stress levels. (3) Osteopenia of multiple sites: Code(s): M85.89 - Other specified disorders of bone density and structure, multiple sites Plan: Continue with regular exercise, take adequate calcium from dietary sources and take at least 2000 units vitamin-D daily (4) Adenocarcinoma of pancreas: Code(s): C25.9 - Malignant neoplasm of pancreas, unspecified Plan: Currently undergoing chemotherapy, followed by Dr. Sheets Quality Reporting (2019) Depression/Bipolar (159/160/161/177) PHQ-9: Total score: 4 Coding Level of Care Code Medicare First (G0438) Diagnoses Encounter for initial annual wellness visit (AWV) in Medicare patient Z00.00 Essential hypertension I10 Osteopenia of multiple sites M85.89 Adenocarcinoma of pancreas C25.9 CPT Codes Advance Care Planning - Advance Care Planning discussion: On file, no changes ([id number]) Advance Care Planning - Time spent: 1-15 minutes, on File ([id number]) Advance Care Planning Advance Care Planning discussion: On file, no changes Date of discussion: 05/10/24 Who was present: patient Forms completed: Health Care Proxy and MOLST Time spent: 1-15 minutes, on File Actual minutes spent: 2
== END 2024-05-07 12:43 | disposition home or self-care (01) ==
PROVIDERS: PCP Internal Medicine; Visit Provider Internal Medicine
DX: Z00.00 Encounter for general adult medical examination without abnormal findings (principal); I10 Essential (primary) hypertension; M85.89 Other specified disorders of bone density and structure, multiple sites; C25.9 Malignant neoplasm of pancreas, unspecified

== ENCOUNTER → 2024-05-07 10:48 | Outpatient (BNVA) | payer MEDICARE, SELFPAY | PROVIDERS: PCP Internal Medicine; Visit Provider Internal Medicine ==

== ENCOUNTER 2024-05-29 09:08 | Outpatient (REF) | payer MEDICARE, SELFPAY ==
--- NOTE | ~2024-05-29 | MM_ITS ---
EXAMINATION: MM SCREENING DIGITAL BREAST TOMOSYNTHESIS, BILATERAL CLINICAL INFORMATION: Screening. Asymptomatic. COMPARISON: Mammography: Comparison is made with available priors TECHNIQUE: Digital breast mammography with tomosynthesis is performed in both the craniocaudal and mediolateral oblique views along with computer-aided detection (CAD). FINDINGS: The breasts are extremely dense, which lowers the sensitivity of mammography (ACR BI-RADS breast composition Category d). Surgical changes in the left breast are stable. There are no significant masses, abnormal calcifications, or other abnormalities. MM/MM tomosynthesis screening BI IMPRESSION: No mammographic evidence of malignancy. ASSESSMENT: BI-RADS BI-RADS 2 - Benign Findings RECOMMENDATION: Routine annual mammography screening. 1 year F/U This examination should not preclude the clinical evaluation of a suspicious palpable abnormality. This patient's information was entered into a reminder system with a target due date for their next mammogram. Electronically signed by: Teresa Gaxiola DO 06/08/2024 09:08 AM ROB
== END 2024-05-29 09:09 | disposition home or self-care (01) ==
LOC: HO.MAMMO 09:08
PROVIDERS: PCP Internal Medicine; Visit Provider Surgery
DX: Z12.31 Encounter for screening mammogram for malignant neoplasm of breast (principal)
CPT/HCPCS: 77063; 77067

== ENCOUNTER → 2024-05-29 09:15 | Outpatient (BNV) | payer MEDICARE, SELFPAY | PROVIDERS: PCP Internal Medicine; Visit Provider Internal Medicine | DX: Z12.31 Encounter for screening mammogram for malignant neoplasm of breast (principal) | CPT/HCPCS: 77063; 77067 ==

== ENCOUNTER 2024-07-15 12:21 | Outpatient (REF) | payer MEDICARE, SELFPAY ==
--- NOTE | ~2024-07-15 | CT_ITS ---
EXAMINATION: CT CHEST WITH CONTRAST CLINICAL INFORMATION: Pancreatic cancer. Lung nodules. COMPARISON: CT dated December 25, 2023. TECHNIQUE: Multidetector volumetric CT imaging of the chest was obtained after the administration of 85 mL of Omnipaque 350 intravenous contrast without immediate adverse reactions. Axial MIP volume rendering provided. Sagittal and coronal reformatted images were obtained. This CT examination was performed using dose optimization techniques as appropriate, variously including the following: *Automated exposure control *Adjustment of mA and/or kV according to patient size (this includes techniques or standardized protocols for targeted exams where dose is matched to indication/reason for exam; i.e. extremities or head) *Use of iterative reconstruction technique. Total dose: 280 mGy-cm. FINDINGS: Bilateral apical lung scarring. There is a 4 mm groundglass pulmonary nodule, right upper lung lobe, likely apical segment. Linear and patchy pulmonary groundglass in the periphery of the right middle lobe. Linear and patchy pulmonary groundglass, lung bases. No consolidation, pleural fissure pneumothorax. No bronchiectasis. No honeycombing. Respiratory where is patent. No lymphadenopathy, mediastinum or perihilar. No axillary lymphadenopathy. No pericardial effusion. 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 No aneurysm or dissection, thoracic aorta. Calcified plaques in the thoracic aortic arch and its main branches and the coronary arteries. Multilevel thoracic spondylosis. No acute fracture or listhesis. Osteopenia versus osteoporosis. No lytic or blastic lesions. Right-sided Port-A-Cath tip ends in the SVC. Pneumobilia. CT/CT chest w IV con IMPRESSION: Overall stable appearance of the lungs. No new findings. Fleischner guidelines were followed. Electronically signed by: Fermin Estrada MD 07/15/2024 03:54 PM EST
--- NOTE | ~2024-07-15 | CT_ITS ---
EXAMINATION: CT ABDOMEN AND PELVIS WITH CONTRAST CLINICAL INFORMATION: Pancreatic cancer on chemotherapy. Follow-up. COMPARISON: CT dated December 25, 2023. TECHNIQUE: Multidetector volumetric images were obtained from the superior aspect of the liver through the pubic symphysis following administration 85 mL of Omnipaque 350 intravenous contrast. Sagittal and coronal reformatted images were obtained on the technologist's workstation. Oral contrast: [address] examination was performed using dose optimization techniques as appropriate, variously including the following: *Automated exposure control *Adjustment of mA and/or kV according to patient size (this includes techniques or standardized protocols for targeted exams where dose is matched to indication/reason for exam; i.e. extremities or head) *Use of iterative reconstruction technique. Total dose: 280 mGy centimeters FINDINGS: LUNG BASES: Please refer to the CT chest. LIVER, GALLBLADDER, AND BILIARY TREE: Liver measures 17 cm. Pneumobilia. Mild intrahepatic biliary ductal dilatation. Main portal veins, hepatic veins and intrahepatic portion of the IVC are patent. Cholecystectomy. PANCREAS: There is a 2.8 cm low density measuring 55 Hounsfield units centered in the region of the brandy hepatic/head of the pancreas resection site/related to the stomach/small bowel loops. Pneumobilia and mild intrahepatic biliary ductal dilatation. There is a stent within the pancreatic duct at the tail and body junction probable extending into the intestine.. SPLEEN: 9 cm. No focal mass. ADRENAL GLANDS: No nodular lesions. KIDNEYS AND URETERS: No hydronephrosis. No gross renal mass. Normal enhancement pattern of the renal parenchyma. BLADDER: Fluid-filled. GASTROINTESTINAL TRACT: Abundant stool within the large intestine. Questionable wall thickening versus poor distention in the sigmoid colon. No pneumatosis intestinalis. No pneumoperitoneum. No ascites. Terminal ileum is normal. Appendix is normal. Small hiatal hernia. ABDOMINAL WALL: No gross umbilical hernia. LYMPH NODES: Prominent, nonspecific lymph nodes in the retroperitoneum. VASCULAR: Calcified plaques in the mesenteric arteries abdominal aorta and iliac artery graves. No aneurysm or dissection abdominal aorta. Calcified plaques in the origin of the main renal arteries. PELVIC VISCERA: No gross lesion in the adnexa. OSSEOUS STRUCTURES: Multilevel thoracolumbar spondylosis. Grade 1 anterolisthesis L4-5. Grade 1 retrolisthesis L5-S1. No gross lytic or blastic lesions. Probable bony island at L2 and left iliac bone. Osteoarthrosis both coxofemoral joints. No acute fracture. Edema pattern the soft tissues of the abdomen and pelvis wall and symphysis pubis region. CT/CT abdomen pelvis w IV con IMPRESSION: 2.8 cm low density at the brandy hepatic/head of pancreas resection site which may be related to a prominent small intestinal loop. Underlying lesion cannot be excluded. Nonspecific prominent lymph nodes, retroperitoneum. Persistent pneumobilia and mild intrahepatic biliary ductal dilatation. Fleischner guidelines were followed. Electronically signed by: Fermin Estrada MD 07/15/2024 04:07 PM ROB
[2024-07-15] MEDS: iohexoL 350 MG/ML 100 ML INFUS..BTL 85 ML IV (15:02)
[2024-07-15] MEDS: Barium Sulfate Oral (Mocha) 450 ML ORAL.SUSP 900 ML PO (15:02)
== END 2024-07-15 12:22 | disposition home or self-care (01) ==
LOC: HO.CT 12:21
PROVIDERS: PCP Internal Medicine; Visit Provider Internal Medicine Medical Oncology
DX: C25.9 Malignant neoplasm of pancreas, unspecified (principal)
CPT/HCPCS: 71260; 74177; Q9967

== ENCOUNTER → 2024-07-15 12:24 | Outpatient (BNV) | payer MEDICARE, SELFPAY | PROVIDERS: PCP Internal Medicine; Visit Provider Radiology Diagnostic Radiology | DX: K68.9 Other disorders of retroperitoneum (principal); K83.8 Other specified diseases of biliary tract; R91.1 Solitary pulmonary nodule; C25.9 Malignant neoplasm of pancreas, unspecified | CPT/HCPCS: 71260; 74177 ==

== ENCOUNTER 2024-08-20 06:57 | Day surgery (SDC) | payer MEDICARE, SELFPAY ==
[2024-08-18 14:58] VITALS: BMI 20.4
--- NOTE | 2024-08-19 09:15 | P.CONAN_ITS ---
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 Coats and undergoing adjuvant chemo through Dr Sheets's office. Pt referred back to our office after recent CT scan from December showed thickening of the stomach and duodenum as well as rectum. On review of imaging pt was also noted to have hyperintense lesions in the peripheral R lobe of liver surrounding the bile ducts. 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 Mother No problems noted. Sister H/O thyroid disease Cancer Family history of problems with anesthesia: No Surgical History Surgical History Hx of endoscopic retrograde cholangiopancreatography History of pancreatectomy (09/26/22) H/O Whipple procedure History of eyelid surgery Hx of tonsillectomy History of cataract surgery Status post left breast lumpectomy H/O colonoscopy History of Problems with Anesthesia: No Social History Social History Household Members: Significant Other Housing: House Are you a primary childbirth and infant care teacher to a significant other at home: No Do you presently have visiting nurse or other home services: No Alcohol intake: never Patient Tobacco Use Status: Never used Tobacco e-Cigarette/Vaping Use: Never Used Second Hand Smoke Exposure: No Have you been hit, kicked, punched, or otherwise hurt by someone within the past year? If so, by whom?: No Are you DNR?: No Advance Directives: No Advance Directives Information Provided: Yes Advance Directives Date on File: 06/19/22 Recently lost weight without trying: No Nutrition Risks: No Nutritional Risk service: No Current occupational status: retired Cognitive needs: No Hearing needs: No Vision needs: No Meds Allergies Allergy/AdvReac Type Severity Reaction Status Date / Time amoxicillin [Amoxicillin] Allergy Unknown NAUSEA, Verified 08/20/24 07:30 vomiting, severe GI problems Exam Height,Weight and Vital Signs: Height 5 ft 3 in Weight 52.163 kg Pertinent Lab Results Pertinent Lab Results: Laboratory Tests 08/10/24 09:20 WBC 5.3 Hgb 11.3 L Hct 33.9 L Plt Count 217 D Sodium 141 Potassium 3.2 L Chloride 107 Carbon Dioxide 26 BUN 9 Creatinine 0.57 Assessment and Plan Assessment Anesthesia Assessment: Chart Reviewed Final Anesthetic Review Family History of Problems with Anesthesia: No History of Problems with Anesthesia: No Documented by User: Awilda Dunn MD 08/20/24 07:31 [facility] Past Medical History Medical History Port-A-Cath in place Adenocarcinoma of pancreas 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 Mother No problems noted. Sister H/O thyroid disease Cancer Surgical History Surgical History Hx of endoscopic retrograde cholangiopancreatography History of pancreatectomy (09/26/22) H/O Whipple procedure History of eyelid surgery Hx of tonsillectomy History of cataract surgery Status post left breast lumpectomy H/O colonoscopy Social History Social History Household Members: Significant Other Housing: House Are you a primary childbirth and infant care teacher to a significant other at home: No Do you presently have visiting nurse or other home services: No Alcohol intake: never Patient Tobacco Use Status: Never used Tobacco e-Cigarette/Vaping Use: Never Used Second Hand Smoke Exposure: No Have you been hit, kicked, punched, or otherwise hurt by someone within the past year? If so, by whom?: No Are you DNR?: No Advance Directives: No Advance Directives Information Provided: Yes Advance Directives Date on File: 06/19/22 Recently lost weight without trying: No Nutrition Risks: No Nutritional Risk service: No Current occupational status: retired Cognitive needs: No Hearing needs: No Vision needs: No Meds Allergies Allergy/AdvReac Type Severity Reaction Status Date / Time amoxicillin [Amoxicillin] Allergy Unknown NAUSEA, Verified 08/20/24 07:30 vomiting, severe GI problems Exam Airway Mallampati Class: II TM Dist: >3cm Neck ROM: Full Partial: Upper and Lower Assessment and Plan Assessment Anesthesia Assessment: Anesthesia Plan Discussed Final Anesthetic Review NPO: Yes ASA Class: III Final Preanesthetic Review: No Changes in Pt Med Stat, Meds/Allgs Chart Reviewed, Consent Obtained/Reviewed, Anes Risks/Benef Reviewed and DNR Form (If Appl.) Patient Risk: Intermediate Procedure Risk: Low Anesthetic Plan Anesthetic Plan: TIVA Disposition: Standard PACU
[2024-08-20 07:07] VITALS: BMI 18.4
[2024-08-20] MEDS: Lactated Ringers 1,000 ML 100 ML IVCONT (07:12)
[2024-08-20 07:29] VITALS: BP 171/78; PULSE 70; RESP 18; TEMP 36.6; O2SAT 97
[2024-08-20 07:53] VITALS: BP 146/65
--- NOTE | 2024-08-20 07:59 | MHC.SHP ---
Pre-Procedural Eval Section A - 24 Hr Update-Section A only Date of Service: 08/20/24 Section B - Complete if H&P > 30 days Chief Complaint: Gastritis, colitis Present Medications: see Short Stay Collaborative assessment Allergies: Allergies Allergy/AdvReac Type Severity Reaction Status Date / Time amoxicillin [Amoxicillin] Allergy Unknown NAUSEA, Verified 08/20/24 07:30 vomiting, severe GI problems Review of Systems Review of Systems Comment: Ten point ROS negative Exam Exam Comment: Gen appear: No acute distress HEENT: no icterus Chest: No overt resp distress Abd: soft, nontender, nondistended Psych: Stable affect, answering questions appropriately Neuro: A/Ox3 noted to move all extremities spontaneously Ext: no peripheral edema Plan Diagnosis/Plan: Unchanged I have reviewed the history and physical and performed a pertinent physical examination on my patient. No changes have occurred unless specified. Time Spent With Patient Time: Total time managing care of this patient today ____ minutes.
--- NOTE | 2024-08-20 08:37 | P.OPN-COLO_ITS ---
Colonoscopy Operative Note Operative Note Date of Service: 08/20/24 Narrative: Procedure: Upper endoscopy and colonoscopy Indication: Abnormal imaging, gastritis, colitis Endoscopist: Billie Lawson MD Anesthesia Provider: Awilda Dunn MD Anesthesia type: MAC Instrument: GIF-H190 and [id number]-[id number] EGD Procedure:?? The procedure, indications, preparation and potential complications were reviewed with the patient, who indicated understanding and gave written informed consent to proceed. The endoscope was introduced through the mouth, and advanced to the 2nd part of the duodenum. The mucosa was carefully examined on slow withdrawal of the endoscope. The patient tolerated the procedure well. There were no immediate complications.? EGD Findings:? * Esophagus:? Normal esophageal mucosa was noted. The Z-line was at 32 cm displaced upwards by diaphragmatic hernia with the diaphragmatic pinch at 36 cm. * Stomach:? Normal gastric mucosa. Retroflexion was performed in the cardia. Cold forceps biopsies as per Fior protocol were taken for gastric mapping. * Duodenum:? Erythema in duodenal bulb. Evidence of pancreaticoduodenectomy with normal appearing choledochojejunostomy and gastrojejunostomy. Cold forceps biopsies were taken from small bowel. Colonoscopy Procedure:? The patient was then turned for the colonoscopy. A digital rectal exam was performed which was abnormal for ext hemorrhoids.? A distal attachment cap was affixed to the tip of the scope and the colonoscope was then inserted through the anus and advanced through the colon and advanced to the cecum at 75 cm.? Appendiceal orifice and ileocecal valve were identified. Mucosa was carefully examined under high definition white light as the instrument was slowly withdrawn in a retrograde panoramic fashion. Retroflexion was performed in rectum. The procedure was not difficult. The quality of the prep was BBPS: 2+2+2 = adequate Withdrawal time 9 minutes Limitations: No limitations Findings: Mucosa: Edema and loss of normal vascular pattern noted throughout the colon. Cold forceps biopsies were taken from the right and left side of the colon. Protruding lesions: * One sessile polyp of size 2 mm noted in the transverse colon. Cold forceps polypectomy was performed. The polyp was completely removed and retrieved. * Large internal hemorrhoids without stigmata of recent bleeding. Impression: 1. Normal esophagus 2. Hiatal hernia 3. Normal stomach (biopsy) 4. Gastrojejunostomy and choledochojejunostomy noted 5. Bulbar duodenitis (biopsy) 6. Abnormal colon mucosa (biopsy) 7. 1 polyp removed 8. Internal and external hemorrhoids Recommendations:?? * Follow-up path results * Pepcid Rxed for duodenitis * Will also review CT findings 07/[address] Coats
[2024-08-20 08:41] VITALS: BP 129/67; PULSE 62; RESP 18; TEMP 36.5; O2SAT 98
[2024-08-20 08:56] VITALS: BP 154/77; PULSE 62; RESP 18; TEMP 36.4; O2SAT 98
== END 2024-08-20 09:36 | disposition home or self-care (01) ==
PROVIDERS: PCP Internal Medicine; Visit Provider Internal Medicine
PROC: (CPT 45380; principal; 2024-08-20 07:30)
DX: K63.89 Other specified diseases of intestine (principal); D12.3 Benign neoplasm of transverse colon; K64.8 Other hemorrhoids; K64.4 Residual hemorrhoidal skin tags; K83.9 Disease of biliary tract, unspecified; K52.9 Noninfective gastroenteritis and colitis, unspecified; K29.50 Unspecified chronic gastritis without bleeding; K29.80 Duodenitis without bleeding; K44.9 Diaphragmatic hernia without obstruction or gangrene; C25.9 Malignant neoplasm of pancreas, unspecified; K86.81 Exocrine pancreatic insufficiency; I10 Essential (primary) hypertension; Z79.899 Other long term (current) drug therapy; Z88.1 Allergy status to other antibiotic agents; Z90.410 Acquired total absence of pancreas; Z98.890 Other specified postprocedural states; Z90.49 Acquired absence of other specified parts of digestive tract; Z93.1 Gastrostomy status
CPT/HCPCS: 45380; 43239; 88305; 88313; 88342; J2003; J2704

== ENCOUNTER → 2024-08-20 06:57 | Outpatient (BNV) | payer MEDICARE, SELFPAY | PROVIDERS: PCP Internal Medicine; Visit Provider Internal Medicine | DX: R93.3 Abnormal findings on diagnostic imaging of other parts of digestive tract (principal); K29.70 Gastritis, unspecified, without bleeding; K29.80 Duodenitis without bleeding; K52.9 Noninfective gastroenteritis and colitis, unspecified; D12.3 Benign neoplasm of transverse colon; K64.8 Other hemorrhoids | CPT/HCPCS: 43239; 45380 ==

== ENCOUNTER 2024-10-14 11:34 | Outpatient (AMB) | payer MEDICARE, SELFPAY ==
[2024-10-14 11:39] VITALS: BP 152/70; PULSE 61; BMI 18.7
--- NOTE | 2024-10-14 11:39 | A.OFFVIS_ITS ---
Vital Signs 3 10/14/24 11:39 Height 5 ft 5 in Weight 112 lb 6.972 oz BMI 18.7 BP 152/70 H Blood Pressure Location Lt brachial Position Sitting Pulse 61 Intake Visit Reasons: S/P Sigmoidoscopy Intake Note: Kelli presents in the office as a follow up to her procedure. CC: States she is not having concerns - just here today for her results. 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 Coats and undergoing adjuvant chemo through Dr Sheets's office. Pt referred back to our office after recent CT scan from December showed thickening of the stomach and duodenum as well as rectum. On review of imaging pt was also noted to have hyperintense lesions in the peripheral R lobe of liver surrounding the bile ducts. See below. 08/20/24 EGD/colo 1. Normal esophagus 2. Hiatal hernia 3. Normal stomach (biopsy) 4. Gastrojejunostomy and choledochojejunostomy noted 5. Bulbar duodenitis (biopsy) 6. Abnormal colon mucosa (biopsy) 7. 1 polyp removed 8. Internal and external hemorrhoids A. Small bowel, biopsy: Small intestinal mucosa within normal limits. B. Stomach, antrum lesser curvature, biopsy: Antral-type mucosa with mild chronic inactive inflammation; no Helicobacter organisms seen. C. Stomach, antrum greater curvature, biopsy: Antral-type mucosa with mild chronic inactive inflammation; no Helicobacter organisms seen. D. Stomach, incisura, biopsy: Antral-type mucosa with moderate chronic inactive inflammation; no Helicobacter organisms seen. E. Stomach, body lesser curvature, biopsy: Oxyntic mucosa within normal limits; no Helicobacter organisms seen. F. Stomach, body greater curvature, biopsy: Antral-type and oxyntic mucosa with mild chronic inactive inflammation; no Helicobacter organisms seen. G. Colon, right, biopsy: Colonic mucosa within normal limits. H. Colon, transverse, polypectomy: Tubular adenoma; negative for high-grade dysplasia or carcinoma. I. Colon, left, biopsy: Colonic mucosa within normal limits 10/14/24: Here for post egd/colo follow up. REports no abd pain, N,V. Taking famotidine daily at bedtime. Aware of CT results and suspicion for disease recurrence. On FOLFOX through Onc. Taking a break from chemo for East week, will resume later this week. Results of EGD/colo reviewed - no abnl correlating with CT abd/pel feb 2024. In fact most recent CT from Jul with normal GI tract anyway. 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 Mother No problems noted. Sister H/O thyroid disease Cancer Social History Household Members: Significant Other Housing: House Are you a primary home care liaison to a significant other at home: No Do you presently have visiting nurse or other home services: No Alcohol intake: never Patient Tobacco Use Status: Never used Tobacco e-Cigarette/Vaping Use: Never Used Second Hand Smoke Exposure: No Advance Directives Date on File: 06/19/22 service: No Current occupational status: retired Cognitive needs: No Hearing needs: No Vision needs: No Review of Systems Const All systems reviewed & are unremarkable except as noted in HPI and below Physical Exam Vital Signs: Last Vital Signs Pulse 61 10/14/24 11:39 BP 152/70 H 10/14/24 11:39 BMI result Body Mass Index 18.7 No apparent distress Nonicteric Abdomen soft, nondistended Alert and oriented x3, normal gait Assessment & Plan Assessment & Plan (1) Adenocarcinoma of pancreas: Code(s): C25.9 - Malignant neoplasm of pancreas, unspecified Category: Medical (2) H/O Whipple procedure: Code(s): Z90.410 - Acquired total absence of pancreas; Z90.49 - Acquired absence of other specified parts of digestive tract Category: Surgical (3) Bile duct abnormality: Code(s): K83.9 - Disease of biliary tract, unspecified Category: Medical Plan No endoscopically apparent gastritis or proctitis noted to correlate with CT findings 02/2024. Most recent normal anyways from GI tract standpoint. Reviewed that soft tissue focus on most recent CT suspicious for post-op recurrence as per discussion with Dr Coats after her scopes on 08/20. This was reviewed with her oncologist over the phone on the same day. Will also review benefit of repeat imaging and/or cont'd chemo with oncologist. PRN follow up with GI Coding Level of Care Code Est Pt Level 4 (85562) Diagnoses Adenocarcinoma of pancreas C25.9 H/O Whipple procedure Z90.410; Z90.49 Bile duct abnormality K83.9
--- OUTSIDE RECORDS SUMMARY | 2024-10-14 13:42 | XMS_ITS ---
Author Organization [facility] Address [address] [place] [address] Care Team Providers Care Fire Alarm Repairer Name Role Phone Jane URIBE, Carmen Mercer Primary Care Provider Un available Anay Pena Unavailable [phone] REASON FOR VISIT JEWEL SORTER No Show Encounters Encounter Location Date Provider Diagnosis [facility] [address] [place] [address] 09/30/2024 Anay Pena Plan Of Treatment Next Appt Details Provider Name:Anay dudley, 12/09/2024 02:00:00 PM, [address] [place], [address], Progress Notes * Kelli ADDISONDOB:1940 (84 yo F)Acc No.[id number]:09/30/2024 Patient:?RADHAMANRosie Garciaia :1940???Age:84 Y???Sex:Female Address: [place] [address] * true * Date:? Generated for Printi jean marie/Robert/eTransmitting on:?10/14/2024 01:42 PM EDT
--- OUTSIDE RECORDS SUMMARY | 2024-10-14 13:43 | XMS_ITS | Patient Health Record ---
Author Organization [facility] Address [address] [place] [address] Care Team Providers Care Shaft Repairer Name Role Phone Jane URIBE, Carmen Mercer Primary Care Provider Un available Anay Pena Unavailable [phone] Reason For Referral No Information Social History Tobacco Use: Social History Observation [...] Negative Encounters Encounter Location Date Provider Diagnosis [address] [address] 09/30/2024 Anay Pena Plan Of Treatment Next Appt Details Provider Name:Anay dudley, 12/09/2024 02:00:00 PM, [address] [place], [address], Insurance Providers Payer Name Payer Address Payer Phone Subscriber Number Group Number Insured Name Patient Relationship to Insured Coverage Start Date Coverage End Date [employer] [place] Medicare Advantage [address] [facility] [place] [id number] Kelli Lopez Self - patient is the insured Medical (General) History Medical History History ICD Code Cancer High Blood Pressure
--- OUTSIDE RECORDS SUMMARY | 2024-10-14 13:43 | XMS_ITS ---
Author Organization [facility] Address [address] [place] [address] Care Team Providers Care Wood Heel Back Liner Name Role Phone Jane URIBE, Carmen Mercer Primary Care Provider Un available Anay Pena Unavailable [phone] Social History Tobacco Use: Social History Observation [...] Negative Encounters Encounter Location Date Provider Diagnosis [address] [address] 09/30/2024 Anay Pena Plan Of Treatment Next Appt Details Provider Name:Anay dudley, 12/09/2024 02:00:00 PM, [address] [place] [address], [phone], Progress Notes * Kelli ADDISONDOB:1940 (84 yo F)Acc No.[id number]:09/30/2024 Progress Notes Patient:?Kelli ADDISON Provider:?Anay Pena DPM :1940???Age:84 Y???Sex:Female D ate:09/30/2024 Address: [place], [place] Pcp:Brooks Weathers Subjective: * Chief Complaints: * ??? * Medical History:?Cancer, Hig h Blood Pressure. * Family History:?Mother: dece ased.?Father: .? * Social History:?Tobacco Use:?Tobacco use other than smoking?Are you an other tobacco user??No ?Tobacco Control (Standard)?Tobacco use:?Nonsmoker ?Additional Findings: Tobacco non-user?Current nonsmoker ???Drugs/Alcohol:?Drugs?Have you used drugs other than those for medical reasons in the past 12 months??No ???Miscellaneous:?Caffeine: no. ?Children: yes, 3. ?Marital status: . ?Occupation: [employer]. ???Drug/Alcohol:?AUDIT-C (Standard)?Did you have a drink containing alcohol in the past year??No ?Points?0 ?Interpretation?Negative Objective: * Vitals:? Assessment: Plan: * Treatment: * Images: * The named appointment provid er may or may not be the originator of this progress note, and it is not deemed complete until electronically signed by the appointment provider. Sign off status: Pending * Provider:?Anay Pena DPM Date:? Generated for Jessica aj/Robert/Krishanitting on:?10/14/2024 01:42 PM EDT
== END 2024-10-14 12:43 | disposition home or self-care (01) ==
LOC: HO.HGI 11:36
PROVIDERS: PCP Internal Medicine; Visit Provider Internal Medicine
DX: C25.9 Malignant neoplasm of pancreas, unspecified (principal); Z90.410 Acquired total absence of pancreas; Z90.49 Acquired absence of other specified parts of digestive tract; K83.9 Disease of biliary tract, unspecified
CPT/HCPCS: 99214

== ENCOUNTER → 2024-10-14 11:34 | Outpatient (BNVA) | payer MEDICARE, SELFPAY | PROVIDERS: PCP Internal Medicine; Visit Provider Internal Medicine | DX: C25.9 Malignant neoplasm of pancreas, unspecified (principal); K83.9 Disease of biliary tract, unspecified; Z90.410 Acquired total absence of pancreas; Z90.49 Acquired absence of other specified parts of digestive tract | CPT/HCPCS: 99212 ==

== ENCOUNTER 2024-10-21 15:35 | Outpatient (REF) | payer MEDICARE, SELFPAY ==
--- NOTE | ~2024-10-21 | MR_ITS ---
CLINICAL HISTORY: Pancreatic carcinoma MR abdomen with and without contrast with MRCP Comparison: CT/AR/SR - CT ABDOMEN PELVIS W IV CON - 07/15/24 14:34 EST MR/AR/SR - MR ABDOMEN WO/W CON - 02/20/24 12:[address]/AR/SR - CT ABDOMEN PELVIS W IV CON - 12/25/23 11:23 EDT Findings: No signal abnormality of the lung bases. There is a new enhancing paravertebral lesion to the left T10 and T11 measuring 2.1 cm (series 3, image 14). Status post cholecystectomy. Pneumobilia. Mild intrahepatic biliary ductal dilatation. In the right lobe of the liver there is a subcapsular lesion redemonstrated which is hyperintense on the T2 weighted images, hypointense on the T1 weighted images and demonstrates enhancement on the postcontrast images which measures up to 3.4 cm, similar in size to the prior study. There is another lesion in the right lobe of the liver which measures 1.2 cm with similar signal characteristics, unchanged. There is a lesion with similar characteristics in the left lobe of the liver measuring 2.2 cm which was not definitively visualized on the prior study. Status post Whipple procedure. Stent within the pancreatic duct better seen on CT. The other solid organs are unremarkable. No bowel wall thickening or dilation. A normal appendix is identified. No aneurysm. Centrally necrotic lymph nodes are present in the upper abdomen measuring up to 3.1 cm in short axis. No ascites. Mild endplate edema of the inferior aspect of L3 on the left could be Modic type 1 change, unchanged. Hemangioma in L2 and L5. Impression: Centrally necrotic lymph nodes in the upper abdomen measuring up to 3.1 cm in short axis, presumed metastatic disease. New paravertebral lesion to the left of T10/T11 is also favored to be lymphadenopathy/metastatic disease. Indeterminate liver lesions. Attention on follow up is recommended; metastatic disease cannot be excluded. PET-CT may be helpful to further evaluate extent of metastatic disease. This document has been electronically signed by: Rasheeda Portillo MD on 10/21/2024 17:14:25
[2024-10-21] MEDS: gadobutroL 7.5 ML VIAL IVPUSH (16:35)
--- OUTSIDE RECORDS SUMMARY | 2024-10-21 18:05 | XMS_ITS ---
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 Generated for Printi jean marie/Robert/eTransmitting on:?10/21/2024 06:04 PM EDT
--- OUTSIDE RECORDS SUMMARY | 2024-10-21 18:05 | XMS_ITS ---
Author Organization [facility] Address [address] [place] [address] Care Team Providers Care Bowling Floor Desk Clerk Name Role Phone Jane URIBE, Carmen Mercer Primary Care Provider Un available Anay Pena Unavailable [phone] Social History Tobacco Use: Social History Observation [...] Negative Encounters Encounter Location Date Provider Diagnosis [address] [address] 09/30/2024 Anay Pena Plan Of Treatment Next Appt Details Provider Name:Anay dudely, 12/09/2024 02:00:00 PM, [address] [place] [address], [phone], Progress Notes * Kelli ADDISONDOB:1940 (84 yo F)Acc No.[id number]:09/30/2024 Progress Notes Patient:?Kelli ADDISON Provider:?Anay Pena DPM :1940???Age:84 Y???Sex:Female D ate:09/30/2024 Address: [place], [place] Pcp:Brooks Weathers Subjective: * Chief Complaints: * [...] ?Children: yes, 3. ?Marital status: . ?Occupation: [employer]. ???Drug/Alcohol:?AUDIT-C (Standard)?Did you have a drink containing [...] Pena DPM Date:? Generated for Jessica aj/Robert/Krishanitting on:?10/21/2024 06:04 PM EDT
--- OUTSIDE RECORDS SUMMARY | 2024-10-21 18:05 | XMS_ITS | Patient Health Record ---
Author Organization [facility] Address [address] [place] [address] Care Team Providers Care Dashboard Developer Name Role Phone Jane URIBE, Carmen Mercer Primary Care Provider Un available Anay Pena Unavailable [phone] Reason For Referral No Information Social History [...] Negative Encounters Encounter Location Date Provider Diagnosis [facility] [address] [place] [address] 09/30/2024 Anay Pena Plan Of Treatment Next Appt Details Provider Name:Anay dudley, 12/09/2024 02:00:00 PM, [address] [place], [address], Insurance Providers Payer Name Payer Address Payer Phone Subscriber Number Group Number Insured Name Patient Relationship to Insured Coverage Start Date Coverage End Date [employer] [place] [employer] Advantage [address] [facility] [place] [id number] Kelli oLpez Self - patient is the insured Medical (General) History Medical History History ICD Code Cancer High Blood Pressure
== END 2024-10-21 15:36 | disposition home or self-care (01) ==
LOC: HO.MRI 15:35
PROVIDERS: PCP Internal Medicine; Visit Provider Internal Medicine Medical Oncology
DX: C25.9 Malignant neoplasm of pancreas, unspecified (principal)
CPT/HCPCS: 74183; A9585

== ENCOUNTER → 2024-10-21 15:35 | Outpatient (BNV) | payer MEDICARE, SELFPAY | PROVIDERS: PCP Internal Medicine; Visit Provider Radiology Diagnostic Radiology | DX: C25.9 Malignant neoplasm of pancreas, unspecified (principal) | CPT/HCPCS: 74183 ==

== ENCOUNTER 2024-12-28 15:53 | Outpatient (REF) | payer MEDICARE, SELFPAY ==
--- NOTE | ~2024-12-28 | US_ITS ---
EXAMINATION: US TRIPLEX LOWER EXTREMITY, LEFT CLINICAL INFORMATION: Left leg edema. COMPARISON: None available. TECHNIQUE: Color-flow triplex imaging with spectral analysis and compression Doppler were performed on the left lower extremity. FINDINGS: Respiratory variation, normal compression and augmented flow are noted throughout the left lower extremity. The visualized common femoral vein, superficial femoral vein, profunda femoral vein, popliteal vein and midcalf peroneal and posterior tibial venous segments show no evidence of deep venous thrombosis. There is no Campos's cyst. Reactive appearing lymph nodes in the left groin. US/US venous duplex LE LT IMPRESSION: No evidence of deep venous thrombosis involving the left lower extremity. Electronically signed by: Nathan Bain MD 12/28/2024 04:37 PM EDT
--- OUTSIDE RECORDS SUMMARY | 2024-12-28 17:21 | XMS_ITS | Patient Health Record ---
Author Organization [facility] Address [address] [place] [address] Care Team Providers Care Ground Source Heat Pump Technician Name Role Phone Jane URIBE, Carmen Primary Care Provider Francis Huntley [phone] Allergies Allergen (clinical drug ingredient) Drug/Non Drug Allergy documented on EMR Reaction Allergy Type Onset Date Status amoxicillin Amoxicillin Unknown Drug Allergy Act zheng Reason For Referral No Information Medications Medication SIG (Take, Route, Frequency, Duration) Notes Start Date End Date Status Calcium Active Vitamin D3 1000 UNIT 1 capsule Orally On ce a day Active Atorvastatin Calcium 10 MG 1 tablet Oral ly Once a day Active Metoprolol Succinate ER 25 MG 1 tablet Orally Once a day Active Nasonex 50 MCG/ACT 2 sprays in each nos tril Nasally Once a day Active Problems Problem Type SNOMED Code ICD Code Onset Dates Problem Status W/U Status Risk Notes Problem 868524304 Encounter for screening for malignant neoplasm of colon (Z12.11) Active confirmed Problem [id number] Preprocedural examination (Z01.818) Active confirmed Plan Of Treatment Future Test Test Name Order Date COLONOSCOPY 12/07/2016 Insurance Providers Payer Name Payer Address Payer Phone Subscriber Number Group Number Insured Name Patient Relationship to Insured Coverage Start Date Coverage End Date [facility] [address] [place] [phone] [id number] JANUSZ ADDISON Self - patient is the insured Medical (General) History Medical History History ICD Code Negative colonoscopies in and in 2004, except for diverticulosis and internal hemorrhoids HTN Denies ND,DM,CVA,Lung disease,renal dise ase Hyperlipidemia Left-sided breast cancer as below--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
== END 2024-12-28 15:54 | disposition home or self-care (01) ==
LOC: HO.US 15:53
PROVIDERS: PCP Internal Medicine; Visit Provider Internal Medicine Medical Oncology
DX: R60.0 Localized edema (principal)
CPT/HCPCS: 93971

== ENCOUNTER → 2024-12-28 16:00 | Outpatient (BNV) | payer MEDICARE, SELFPAY | PROVIDERS: PCP Internal Medicine; Visit Provider Radiology Diagnostic Radiology | DX: R22.42 Localized swelling, mass and lump, left lower limb (principal) | CPT/HCPCS: 93971 ==

== ENCOUNTER 2025-04-13 09:51 | Outpatient (AMB) | payer MEDICARE, SELFPAY ==
--- OUTSIDE RECORDS SUMMARY | 2024-09-30 04:30 | XMS_ITS ---
Author Organization [facility] Address [address] [place] [address] Care Team Providers Care Bar Host Name Role Phone Jane URIBE, Carmen Mercer Primary Care Provider Un available Anay Pena Unavailable [phone] Social History Tobacco Use: Social History Observation [...] Negative Encounters Encounter Location Date Provider Diagnosis [address] [address] 09/30/2024 Anay Pena Plan Of Treatment Next Appt Details Provider Name:Anay dudley, 05/28/2025 12:00:00 PM, [address] [place] [address], [phone], Progress Notes * Kelli ADDISONDOB:1940 (84 yo F)Acc No.[id number]:09/30/2024 Progress Notes Patient: Kelli ERAZO Provider: Alfredo Pena DPM :1940 A ge:84 Y S ex:Female Date:09/30/2024 Address: [facility] [address] [id number] Pcp:Brooks Weathers Subjective: * Chief Complaints: * [...] Children: yes, 3. Marital status: . Occupation: [employer]. D rug/Alcohol: A JOSE-C (Standard) D id [...] 0 09/30/2024 Generated for Jessica aj/Robert/Ashley on: 1 11:22 AM EDT
--- NOTE | 2025-04-13 09:50 | MHC.OFFVIS ---
Vital Signs 04/13/25 10:03 Height 5 ft 5 in Weight 115 lb 4 oz BMI 19.2 BP 145/70 H Blood Pressure Location Lt brachial Position Sitting Pulse 65 Intake Visit Reasons: yearly breast exam Intake Note: Patient is seen in office for yearly breast exam. Pt c/o: denies any breast issues, admits to abdominal pain, unsure if its due to meals or lack of meals mm:05/29/24 (DUE/Not sched) Distance Learning Unit Leader Required: No Accompanied by: Self / Same As Patient Allergies amoxicillin (Amoxicillin) Allergy (Unknown, Verified 04/13/25 09:59) NAUSEA, vomiting, severe GI problems Medication List - Last Reconciled 04/13/25 by Geovany Garrett MD famotidine 20 mg PO BEDTIME metoprolol succinate ER 25 mg PO DAILY trametinib 2 mg PO Q24H HPI Comments Details: 84-year-old female patient, former patient of Dr. Benson returning for breast cancer follow-up. She was diagnosed with DCIS the left breast in 2011 and underwent lumpectomy on 03/27/2012. Pathology revealed DCIS intermediate to high nuclear grade, ER positive, NE positive with a small focus questionable for microinvasion. She completed radiation therapy and then was placed on tamoxifen for approximately 2 months. This was followed by raloxifene for another 6 months until stopped in December 2012. She feels well and denies any breast symptoms in either breast. She denies any family history of breast cancer. Last mammogram dated 05/29/2024 revealed no mammographic evidence of malignancy (BI-RADS 2). Patient was diagnosed with adenocarcinoma the pancreas and underwent a Whipple procedure (Dr. Coats). She has not been on chemo for several months in his due to see Dr. Sheets later on this week. She denies any new breast symptoms. She has not yet scheduled a follow-up here early mammogram. 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 Mother No problems noted. Sister H/O thyroid disease Cancer Social History Household Members: Significant Other Housing: House Are you a primary residential child care counselor to a significant other at home: No Do you presently have visiting nurse or other home services: No Alcohol intake: never Patient Tobacco Use Status: Never used Tobacco e-Cigarette/Vaping Use: Never Used Second Hand Smoke Exposure: No Advance Directives Date on File: 06/19/22 service: No Current occupational status: retired Cognitive needs: No Hearing needs: No Vision needs: No Review of Systems Const All systems reviewed & are unremarkable except as noted in HPI and below Denies anorexia, Denies chills, Denies headache(s), Denies night sweats, Reports weakness and Reports weight loss ENT Denies headache(s) Card Denies chest pain, Denies rapid heart rate, Denies irregular heart rhythm and Denies dyspnea on exertion Resp Denies cough, Denies hemoptysis and Denies dyspnea on exertion GI Denies abdominal pain, Denies constipation and Denies diarrhea Denies nipple discharge Skin/Breast Denies breast swelling, Denies breast skin changes, Denies breast pain, Denies breast mass and Denies nipple discharge Neuro Denies headache(s) and Reports weakness Mansoor/Lymph Denies lymphadenopathy Physical Exam Vital Signs: Last Vital Signs Pulse 65 04/13/25 10:03 BP 145/70 H 04/13/25 10:03 BMI result Body Mass Index 19.2 Const General: healthy appearing, well developed, alert and awake Nutritional Appearance: well nourished Orientation/consciousness: patient oriented x3 Limitations: no limitations Neck Neck: Yes no lymphadenopathy and Yes no JVD Chest Other: Left breast: No skin change, no nipple retraction, no nipple discharge, no palpable mass, no enlarged lymph nodes. Well-healed incision in the upper inner quadrant with slight volume loss but below the incision. No palpable mass is appreciated and no overlying skin changes are noted. Right breast: No skin change, no nipple retraction, no nipple discharge, no palpable mass, no enlarged lymph nodes Chest/axillae images:  1. Resp Effort & Inspection: normal respiratory effort Auscultation: clear to auscultation bilaterally Skin General skin exam: no rashes or lesions noted and dry skin Neuro General: patient oriented x3 Extrem General: Yes no clubbing, cyanosis or edema Assessment & Plan Assessment & Plan (1) DCIS (ductal carcinoma in situ): Code(s): D05.10 - Intraductal carcinoma in situ of unspecified breast Category: Medical Qualifiers: Laterality: left Qualified Code(s): D05.12 - Intraductal carcinoma in situ of left breast (2) Ductal carcinoma in situ of left breast: Code(s): D05.12 - Intraductal carcinoma in situ of left breast Category: Medical Plan 84-year-old female patient approximately 10 years following diagnosis of ductal carcinoma of the left breast status post lumpectomy followed by radiation therapy. She continues to saleem pancreatic cancer but denies any breast symptoms at this time. We will be due for her mammogram in May 2025. Examination today revealed no suspicious findings in either breast and no enlarged lymph nodes. She will return in 1 year for routine breast examination, But is welcome to call sooner for any new concerns. Orders: Orders MM screening mammo BI 05/31/25 D05.12 - Intraductal carcinoma in situ of left breast Coding Level of Care Code Est Pt Level 3 (61402) Complex EM visit Add On G2211 Diagnoses Ductal carcinoma in situ (DCIS) of left breast D05.12 Laterality: left Ductal carcinoma in situ of left breast D05.12
[2025-04-13 10:03] VITALS: BP 145/70; PULSE 65; BMI 19.2
--- OUTSIDE RECORDS SUMMARY | 2025-04-13 11:22 | XMS_ITS | Clinical Summary ---
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 Active metoprolol succinate (TOPROL-XL) 25 MG 24 hr tablet Take 25 mg by mouth daily. Active therapeutic multivitamin tablet Take 1 tablet by mouth daily. Active food supplemt, lactose-reduced (,ENSURE PLUS,) 0.05 gram- 1.5 kcal/mL Liqd Take 1 Can by mouth daily. Active trametinib (MEKINIST) 2 mg tabletIndication s:Malignant neoplasm of head of pancreas Take 1 tablet (2 mg total) by mouth daily. Take on an empty stomach. Follow instructions given by provider. 30 tablet 3 Active Active Problems Problem Noted Date Diagnosed Date HLD (hyperlipidemia) 12/14/2024 HTN (hypertension) 12/14/2024 Osteoarthritis of both hips 12/14/2024 Osteopenia 12/14/2024 Pancreatic cancer 12/14/2024 Vitamin D deficiency 12/14/2024 History of breast cancer 12/14/2024 Encounters Date Type Department Care Team Description 03/09/2025 Orders Only [facility], [facility] [address] [facility] [place] [address] Malena Marvin MD, PhD 02/26/2025 Documentation [facility] [place], [facility] [address] [facility] [place] [address] Brook Travis, RN Care Coordination 02/19/2025 Telephone [facility], [facility] [address] [facility] [facility] [place] [address] Kiki Ureña, DANNY Care Coordination 01/28/2025 10:44 AM EDT - 01/28/2025 11:59 PM EDT Hospital Encounter [facility], [address] [address] Discharge Disposition: Home or Self Care 01/20/2025 Telephone [facility], [facility] [address] [facility] [place] [address] Yolis Diego, DANNY Care Coordination 01/11/2025 Orders Only [facility], [facility] [address] [facility], [address]th [place] [address] Malena Marvin MD, PhD from Last 3 Months Family History Medical History Relation Comments Cancer Sister 1 Relation Status Comments Daughter Alive Father Maternal Aunt Maternal Grandfather Maternal Grandmother Maternal Uncle Mother Paternal Aunt 1 Paternal Aunt 2 Paternal Grandfather Paternal Grandmother Sister 1 Sister 2 Alive Sister 3 Alive Sister 4 Alive Son 1 Alive Son 2 Alive Social History Tobacco Use Types Packs/Day Years Used Date Smoking Tobacco: Never Passive Smoke Exposure: Never Smokeless Tobacco: Never Tobacco Cessation:Counseling Given: Not Answered Alcohol Use Standard Drinks/Week Comments Never 0 (1 standard drink = 0.6 oz pur e alcohol) No history of abuse Child or Family Care Answer Date Record ed Do you have problems with on e of the following making it difficult for you to work, study, or receive health care? No 12/14/2024 Education Answer Date Recorded Are you interested in more education? Not on josr e 11/25/2024 Are you concerned about learning? Not on file 11/25/2024 No 11/25/2024 No 11/25/2024 Food Answer Date Recorded Within the past 6 months we worried whether our food would run out before we got money to buy more. Never True 12/14/2024 Within the past 6 months the food we bought just didn't last and we didn't have enough money to get more. Never True Residential Stability Answer Date Recor ded What is your housing situation today? I have betty sing 12/14/2024 How many times have you move d in the past 12 months? Zero (I did not move) 12/14/2024 Paying for Meds Answer Date Recorded Do you have trouble paying for medicines? No 12/14/2024 Paying Utility Bills Answer Date Record ed Do you have trouble paying your heating or elect ricity bill? No 12/14/2024 Transportation Answer Date Recorded Has the lack of transportati on kept you from medical appointments or from getting medications? No 12/14/2024 Digital Access Answer Date Recorded No 11/25/2024 No 11/25/2024 Reliable internet access at home? Not on file 11/25/2024 Device with a working camera? Not on file Comments Unknown Sex and Gender Information Value Date Recorded Sex Assigned at Female 11/03/2024 12:10 PM EDT Legal Sex Female 12:08 PM EDT Gender Identity Female 11/03/2024 12:10 PM EDT Sexual Orientation Not on file Last Filed Vital Signs Vital Sign Reading Time Taken Comments Blood Pressure 164/75 12/14/2024 3:59 PM EDT Pulse 68 12/14/2024 3:59 PM EDT Temperature 36.3 C (97.4 F) 12/14/2024 3:59 PM EDT Respiratory Rate 16 12/14/2024 3:59 PM EDT Oxygen Saturation 99% 12/14/2024 3:59 PM EDT Inhaled Oxygen Concentration - - Weight 49.5 kg (109 lb 2 oz) 12/14/2024 3:59 PM EDT Height 160 cm (5' 2.99 ) 12/14/2024 3:59 PM EDT Body Mass Index 19.34 12/14/2024 3:59 PM EDT Plan of Treatment Health Maintenance Due Date Last Done Comments Adult Td,Tdap Booster 1940 DEPRESSION SCREENING 1954 PNEUMOCOCCAL VACCINES (50+ years) (1 of 2 - PCV) 1961 ZOSTER VACCINES (1 of 2) 1961 OSTEOPOROSIS SCREENING INITIAL (ONE-TIME) 09/11/2007 RSV VACCINE (1 - 1-dose 75+ series) 2017 INFLUENZA VACCINE (#1) 2025 , 04/19/2022, 04/04/2020, Additional history exists COVID-19 VACCINE ( season) 2025 04/19/2022, 06/26/2021, 09/07/2020, Additional history exists BLOOD PRESSURE 06/15/2025 12/14/2024 HEPATITIS A VACCINES Aged Out No long er eligible based on patient's age to complete this topic HIB VACCINES Aged Out No longer eligi ble based on patient's age to complete this topic MENINGOCOCCAL VACCINES (ACWY) Aged Out No longer eligible based on patient's age to complete this topic MENINGOCOCCAL VACCINES (B) Aged Out N o longer eligible based on patient's age to complete this topic Medical Devices Not on file Procedures Procedure Name Priority Date/Time Associated Diagnosis Comments PAIRED TUMOR/GERMLINE - TUMOR ORDER (REQUIRED) Routine 01/28/2025 10:45 AM EDT Malignant neoplasm of pancreas, unspecified location of malignancy RESEARCH PAIRED TUMOR/GERMLINE ONCOPANEL Routine 01/28/2025 12:00 AM EDT from Last 3 Months Results * Paired Tumor/Germline - Tumor Order (Required) (01/28/2025 10:45 AM EDT) Specimen Status Request received [facility] Report Status SEE PATHOLOGY REPORT [facility] Other 01/28/2025 10:4 5 AM EDT 01/28/2025 10:46 AM EDT us Malena Marvin MD, PhD NON SCHEDULABLE PATHO LOGY Final Result [facility] [address] [place], [place] [id number] * Research Paired Tumor/Germline OncoPanel (01/28/2025 12:00 AM EDT) 01/28/2025 02/08/2025 Narrative [facility] - 02/26/2025 11:07 AM EDT CASE: [id number] PATIENT: KELLI ADDISON Date: 1940 Sex: Female [facility] Department of Pathology [address] [place] [address] CLIA License No.: [id number] Glass Sander: Dr. 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 Mutational [place]: Tumor Mutational [place]ze/Megabase: 2.281 This is higher than 36% of all Cancer of Unknown Primary cases sequenced by Paired Tumor/Germline OncoPanel. This is higher than 46% of all Profile cases sequenced by Paired Tumor/Germline OncoPanel. ACTIONABLE FINDINGS Mismatch Repair Status: Proficient (MMR-P / BARB) Somatic Mutations: Tier 1 variants: None identified. Tier 2 variants: None identified. Germline Variants with Potential Therapeutic Implications: No single nucleotide variants or small insertions/deletions with potential therapeutic implications were detected in germline analysis. Please refer to the separate [facility] Germ[facility] report for full germline analysis. Structural Variants: Tier 1 variants: None identified. Tier 2 variants: Rearrangement_inversion - SND1 intron 14 ([id number]) :: BRAF intron 8 (chr7:[id number]) Copy Number Variants: None identified. ADDITIONAL FINDINGS: Investigational Mutational Signatures (see methods): Too few mutations detected to perform additional mutational signature analysis. Investigational Variants Mutations: Tier 3 variants: None identified. Tier 4 variants: ISABELLA c.8492T>A (p.B4750Q), exon 58 - in 91% of 380 reads### CDH4 c.1537C>A (p.L513M), exon 10 - in 13% of 271 reads### GNAS c.700C>A (p.P234T), exon 1 - in 49% of 212 reads### Structural Variants: Tier 3 variants: None identified. Tier 4 variants: None identified. Copy Number Variants: Cytoband/Size Type of Alteration Genes 1n71-m81.3 Loss FAM46C, NOTCH2, NRAS, JAK1 3d64-l88.2 Loss TAL1, MUTYH, UROD, MPL, MYCL 1p36.11-p36.33 Loss ARID1A, ID3, SDHB, KIF1B, MTOR, I7vfk10 1q21.3-q23.1 Gain MCL1, GBA, RIT1, NTRK1 1q23.3 Gain PVRL4 1q41 Gain PTPN14 2q14.2-q14.3 Gain GLI2, ERCC3 2q23.3-q37.1 Gain RIF1, ACVR1, ABCB11, NFE2L2, PMS1, CASP8, SF3B1, CTLA4, ERBB4, IDH1, BARD1, XRCC5, DIS3L2 3p Arm level Loss MITF, BAP1, PBRM1, COL7A1, RHOA, SETD2, CTNNB1, MLH1, MYD88, XPC, PPARG, RAF1, FANCD2, OGG1, VHL 5q35.2 Gain NSD1, UIMC1 6q21 Gain PRDM1 7q31.2 Gain MET 7q34 Gain PRSS1 8p21.2 Loss NKX3-1 8p23.1 Loss GATA4, NEIL2 9p13.2 Gain PAX5 9p21.3 Loss CDKN2A 9p21.3 Two copy deletion CDKN2B 9p21.3-p24.1 Loss MTAP, CD274, JAK2, ABSB3DJ8 9q21.33 Loss NTRK2 9q31.2 Loss TAL2 10p14 Loss GATA3 10q24.32-q26.13 Loss NT5C2, SUFU, SMC3, TCF7L2, HABP2, FGFR2 48l71-f38.5 Loss LMO2, WT1, FANCF, CDKN1C, LMO1, H19, HRAS, IGF2, KCNQ1 11q13.3 Gain CCND1 31i23-x81.2 Loss MRE11A, YAP1, ISABELLA, SDHD, USP28, VCYXXU15, CBL, HMBS, KMT2A, CHEK1 13q12.13-q14.2 Loss CDK8, FLT1, FLT3, BRCA2, RB1 14q13.2-q23.3 Loss NFKBIA, NKX2-1, FOXA1, FANCM, MAX 15q26.1 Gain IDH2 16p13.3 Gain CREBBP 16q12.1-q22.1 Loss CYLD, CBFB 16q22.1 Loss CTCF 17q12 Loss CDK12, ERBB2 17q21.2 Loss SUSAN, SMARCE1 17q21.31 Gain ETV4 18q11.2-q21.33 Loss SS18, SETBP1, SMAD2, SMAD4, BCL2 Xp22.33 Loss CRLF2 INTERPRETATION: Only variants of uncertain significance are identified. ### These variants may have a role in cancer biology, or may have shown potential future clinical application in in vitro studies, but as yet no clinical role for this mutation has been established as [id number] in the published medical literature. STRUCTURAL VARIANTS: Rearrangement_inversion - SND1 intron 14 :: BRAF intron 8 - Structural variant analysis detected an inversion rearrangement involving breakpoints within intron 14 of SND1 and intron 8 of BRAF. This rearrangement generates an in-frame event that is consistent with an oncogenic SND1-BRAF fusion. BRAF encodes a protein kinase involved in the AJ/MAPK signaling pathway and BRAF fusions have been identified in multiple tumor types, including pancreatic carcinomas, particularly those with acinar cell differentiation (PMID: [id number], [id number], 81000155, 54715844, [id number]). These breakpoints have been previously reported in oncogenic SND1-BRAF fusions (PMID: [id number]). BRAF fusions may be associated with response to targeted BRAF/MEK inhibition (PMID: 60763145). COPY NUMBER VARIANTS (CNV): Copy number analysis shows widespread low amplitude gains and losses across the targeted genome. Notably, deep deletion of CKDN2B is detected, and a potential one-exon deep deletion in MTAP is noted. There was a fluctuating baseline and wide dispersion of signal (noise) that precludes accurate interpretation of low level events. Results should be interpreted with caution. Two-copy deletion of CDKN2B at 9p21.3: CDKN2B is a tumor suppressor gene involved in cell cycle regulation. Two copy deletion of CDKN2B is expected to result in loss of CDKN2B function. Targeted treatment with CDK4/CDK6 inhibitors in CDKN2A/KUOI3R-pcxedtd tumors have shown promise in multiple solid tumor types (PMID: 96048419, 09132868, 04167799, 09206851). However, the focal deep loss of CDKN2B without concurrent deep loss of CDKN2A has less certain clinical significance. Potential deeper partial deletion of MTAP on 9p21.3: The MTAP gene encodes methylthioadenosine phosphorylase, a nesbitt enzyme in the adenine and methionine salvage pathway. The MTAP gene is frequently deleted in human cancers because of its chromosomal proximity to the tumor suppressor gene CDKN2A. Research suggests loss of MTAP confers a selective dependence on PRMT5, which can be pharmacologically exploited with PRMT5 inhibitors (PMID: 15860436; 21565070). This sample shows low-level deletion of MTAP and CDKN2A, however the data is suggestive of deeper deletion of exon1 and part of intron 1 of MTAP. This assay is not validated for such small partial gene deletions. Validation with an orthogonal testing method (i.e. FISH or IHC) may be helpful to determine the extent of the copy number event in this case if clinically warranted. TEST INFORMATION: This test has been validated and performed in a clinical laboratory that is certified by CLIA (CLIA certificate: [id number]), under CLIA guidelines for clinical testing. This test was developed, and its performance characteristics determined by the [facility], [facility]. It has not been cleared or approved by the U.S. Food and Drug Administration. The FDA has determined that such clearance or approval is not necessary. For detailed methodology and protocol, please contact the [facility] ([phone]). LABORATORY METHODS: OncoPanel is a cancer genomic assay designed to detect somatic mutations, copy number variations and structural variants in tumor DNA extracted from fresh, frozen or formalin-fixed paraffin-embedded samples. This assay surveys exonic DNA sequences of 447 cancer genes and 191 regions across 60 genes for rearrangement detection. DNA is isolated from tissue containing at least 20% tumor nuclei and analyzed by massively parallel sequencing using a solution-phase Agilent SureSeVidiblet hybrid capture kit and an Illumina [employer] sequencer. This assay may be performed with tumor only, in which setting likely somatic variants are prioritized for review and interpretation and most germline variants are removed bioinformatically, but a subset of germline variants occurring with the full panel of targeted genes may be included in the report. This assay may also be performed as a Paired Tumor: Germline test, in which case genomic DNA extracted from the patient's blood specimen is sequenced in parallel with the tumor specimen and germline variants detected in the blood specimen are generally excluded from the somatic report. However, germline variants with potential therapeutic importance are reported in the somatic report when they occur in the following genes: ALK, ISABELLA, BARD1, BRCA1, BRCA2, CHEK2, DICER1, EGFR, KIT, MET, MLH1, MSH2, MSH6, PALB2, PMS2, PTCH1, RB1, RET, TP53 The complete list of 447 genes is as follows: ABCB11,ABL1,ACVR1,AKT1,AKT2,AKT3,ALK,APC,AR,ARAF,LFCMUV34,BJFINT58,ARID1A,ARID1 B,ARID2,ASXL1,ISABELLA,ATR,ATRX,AURKA,AURKB,AXIN2,MARCELINA,B2M,BABAM1,BAP1,BARD1,BCL11B,B CL2,BCL2L1,VBA2B02,BCL6,BCOR,BCORL1,BLM,BMPR1A,BRAF,BRCA1,BRCA2,BRCC3,BRD3,BRD4 ,ODESSA,BRIP1,BUB1B,K19GPF13,N09OOG25,Q7MZT72,CALR,CARD11,CASP8,EKTC3H7,CBFB,CBL,C BLB,CCND1,CCND2,CCND3,CCNE1,CD274,CD79B,CDC73,CDH1,CDH4,CDK12,CDK4,CDK6,CDK8,CD KN1A,CDKN1B,CDKN1C,CDKN2A,CDKN2B,CDKN2C,CEBPA,CHEK1,CHEK2,CIC,CIITA,COL7A1,CREB BP,CRKL,CRLF2,CRTC1,CSF3R,CTCF,CTLA4,CTNNA1,CTNNB1,CUX1,CXCR4,CYLD,DAXX,KITRY8K ,DDB1,DDB2,DDR2,DICER1,DIS3,DIS3L2,DKC1,DMC1,DNMT3A,DOCK8,EGFR,EGLN1,ELANE,EME1 ,ENG,EP300,EPCAM,ERBB2,ERBB3,ERBB4,ERCC1,ERCC2,ERCC3,ERCC4,ERCC5,ERCC6,ERG,ESR1 ,ETV1,ETV4,ETV5,ETV6,EWSR1,EXO1,EXT1,EXT2,EZH2,FAH,IAG045S,FAM46C,FAN1,FANCA,FA NCB,FANCC,FANCD2,FANCE,FANCF,FANCG,FANCI,FANCL,FANCM,FAS,FAT1,FBXW7,FGFR1,FGFR2 ,FGFR3,FGFR4,FH,FLCN,FLT1,FLT3,FLT4,FOXA1,FOXL2,FUS,GALNT12,GATA2,GATA3,GATA4,G ATA6,GBA,GEN1,GLI1,GLI2,GNA11,GNAQ,GNAS,GPC3,GREM1,H19,H3F3A,H3F3B,HABP2,HELQ,H FE,LFZV3V7J,LEJY4B3H,HMBS,HNF1A,HOXB13,HRAS,ID3,ID4,IDH1,IDH2,IGF1R,IGF2,IKZF1, IL7R,ITK,JAK1,JAK2,JAK3,JAZF1,KAT6A,KAT6B,KCNQ1,KDM5A,KDM5C,KDM6A,KDR,KEAP1,KIF 1B,KIT,KLF2,KLF4,KLLN,KMT2A,KMT2D,KRAS,LIG4,LMO1,LMO2,MAF,MAFB,MAP2K1,MAP2K2,MA P2K4,MAP3K1,MAPK1,MAX,MBD4,MCL1,MCM8,MDM2,MDM4,MECOM,MED12,MEF2B,MEN1,MET,MGA,M ITF,MLH1,MLH3,MPL,MRE11A,MSH2,MSH6,MTA1,MTAP,MTOR,MUS81,MUTYH,MYB,MYBL1,MYC,MYC L1,MYCN,MYD88,NBN,NEIL1,NEIL2,NEIL3,NF1,NF2,NFE2L2,NFKBIA,NFKBIE,NFKBIZ,NKX2-1, NKX3-1,NOTCH1,NOTCH2,NOTCH3,NPM1,NR0B1,NRAS,NRG1,NSD1,NT5C2,NTHL1,NTRK1,NTRK2,N TRK3,OGG1,PALB2,PARK2,PAX5,PAXIP1,PBRM1,EFSO5WK0,PDGFRA,PDGFRB,PHF6,PHOX2B,PIK3 C2B,PIK3CA,PIK3R1,PIM1,PML,PMS1,PMS2,PNKP,POLB,POLD1,POLE,POLH,POLQ,POT1,PPARG, PPM1D,GEV5Z6Y,PRDM1,PRF1,SFOSF9Y,PRKCI,PRKDC,PRSS1,PTCH1,PTEN,PTK2B,PTPN11,PTPN 14,PVRL4,QKI,RAC1,RAD21,RAD50,RAD51,RAD51C,RAD51D,RAD52,RAD54B,RAF1,SUSAN,RASA1, RB1,RBBP8,RBM10,RECQL4,REL,RELA,RET,RHBDF2,RHEB,RHOA,RHOH,RHOT1,RICTOR,RIF1,RIN T1,RIT1,RMRP,RNF43,RNF8,ROS1,RPA1,RPTOR,RSPO2,RSPO3,RUNX1,OTSY3T7,SBDS,SDHA,SDH AF2,SDHB,SDHC,SDHD,SERPINA1,SETBP1,SETD2,SF3B1,SH2B3,SH2D1A,RHQ80D67,BDL17Z6,SL X1A,SLX1B,SLX4,SMAD2,SMAD4,SMARCA4,SMARCB1,SMARCE1,SMC3,SMO,SOCS1,SOS1,SOX2,SOX 9,SPOP,SRSF2,SRY,SS18,STAG2,STAT3,STAT6,STK11,SUFU,SUZ12,TAL1,TAL2,LETITIA,TCEB1,TC F3,TCF7L2,TDG,TERC,TERT,TET1,TET2,TFE3,TLX3,MKES520,TMPRSS2,TNFAIP3,TOPBP1,TP53 ,OU19OX2,TRAF3,TRAF7,TRIM37,TSC1,TSC2,TSHR,U2AF1,UBE2T,UIMC1,UROD,USP28,USP8,VE GFA,VHL,WAS,WHSC1,CPVJ8U8,WRN,WT1,XPA,XPC,XPO1,XRCC1,XRCC2,XRCC3,XRCC4,XRCC5,XR CC6,YAP1,LJF310,ZNRF3,ZRSR2 191 regions across the following 60 genes are targeted for rearrangement detection: ABL1,ALK,BCL6,BIRC3,BRAF,CBFB,CIC,CIITA,CRTC1,CRTC3,EGFR,ERG,ESR1,ETV4,ETV5,ETV 6,EWSR1,FGFR1,FGFR2,FGFR3,FIP1L1,FOXO1,FUS,JAK2,KMT2A,MET,MYB,MYBL1,NAB2,NCOA2, NPM1,NR4A3,NRG1,NTRK1,NTRK2,NTRK3,NUTM1,QSD881,PDGFB,PDGFRA,PDGFRB,PHF1,PML,PPA RG,RAF1,SUSAN,RELA,RET,ROS1,RSPO2,RSPO3,RUNX1,ZSY91S0,SS18,SUZ12,TMPRSS2,TP53,WW TR1,YAP1,YWHAE This test has been performed under an institutional research protocol (17-000/20-000) but has been validated and performed in a clinical laboratory that is certified by CLIA (CLIA certificate: [id number]), under CLIA guidelines for clinical testing. Accordingly, the [facility] Institutional Review Board has authorized the release of these test results, performed under this research protocol, into the patient's electronic medical record, so that they may be used for clinical management decisions, including determining eligibility for clinical trials. INTERPRETIVE METHODS: Somatic genetic alterations in oncogenes and tumor-suppressor genes contribute to the pathogenesis and evolution of human cancers. These alterations can provide diagnostic, prognostic and predictive information and stratify cancers for targeted therapeutic information. We classify these alterations into five tiers using the following guidelines: Tier 1: The alteration has well-established published evidence confirming clinical utility in this tumor type, in at least one of the following contexts: predicting response to treatment with an FDA-approved therapy; strongly supportive in establishing a definitive diagnosis; assessing prognosis; or conferring an inherited increased risk of cancer to this patient and family. Tier 2: The alteration may have clinical utility in at least one of the following contexts: selection of an investigational therapy in clinical trials for this cancer type; limited evidence of prognostic association; supportive of a specific diagnosis; proven association of response to treatment with an FDA-approved therapy in a different type of cancer; or similar to a different mutation with a proven association with response to treatment with an FDA-approved therapy in this type of cancer. Tier 3: The alteration is of uncertain clinical utility, but may have a role as suggested by at least one of the following: demonstration of association with response to treatment in this cancer type in preclinical studies (e.g., in vitro studies or animal models); alteration in a biochemical pathway that has other known, therapeutically-targetable alterations; alteration in a highly conserved region of the protein predicted, in silico, to alter protein function; or selection of an investigational therapy for a different cancer type. Tier 4: The alteration is novel or its significance has not been studied in cancer. For tumor-only analysis, a subset of these alterations likely represent normal germline variants as the assay is not analyzed in conjunction with a matched normal from the same patient. Tier 5: The alteration has been determined to have no clinical utility, either for selecting therapy, assessing prognosis, establishing a diagnosis, or determining hereditary disease risk. These variants are not included in the report. Insufficient Coverage: If specified exon(s) have <50X coverage, that gene for that specific exon is considered to have insufficient coverage. Pertinent Negative: Specified exon(s) or codon(s) of interest for the given panel having sufficient coverage and no variants found. Copy Count Estimation: When the estimated number of copies for a CNV call is calculated as >= 6 copies, the report will include the number of copies instead of reporting high or low amplification. The copy estimate is the average number of copies in the sample, rounded to the nearest whole number, and is not adjusted for subclonal events. Importantly, the estimated copy number is a function of the subjective visual assessment of tumor purity(heterogeneity) made by a pathologist. As such, this copy number is an estimate, with an element of error. Copy number variants are called at the gene level; genes that are not on our assay but are present in the cytoband should not have the same copy alteration inferred. The following formula is used for the calculation, where Noc = Number of Copies, AGCR = Average Gene CopyRatio, and P = Tumor Purity:NoC = (2 * (AGCR -1)/P ) + 2) Tumor mutational burden (TMB): TMB is calculated by determining the number of non-synonymous somatic mutations that occur per megabase of exonic sequence data across all genes on the panel. Measurement of TMB may be less precise in tumors with a very low tumor content and can potentially be affected by the presence of rare germline variants that are not removed by population allele frequency-based filtering. The TMB for a case is reported as a percentile in relation to all prior Profile clinical and research cohort samples sequenced on the current version of Tutum, as well as a percentile in relation to all tumors of that specific type. A tumor type-specific percentile is not provided for tumor types that have cumulatively been sequenced less than 10 times due to insufficient data for meaningful comparison. Structural Rearrangements: Svaba and Manta tools were used for detection of structural rearrangements/variations (SVs). Potential rearrangements and insertions/deletions identified by one or both algorithms in 191 DNA gene regions (across 60 genes) were manually reviewed for inclusion in the report. Detection of SVs in DNA is limited and the absence of a rearrangement should not be taken as absolute. Confirmation of the biological activation of a rearrangement using RNA or protein-based testing can be considered. For indel detection, Svaba/Manta thresholds were set to = 15 nucleotides for somatic samples and = 5 nucleotides for germline samples. Mismatch repair (MMR): MMR pathway status is evaluated by determining the number of small insertion/deletion events that occur in homopolymer regions within exonic sequence data across all genes on the panel, using an extension of a method previously developed in our laboratory (J Mol Diagn. 2017;19(1):84-91). Tumors with an elevated number of such events are classified as mismatch repair deficient (MMR-D) or microsatellite instability - high (MSI-H), while tumors with a low burden of such events are classified as mismatch repair proficient (MMR-P) or microsatellite stable (BARB). In some cases, it may not be possible to make a definitive determination about MMR pathway status. This may be due multiple factors, including low tumor content, suboptimal sequence quality, and the presence of another mutational signature. For these indeterminate cases, orthogonal testing via immunohistochemistry for mismatch repair protein expression or microsatellite instability testing by PCR should be considered. In tumor-only testing, for tumors with 16 or more mutations (9 or more in Tumor-Germline Testing), additional mutational signature analysis is performed based upon the pattern of nucleotide substitutions. Mutational signatures that can be detected using this approach include those associated with DNA damage due to ultraviolet light (UVA) exposure, tobacco smoke exposure, prior treatment with alkylating agents (including temozolomide), impaired POLE DNA polymerase function, and APOBEC enzyme dysregulation. The OncoPanel mutational signature detection tool is based upon previously published signatures derived from whole exome sequencing data (Mariangel et al. Nature 500:415-21 (2013)) and was refined by training on targeted exome sequencing data (Evelyn solomon al. Nature Medicine 23, 703-713 (2017)). The reported mutational patterns reflect those observed in vitro following exposure to relevant mutagens. The presence of these signatures, as detected by the OncoPanel mutational signature tool, was further validated against clinicopathologic features in [facility] samples including (1) origin at a sun-exposed site, (2) smoking history, (3) prior treatment with temozolomide, (4) concurrent POLE hotspot mutation, or (5) MMR deficiency as detected by OncoPanel. Mutational signature sensitivity ranges from 42 to 82% and specificity from 80 to > 99% relative to matched clinical features. However, extensive functional analysis has not been performed for validation and, therefore, these signatures should be interpreted as observed patterns consistent with the appropriate pathologic mechanism, but not definitive assertions. Failure to detect a mutational signature despite a relevant clinical context may result from low numbers of mutations identified by this targeted assay, low tumor content, and/or alternative mechanisms of tumorigenesis. If the reported mechanism is unexpected (i.e., a UV-signature in tumor arising at a visceral site), an appropriate clinical correlate should be identified before initiating a change in management. REFERENCES: Glenda et al. 2012. High-throughput detection of actionable genomic alterations in clinical tumor samples by targeted, massively parallel sequencing. Cancer Discov. 2(1):82-93. PMID: 28269413 Beth RAMOS et al., 2016. Institutional implementation of clinical tumor profiling on an unselected cancer population. JCI Insight 2016; 1:u31677. PMID: 40764596 Amada Licea et al., 2016. Manta: rapid detection of structural variants and indels for germline and cancer sequencing applications. Bioinformatics. 32(8):3387-2623. PMID: 01143149 Long KUHN et al., 2017. Validation of OncoPanel: A Targeted Next-Generation Sequencing Assay for the Detection of Somatic Variants in Cancer. Arch Pathol Lab Med. 141(6):751-758. PMID: 91674696 Fran CAMARA et al., 2017. Detection of mismatch repair deficiency and microsatellite instability in colorectal adenocarcinoma by targeted next-generation sequencing. J Mol Diag.19:84-91. PMID: 00873814 Sulma CAMARA et al., 2018. SvABA: genome-wide detection of structural variants and indels by local assembly. Genome Res. 28(4):581-591. PMID: 25891206 By his/her signature below, the senior physician certifies that he/she personally reviewed all the laboratory data of the described specimen(s) and rendered or confirmed the diagnosis(es) related thereto. Final Diagnosis by Chapis Taylor, Electronically signed on Wednesday February 26, 2025 at 11:06:25AM Malena Marvin MD, PhD NON SCHEDULABLE PATHO LOGY Final Result [facility] [address] [place] [id number] from Last 3 Months Insurance [employer] RE[employer] Care Teams Outside Barrel Lathe Operator Relationship Specialty Start Date End Date Carmen Lara MD [facility] [place] [address] PCP - General Internal Medicine 11/03/24 Wilman Sheets MD [address] [place] [phone] 11/25/24 Malena Marvin MD, PhD [address] [place] [id number] [email or web address] Medical Oncology 11/25/24 Additional Source Comments The information contained in this document represents components of the legal health record. It is not the complete legal health record.[facility]
--- OUTSIDE RECORDS SUMMARY | 2025-04-13 11:22 | XMS_ITS | Patient Health Record ---
Author Organization [facility] Address [address] [place] [address] Care Team Providers Care Champion Of Sustainable Design Name Role Phone Jane URIBE, Carmen Primary Care Provider Francis Huntley [phone] Allergies Allergen (clinical drug ingredient) Drug/Non Drug [...] Problem Status W/U Status Risk Notes Problem [id number] Encounter for screening for malignant neoplasm of colon (Z12.11) Active confirmed Problem [id number] Preprocedural examination (Z01.818) Active confirmed Plan Of Treatment Future Test Test Name Order Date COLONOSCOPY 12/07/2016 Insurance Providers Payer Name Payer Address Payer Phone Subscriber Number Group Number Insured Name Patient Relationship to Insured Coverage Start Date Coverage End Date [facility] [address] [place] [phone] [id number] JANUSZ ADDISON Self - patient is the insured Medical (General) History Medical History History ICD Code Negative colonoscopies in and in 2004, except for diverticulosis and internal hemorrhoids HTN Denies NC,DM,CVA,Lung disease,renal dise ase Hyperlipidemia Left-sided breast cancer as below--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
--- OUTSIDE RECORDS SUMMARY | 2025-04-13 11:22 | XMS_ITS | Patient Health Record ---
Author Organization [facility] [place] Address [address] [facility] [place] [address] Care Team Providers Care Lan/Wan Engineer Name Role Phone Jane URIBE, Carmen Mercer Primary Care Provider Un available Anay Pena Unavailable [phone] Allergies No Known Allergies Reason For Referral No Information Medications Medication SIG (Take, Route, Frequency, Duration) Notes Start Date End Date Status GaviLyte-G 236 GM DIRECTED, TAKE 1 GLASS EVERY 15 MINUTES UNTIL CLEAR Oral; Duration: 1 Days Active Ketoconazole 2 % 1 application Apply a thin layer to externally to feet, even between toes Twice a day; Duration: 30 days Active dexAMETHasone 4 MG TAKE 1 TABLET BY TOBI TH TWICE A DAY ON DAYS 2 AND 3 OF CHEMOTHERAPY EVERY 2 WEEKS. Oral; Duration: 30 Days Active Metoprolol Succinate ER 25 MG TAKE 1 TABLET BY MOUTH DAILY Oral; Duration: 90 Days Active Famotidine 20 MG TAKE 1 TABLET BY TOBI TH EVERYDAY AT BEDTIME Oral; Duration: 90 Days Active Social History Tobacco Use: Social History Observation [...] ast year? No Points 0 Interpretation Negative Vital Signs Blood pressure diastolic 70 mm Hg 03/10/2025 Height 5ft 4 in in 03/10/2025 Blood pressure systolic 143 mm Hg 03/10/2025 Weight 117 lbs 03/10/2025 BMI 20.08 kg/m2 03/10/2025 Encounters Encounter Location Date Provider Diagnosis [facility] [address] 12/09/2024 Anay Pena Onychomycosis B35.1 ; Tinea pedis of both feet B35.3 ; Pain in right toe(s) M79.674 and Pain in left toe(s) M79.[address] [address] 03/10/2025 Anay Pena Onychomycosis B35.1 ; Tinea pedis of both feet B35.3 ; Pain in right toe(s) M79.674 and Pain in left toe(s) M79.675 [facility] [address] 09/30/2024 Anay Pena Assessments Encounter Date Diagnosis (ICD Code) Assessment Notes Treatment Notes Treatment Clinical Notes Section Notes 12/09/2024 Onychomycosis (ICD-10 - B35.1) 12/09/2024 Tinea pedis of both feet (ICD-10 - B35.3) 03/10/2025 Onychomycosis (ICD-10 - B35.1) 03/10/2025 Tinea pedis of both feet (ICD-10 - B35.3) 12/09/2024 Pain in right toe(s) (ICD-10 - M79.674) 12/09/2024 Pain in left toe(s) (ICD-10 - M79.675) 03/10/2025 Pain in right toe(s) (ICD-10 - M79.674) 03/10/2025 Pain in left toe(s) (ICD-10 - M79.675) Plan Of Treatment Next Appt Details Provider Name:Anay Eisenberg Roger octavia, 05/28/2025 12:00:00 PM, [address] [place] [address], [phone], Insurance Providers Payer Name Payer Address Payer Phone Subscriber Number Group Number Insured Name Patient Relationship to Insured Coverage Start Date Coverage End Date [employer] [address] [place] [address] [id number] Kelli Lopez Self - patient is the insured 4 Medical (General) History Medical History History ICD Code Cancer High Blood Pressure Surgical History Surgery Date(Month/Year) pancreas surgery, cancer 2022
--- OUTSIDE RECORDS SUMMARY | 2025-04-13 11:22 | XMS_ITS ---
Author Organization [facility] Address [address] [facility] [facility] [address] [place] [phone] Phone Care Team Providers Care Hide Curer Name Role Phone Carmen Lara MD Primary Care Provider Wilman Sheets MD Unavailable Tony Marvin MD, PhD Unavailable Active Problems Problem Noted Date Diagnosed Date HLD (hyperlipidemia) 12/14/2024 HTN (hypertension) 12/14/2024 Osteoarthritis of both hips 12/14/2024 Osteopenia 12/14/2024 Pancreatic cancer 12/14/2024 Vitamin D deficiency 12/14/2024 History of breast cancer 12/14/2024 Current Treatment and Therapy Plans TRAMETINIB* Plan Start Date:01/11/2025 Plan Provider:Tony Marvin MD, PhD Linked Problems Malignant neoplasm of head o f pancreas Treatment Medications Current Day (Day 1 , Cycle 2 - Planned for 02/08/2025) Next Day (Day 1, Cycle 3 - Planned for 03/08/2025) trametinib (MEKINIST) trametinib (MEKINI ST) 2 mg tablet trametinib (MEKINIST) 2 mg tablet Past Treatment and Therapy Plans No past plan information found.
== END 2025-04-13 10:12 | disposition home or self-care (01) ==
LOC: HO.HGS 09:51
PROVIDERS: PCP Internal Medicine; Visit Provider Surgery
DX: D05.12 Intraductal carcinoma in situ of left breast (principal)
CPT/HCPCS: 99213; G2211

== ENCOUNTER → 2025-04-13 09:51 | Outpatient (BNVA) | payer MEDICARE, SELFPAY | PROVIDERS: PCP Internal Medicine; Visit Provider Surgery | DX: D05.12 Intraductal carcinoma in situ of left breast (principal); R10.9 Unspecified abdominal pain; Z85.07 Personal history of malignant neoplasm of pancreas | CPT/HCPCS: 99212 ==

== ENCOUNTER 2025-05-11 09:31 | Outpatient (AMB) | payer MEDICARE, SELFPAY ==
--- OUTSIDE RECORDS SUMMARY | 2024-09-30 03:30 | XMS_ITS ---
Author Organization [facility] Address [address] [place] [phone] Care Team Providers Care Program Instructor Name Role Phone Jane URIBE, Carmen Mercer Primary Care Provider Un available Anay Pena Unavailable [phone] Social History Tobacco Use: Social History Observation Description Date Details (start date - stop date) Never Smoker NA - NA Tobacco use other than smoking: Question Answer Notes Are you an other tobacco user? No Tobacco Control (Standard) Question Answer Notes Tobacco use: Nonsmoker Additional Findings: Tobacco non-user Current no nsmoker AUDIT-C (Standard) Question Answer Notes Did you have a drink containing alcohol in the p ast year? No Points 0 Interpretation Negative Encounters Encounter Location Date Provider Diagnosis [address] [address] 09/30/2024 Anay Pena Plan Of Treatment Next Appt Details Provider Name:Anay dudley, 05/28/2025 12:00:00 PM, [address] [place] [address], [phone], Progress Notes * Kelli ADDISONDOB:1940 (84 yo F)Acc No.[id number]:09/30/2024 Progress Notes Patient: Kelli ERAZO Provider: Alfredo Pena DPM :1940 A ge:84 Y S ex:Female Date:09/30/2024 [facility] [address] [id number] Pcp:Brooks Weathers Subjective: * Chief Complaints: * * Medical History: C ancer, High Blood Pressure. * Family History: M other: . F ather: . * Social History: T obacco Use: T obacco use other than smoking A re you an other tobacco user? N o Tobacco Control (Standard) T obacco use: N onsmoker A dditional Findings: Tobacco non-user C urrent nonsmoker D rugs/Alcohol: D rugs H ave you used drugs other than those for medical reasons in the past 12 months? N o M iscellaneous: C affeine: no. Children: yes, 3. Marital status: . Occupation: [employer] D rug/Alcohol: A JOSE-C (Standard) D id you have a drink containing alcohol in the past year? N o P oints 0 I nterpretation N egative Objective: * Vitals: Assessment: Plan: * Treatment: * Images: * The named appointment provid er may or may not be the originator of this progress note, and it is not deemed complete until electronically signed by the appointment provider. Sign off status: Pending * Provider: Alfredo Pena DPM Date: 0 09/30/2024 Generated for Jessica aj/Robert/Ashley on: 07/11/2024 10:42 AM EST
--- NOTE | 2025-05-11 09:45 | AM.OFFVISMDC ---
Intake Vital Signs 05/11/25 09:48 Height 5 ft 5 in Weight 115 lb BMI 19.1 BP 124/70 Blood Pressure Location Lt brachial Position Sitting Respiration 16 Pulse 63 Pulse Source Pulse Oximeter Temp 98.2 F Temp Source Oral Pulse Oximetry (%) 99 Oxygen Delivery Method Room Air Intake Visit Reasons: AWV G0439 - see comments Intake Note: Pt is here today for her AWV Allergies amoxicillin (Amoxicillin) Allergy (Unknown, Verified 05/11/25 10:12) NAUSEA, vomiting, severe GI problems Medication List - Last Reconciled 05/11/25 by Carmen Lara MD famotidine 20 mg PO BEDTIME fluoride (sodium) 1.1% (DentaGel) dental BEDTIME ketoconazole 2% appl topical BID metoprolol succinate ER 25 mg PO DAILY saliva stimulant comb. no.2 ea mucous membrane HPI AWV G0439 - see comments HPI Details AWV ? 83 year old lady with past medical history of ductal carcinoma in Situ of left breast, hypertension, hyperlipidemia, and currently being treated for adenocarcinoma of pancreas, presents for her ? Annual Wellness Visit, initial visit.? She has been feeling well currently receiving chemotherapy, being followed by Dr. Sheets,She has a history of pancreatic cancer diagnosed about three years ago, for which she underwent a nine-hour surgery after being told she may only have five months to live without it. She received chemotherapy for over two years but has since stopped, and reports she feels well. She has residual permanent numbness in her feet from the chemotherapy, which she describes as feeling like walking on a pillow. Last mammogram was done 04/19/2023, is scheduled for a mammogram in late May. Her last bone density scan in 2020 revealed bone thinning in her lower back, hip, and thigh. She no longer gets cervical cancer screenings or colonoscopies ,with last 1 done 03/21/[address] Nunez showing only presence of diverticulosis and internal hemorrhoids. Her last fasting lipid panel and fasting blood sugar were checked 11/02/2022 with normal findings. She is up-to-date with her pneumococcal vaccination, does not want to get shingles vaccine or the COVID booster or flu vaccine. ? Medical / Social History Reviewed? Past Medical History ?Yes . ? [place] of Care / Care Team list updated ?Yes . ? Surgical/Hospitalization History ?Yes . ? Current Medications (including OTC and supplements) ?Yes . ? Family History ?Yes . ? Tobacco Control form ?Yes . ? AUDIT-C (Alcohol use) form ?Yes . ? Illicit drug use in Social History ?Yes . ? Current diagnosis of depression? ?No ? Appropriate PHQ2/PHQ9 completed ?Yes . ? Data entered by ?[facility] Physiotherapist and reviewed by provider ? Fall Risk ? Fall History? Have you had any falls with injury in the past year? ?No . ? Have you had two or more falls in the past year? ?No . ? Fall Risk Assessment: ?No falls in the past year . ? HRA filled out by the patient, reviewed by Provider and scanned. ?? AWV ? Balance? Romberg ?negative. ? Tandem walk ?Yes . ? Walk and Turn ?Yes . ? Rise from sit to stand ?Yes . ?Vision? Corrective lens ?no ? Vision screen ? Up-to-date, goes to [facility] ?Hearing? Whisper test ?pass . ?Written Plan?Completed. See Patient Documents.? 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 Mother No problems noted. Sister H/O thyroid disease Cancer Social History Household Members: Significant Other Housing: House Are you a primary wild animal caretaker to a significant other at home: No Do you presently have visiting nurse or other home services: No Alcohol intake: never Patient Tobacco Use Status: Never used Tobacco e-Cigarette/Vaping Use: Never Used Second Hand Smoke Exposure: No Advance Directives Date on File: 06/19/22 service: No Current occupational status: retired Cognitive needs: No Hearing needs: No Vision needs: No Questionnaire Medicare Wellness Checkup What is your age?: 82 or older What gender do you identify with?: female During the past 4 weeks, how much have you been bothered by emotional problems such as feeling anxious, depressed, irritable, sad or downhearted, and blue?: slightly During the past 4 weeks, has your physical & emotional health limited your social activities with family, friends, neighbors, or groups?: slightly During the past 4 weeks, how much bodily pain have you generally had?: mild pain During the past 4 weeks, was someone available to help you if you needed & wanted help?: yes, as much as I wanted During the past 4 weeks, what was the hardest physical activity you could do for at least 2 minutes?: moderate Can you get to places out of walking distance without help? (For eg., can you travel alone on buses, taxis or drive your car?): Yes Can you go shopping for groceries or clothes without someone's help?: Yes Can you prepare your own meals?: No Can you do your housework without help?: No Because of any health problems, do you need the help of another person with your personal care needs such as eating, bathing, dressing or getting around the house?: No Can you handle your own money without help?: Yes During the past 4 weeks, how would you rate your health in general?: good During the past 4 weeks how have things been going for you?: good & bad parts about equal Are you having difficulties driving your car?: no Do you always fasten your seat belt when you are in a car?: yes, usually During past 4 weeks, have you been bothered by the following: never: Falling or dizzy when standing up, Sexual problems?, Trouble eating well? and Problems using the telephone?, seldom: Tiredness or fatigue? and often: Teeth or denture problems? Have you fallen 2 or more times in the past year?: No Are you afraid of falling?: No Are you a smoker?: no During the past 4 weeks, how many drinks of wine, beer, or other alcoholic beverages did you have?: no alcohol at all Do you exercise for about 20 minutes 3 or more times a week?: no, I usually do not exercise this much Have you been given information to help with the following?: no: Hazards in your house that might hurt you? and no: Keeping track of your medications? How often do you have trouble taking medicines the way you have been told to take them?: I always take medicine as prescribed How confident are you that you can control & manage most of your health problems?: somewhat confident What is your race?: White Mini Mental State Exam (MMSE) Orientation What is the (year) (season) (date) (day) (month)?: year (2024), season (Fall ), date (05/11/25), day (Saturday ) and month (Nov) Where are we (state) (county) (town or city) (hospital) (floor)?: state ([facility]), county ([place]), town or city ([place]) and hospital/clinic ([facility]) Score Score: 9 Activity of Daily Living Bathing - sponge bath, tub bath or shower: receives no assistance (gets in/out by self, if usual bathing means Dressing - getting clothes from closets & drawers, including inner/outer garments & fasteners.: gets clothes & gets completely dressed without help Toileting - going to the 'toilet room' for urine/bowel elimination & cleaning self/arranging clothes: goes to toilet room, cleans self, arranges clothes without help Transfer: moves in & out of bed and chair without help (may use support object) Continence: controls urination/bowel movements completely by self Feeding: feeds self without help Total Score: 0 Information obtained from: patient Using telephone: independent Traveling: independent Shopping: needs assistance Preparing meals: needs assistance Housework: needs assistance Taking medicine: independent Managing money: independent PHQ-9 Over the last 2 weeks, how often have you been bothered by any of the following problems? 1. Little interest or pleasure in doing things: not at all 2. Feeling down, depressed, or hopeless: not at all 3. Trouble falling or staying asleep, or sleeping too much: several days 4. Feeling tired or having little energy: not at all 5. Poor appetite or overeating: not at all 6. Feeling bad about yourself - or that you are a failure or have let yourself or your family down: not at all 7. Trouble concentrating on things, such as reading the newspaper or watching television: not at all 8. Moving or speaking so slowly that other people could have noticed. Or the opposite - being so fidgety or restless that you have been moving around a lot more than usual: not at all 9. Thoughts that you would be better off or of hurting yourself in some way: not at all Total score: 1 Depression Screening Interpretation: Negative Depression Screening Done: Yes 16577 - PHQ-9 Billing: Yes Source: Developed by Drs. Francis Ovalle, Anne Castillo, Humble Luz and colleagues, with an educational rachel from [employer]. Physical Exam Vital Signs: Last Vital Signs Temp 98.2 F 05/11/25 09:48 Pulse 63 05/11/25 09:48 Resp 16 05/11/25 09:48 BP 124/70 05/11/25 09:48 Pulse Ox 99 05/11/25 09:48 Oxygen Delivery Method Room Air 05/11/25 09:48 BMI result Body Mass Index 19.1 Results Reviewed Results Reviewed: Name: Kelli Lopez Age/Sex: 84/F : 1940 Unit#: [id number] Attend Dr: Wilman Sheets MD Re04/26/25 Status: REG RCR Location: .ONC Disch: SPEC : [id number] FITO: 02/23/25 STATUS: COMP REQ : [id number] RECD: 02/23/[address]: Wilman Sheets MD COMP: 02/23/25 ENTERED: 02/23/[address]: Carmen Lara MD ORDERED: CBC Auto Diff Test Result Flag Reference WBC 5.5 4.8-10.8 X10*3/uL RBC 4.12 L 4.20-5.50 X10*6/uL HGB 12.3 12.0-16.0 g/dl HCT 37.8 37.0-47.0 % MCV 91.7 80.0-98.0 fL MCH 29.9 27.0-33.0 pg MCHC 32.5 31.0-35.0 g/dl RDW 14.1 11.0-16.0 % PLT 205 160-400 X10*3/uL MPV 9.1 L 9.4-12.3 fL Neut Pct Auto 56.5 45-73 % ImGran Pct Auto 0.2 0.0-0.4 % Lymp Pct Auto 29.9 20-40 % Prairie Pct Auto 11.4 H 2-11 % Eos Pct Auto 1.5 0-4 % Baso Pct Auto 0.5 0-2 % NRBC Pct Auto 0.0 0.0-0.2 /100WBC ANC Neut Abs # 3.1 2.0-8.3 x10*3/uL ImGran Abs Auto 0.01 0.00-0.03 X10*3/uL Lymph Abs Auto 1.6 1.2-4.9 X10*3/uL Prairie Abs Auto 0.6 0.1-1.2 X10*3/uL Eos Abs Auto 0.1 0.0-0.4 X10*3/uL Baso Abs Auto 0.0 0.0-0.2 X10*3/uL NRBC Abs Auto 0.000 0.0-0.012 X10*3/uL Assessment & Plan Assessment & Plan (1) Encounter for subsequent annual wellness visit (AWV) in Medicare patient: Code(s): Z00.00 - Encounter for general adult medical examination without abnormal findings Plan: Medical wellness checklist reviewed, discussed with patient and updated. She has received pneumonia vaccination but does not want to get flu vaccine, COVID booster or shingles vaccine (2) Adenocarcinoma of pancreas: Code(s): C25.9 - Malignant neoplasm of pancreas, unspecified Plan: he patient is a 3-year survivor of pancreatic cancer and is doing remarkably well. She has completed chemotherapy and is no longer being treated, primarily due to development of peripheral neuropathy. Will continue follow-up with her oncologist, Dr. Sheets. (3) Osteopenia of multiple sites: Code(s): M85.89 - Other specified disorders of bone density and structure, multiple sites Plan: History of fractures. Advised to start taking iewl-lvz-ghngcya vitamin D3 at 2000 units daily and take adequate calcium from dietary sources. Up-to-date with her screening mammogram and colon cancer screening I explained the potential treatments if osteoporosis were diagnosed, but she expressed a strong preference to avoid new medications due to concerns about side effects and interactions with her other conditions. We mutually agreed to defer the scan and focus on fall prevention, (4) Osteoarthritis of hips, bilateral: Code(s): M16.0 - Bilateral primary osteoarthritis of hip Plan: Patient takes Tylenol as needed (5) Essential hypertension: Code(s): I10 - Essential (primary) hypertension Plan: Continued on metoprolol succinate ER 25 mg once a day (6) Dyslipidemia: Code(s): E78.5 - Hyperlipidemia, unspecified Plan: Reinforced importance of adhering to healthy eating habits. Quality Reporting (2019) Depression/Bipolar (159/160/161/177) PHQ-9: Total score: 1 Coding Level of Care Code Medicare Subsequent (G0439) Diagnoses Encounter for subsequent annual wellness visit (AWV) in Medicare patient Z00.00 Adenocarcinoma of pancreas C25.9 Osteopenia of multiple sites M85.89 Osteoarthritis of hips, bilateral M16.0 Essential hypertension I10 Dyslipidemia E78.5 Additional Codes PHQ-9 - 39699 - PHQ-9 Billing: Yes ([id number])
[2025-05-11 09:48] VITALS: BP 124/70; PULSE 63; RESP 16; TEMP 36.8; O2SAT 99; BMI 19.1
--- OUTSIDE RECORDS SUMMARY | 2025-05-11 10:43 | XMS_ITS ---
Author Organization [facility] Address [address] [place] [address] Phone Care Team Providers Care Baker Operator Automatic Name Role Phone Carmen Lara MD Primary [...]
--- OUTSIDE RECORDS SUMMARY | 2025-05-11 10:43 | XMS_ITS | Patient Health Record ---
Author Organization [facility] Address [address] [place] [address] Care Team Providers Care Energy Sales Consultant Name Role Phone Carmen Lara MD Primary Care Provider Francis Huntley [phone] Allergies Allergen (clinical drug ingredient) Drug/Non Drug [...] Problem Status W/U Status Risk Notes Problem Screening for malignant neoplasm of colon (213842507) Encounter for screening for malignant neoplasm of colon (Z12.11) Active confirmed Problem Preprocedural examination ([id number]) Preprocedural examination (Z01.818) Active confirmed Plan Of Treatment Future Test Test Name Order Date COLONOSCOPY 12/07/2016 Insurance Providers Payer Name Payer Address Payer Phone Subscriber Number Group Number Insured Name Patient Relationship to Insured Coverage Start Date Coverage End Date [facility] [address] [place] [phone] [id number] JANUSZ ADDISON Self - patient is the insured Medical (General) History Medical History History ICD Code Negative colonoscopies in and in 2004, except for diverticulosis and internal hemorrhoids HTN Denies CA,DM,CVA,Lung disease,renal dise ase Hyperlipidemia Left-sided breast cancer as below--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
--- OUTSIDE RECORDS SUMMARY | 2025-05-11 10:43 | XMS_ITS | Patient Health Record ---
Author Organization [facility] Address [address] [facility] [place] [address] Care Team Providers Care Reed Press Feeder Name Role Phone Jane URIBE, Carmen Mercer Primary Care Provider Un available Anay Pena Unavailable [phone] Allergies No Known Allergies Reason For Referral [...] Encounters Encounter Location Date Provider Diagnosis [facility] [address] 12/09/2024 Anay Pena Onychomycosis B35.1 ; Tinea pedis of both feet B35.3 ; Pain in right toe(s) M79.674 and Pain in left toe(s) M79.[address] [address] 03/10/2025 Anay Pena Onychomycosis B35.1 ; Tinea pedis of both feet B35.3 ; Pain in right toe(s) M79.674 and Pain in left toe(s) M79.[address] [facility] [address] [address] 09/30/2024 Anay Pena Assessments Encounter Date Diagnosis [...] Name:Anay Eisenberg Roger octavia, 05/28/2025 12:00:00 PM, [address] [place] [address], [id number], Insurance Providers Payer Name Payer Address Payer Phone Subscriber Number Group Number Insured Name Patient Relationship to Insured Coverage Start Date Coverage End Date [employer] [place] Medicare Advantage [address] [place] [address] [id number] Kelli Lopez Self - patient is the insured 4 Medical (General) History Medical History History ICD Code Cancer High Blood Pressure Surgical History Surgery Date(Month/Year) pancreas surgery, cancer 2022
--- OUTSIDE RECORDS SUMMARY | 2025-05-11 10:43 | XMS_ITS | Clinical Summary ---
Author Organization [facility] Address [address] [place] [phone] Phone Care Team Providers Care Management Accountant Name Role Phone Carmen Lara MD Primary Care Provider Wilman Sheets MD Unavailable Tony Marvin MD, PhD Unavailable Allergies Active Allergy [...] 03/09/2025 Orders Only [facility], [facility] [address] [facility] [facility] [place] [address] Tony Marvin MD, PhD 02/26/2025 Documentation [facility] [place], [facility] [address] [facility] [place] [address] Brook Travis, DANNY Care Coordination 02/19/2025 Telephone [facility], [facility] [address] [facility] [address] [place] [address] Kiki Ureña, DANNY Care Coordination from Last 3 Months Family History Medical [...] 75+ series) 2017 INFLUENZA VACCINE (#1) 2025 3, 04/19/2022, 04/04/2020, Additional history exists COVID-19 VACCINE [...] this topic Medical Devices Not on file Insurance [employer] HMO REPLACEMENT [employer] H[employer] REPLACEMENT MEDICARE HMO REPLACEMENT MEDICARE HMO REPLACEMENT Care Teams Management Accountant Relationship Specialty Start Date End Date Carmen Lara MD [address] [place] [address] PCP - General Internal Medicine 11/03/24 Wilman Sheets MD [address] [place] [id number] 11/25/24 Tony Marvin MD, PhD [address] [place] [phone] [email or web address] 11/25/24 Additional Source Comments The information contained in this document represents components of the legal health record. It is not the complete legal health record.[facility]
== END 2025-05-11 10:39 | disposition home or self-care (01) ==
LOC: HO.HMCC 09:31
PROVIDERS: PCP Internal Medicine; Visit Provider Internal Medicine
DX: Z00.00 Encounter for general adult medical examination without abnormal findings (principal); M85.89 Other specified disorders of bone density and structure, multiple sites; C25.9 Malignant neoplasm of pancreas, unspecified; M16.0 Bilateral primary osteoarthritis of hip; I10 Essential (primary) hypertension; E78.5 Hyperlipidemia, unspecified

== ENCOUNTER → 2025-05-11 09:31 | Outpatient (BNVA) | payer MEDICARE, SELFPAY | PROVIDERS: PCP Internal Medicine; Visit Provider Internal Medicine | DX: Z00.00 Encounter for general adult medical examination without abnormal findings (principal); I10 Essential (primary) hypertension; E78.5 Hyperlipidemia, unspecified; R20.0 Anesthesia of skin; M85.89 Other specified disorders of bone density and structure, multiple sites; M16.0 Bilateral primary osteoarthritis of hip; Z85.07 Personal history of malignant neoplasm of pancreas; Z85.3 Personal history of malignant neoplasm of breast | CPT/HCPCS: 96127 ==

== ENCOUNTER 2025-05-31 15:54 | Outpatient (REF) | payer MEDICARE, SELFPAY ==
--- NOTE | ~2025-05-31 | MM_ITS ---
EXAMINATION: MM SCREENING DIGITAL BREAST TOMOSYNTHESIS, BILATERAL CLINICAL INFORMATION: Screening. Asymptomatic. COMPARISON: Mammography: Comparison is made with available priors TECHNIQUE: Digital breast mammography with tomosynthesis is performed in both the craniocaudal and mediolateral oblique views along with computer-aided detection (CAD). FINDINGS: The breasts are extremely dense, which lowers the sensitivity of mammography. Left breast postsurgical changes are stable. There are no significant masses, abnormal calcifications, or other abnormalities. MM/MM tomosynthesis screening BI IMPRESSION: No mammographic evidence of malignancy. ASSESSMENT: BI-RADS Category 2: Benign RECOMMENDATION: Routine annual mammography screening. 1 year F/U This examination should not preclude the clinical evaluation of a suspicious palpable abnormality. This patient's information was entered into a reminder system with a target due date for their next mammogram. Electronically signed by: Teresa Gaxiola DO 05/31/2025 05:44 PM ROB
--- OUTSIDE RECORDS SUMMARY | 2025-05-31 20:14 | XMS_ITS ---
Author Organization [facility] Address [address] [facility] [address] [facility] [address] [place] [phone] Phone Care Team Providers Care Electronic Plotting System Operator Name Role Phone Carmen Lara MD [...]
--- OUTSIDE RECORDS SUMMARY | 2025-05-31 20:14 | XMS_ITS | Clinical Summary ---
Author Organization [facility] Address [address] [facility] [address] [address] [place] [address] Phone Care Team Providers Care Wirer Street Light Name Role Phone Carmen Lara MD Primary Care Provider Wilman Sheets MD Unavailable [phone] Tony Marvin MD, PhD Unavailable Allergies Active [...] 03/09/2025 Orders Only [facility], [facility] [place] [address] [facility], 10th Floor [place] [phone] Tony Marvin MD, PhD from Last 3 Months [...] REPLACEMENT [employer] MEDIC[employer] HMO REPLACEMENT [facility] MEDICARE HMO REPLACEMENT [employer] [employer] HMO REPLACEMENT Care Teams Wire[address] Light Relationship Specialty Start Date End Date Carmen Lara MD [address] [address] PCP - General Internal Medicine 11/03/24 Wilman Sheets MD [address] [place] [address] 11/25/24 Tony Marvin MD, PhD [address] [place] [phone] [email or web address] Medical Oncology 11/25/24 Additional Source Comments The information contained in this document represents components of the legal health record. It is not the complete legal health record.[facility]
== END 2025-05-31 15:55 | disposition home or self-care (01) ==
LOC: HO.MAMMO 15:54
PROVIDERS: PCP Internal Medicine; Visit Provider Surgery
DX: Z12.31 Encounter for screening mammogram for malignant neoplasm of breast (principal); D05.12 Intraductal carcinoma in situ of left breast
CPT/HCPCS: 77063; 77067

== ENCOUNTER → 2025-05-31 16:15 | Outpatient (BNV) | payer MEDICARE, SELFPAY | PROVIDERS: PCP Internal Medicine; Visit Provider Internal Medicine | DX: Z12.31 Encounter for screening mammogram for malignant neoplasm of breast (principal) | CPT/HCPCS: 77063; 77067 ==